=== PATIENT | female | born 1945 | race Caucasian/White ===

== ENCOUNTER 2018-05-27 03:11 | Emergency (ER) | payer OTHER ==
--- OUTSIDE RECORDS SUMMARY | 2018-05-27 03:13 | XMS REPORT | Clinical Summary ---
:1945 Author Organization [facility] Address [address] [place] [address] Phone Care Team Providers Name Role Phone Unavailable Primary Care Provider Unavailable Allergies No Known Allergies Current Medications Prescription Sig. Disp. Refills Start Date End Date Status losartan (COZAAR) 50 Take 50 mg by Active MG tablet mouth daily. atorvastatin (LIPITOR) Take 10 mg by Active 10 MG tablet mouth daily. rivaroxaban (XARELTO) Take 1 tablet 60 tablet 0 10/06/2016 Active 20 mg Tab tablet (20 mg total) by mouth daily. aspirin 81 MG EC Take 1 tablet 90 tablet 3 09/29/2016 09/29/2017 tablet (81 mg total) by mouth daily. Active Problems Problem Noted Date Tachycardia 09/28/2016 SVT (supraventricular tachycardia) (HCC) 09/28/2016 Varicose veins of bilateral lower extremities with other complications 2016 Acute pulmonary embolism (HCC) 09/28/2016 Pulmonary embolism (HCC) 09/28/2016 Social History Tobacco Use Types Packs/Day Years Used Date Never Smoker Alcohol Use Drinks/Week oz/Week Comments No Sex Assigned at Date Recorded Not on file Last Filed Vital Signs Not on file Plan of Treatment Not on file Results Not on fileafter 05/26/2017
--- OUTSIDE RECORDS SUMMARY | 2018-05-27 03:13 | XMS REPORT | Clinical Summary ---
:1945 Author Organization [facility] Address [address] [place] [address] Care Team Providers Name Role Phone Rosalee Resendez MD Primary Care Provider Allergies Active Allergy Reactions Severity Noted Date Comments Ezetimibe Other (See Comments) 01/20/2016 Body aches, dizziness Neuromuscular Blockers, Other (See Comments) 01/20/2016 Patient not sure why Steroidal this is here Loss of appetite, anxious, dperession Current Medications Prescription Sig. Disp. Refills Start Date End Date Status atorvastatin TAKE 1 TABLET 90 tablet 1 10/20/2016 Active (LIPITOR) 10 MG EVERY DAY tablet acetaminophen Take 500 mg by Active (TYLENOL) 500 MG mouth as needed tablet for mild pain. Takes one tab po a few times a week. aspirin (ECOTRIN) Take 81 mg by Active 81 MG enteric mouth daily. coated tablet naproxen sodium Take 220 mg by Active (ALEVE) 220 MG mouth as needed tablet (As needed for arthritis pain). atorvastatin TAKE 1 TABLET 90 tablet 2 11/01/2017 Active (LIPITOR) 10 MG BY MOUTH EVERY tablet NIGHT losartan (COZAAR) TAKE 1 TABLET 90 tablet 1 02/05/2018 Active 50 MG tablet EVERY DAY losartan (COZAAR) TAKE 1 TABLET 90 tablet 3 11/06/2016 Discontinued 50 MG tablet EVERY DAY 8 Active Problems Problem Noted Date Acute deep vein thrombosis (DVT) of proximal vein of left lower extremity 09/2016 (HCC) Overview: Following varicose vein stripping in 09/2016. Complicated by PE. Treated for 3 months with Xarelto Primary osteoarthritis involving multiple joints 01/19/2017 Pulmonary embolism (HCC) 09/28/2016 Vitamin D deficiency 03/07/2016 Varicose veins of both lower extremities 03/07/2016 Osteopenia 03/07/2016 Knee pain 03/07/2016 HLD (hyperlipidemia) 03/07/2016 Bilateral hearing loss 03/07/2016 Overview: Severe hearing loss, wears right sided hearing aide but relies heavily on lip reading Essential hypertension 03/07/2016 Impaired fasting glucose 03/07/2016 Encounters Date Type Specialty Care Team Description 02/04/2018 Refill Internal Medicine Rosalee Resendez MD 10/30/2017 Refill Internal Medicine Rosalee Resendez MD 05/29/2017 Hospital Encounter Radiology Rosalee Resendez, Encounter for MD screening mammogram for malignant neoplasm of breast after 05/26/2017 Family History Medical History Relation Name Comments Heart failure Mother Other Mother PACEMAKER; conduction disorder of the heart Hypertension Other essential hypertension Relation Name Status Comments Mother Other Social History Tobacco Use Types Packs/Day Years Used Date Never Smoker Alcohol Use Drinks/Week oz/Week Comments No Sex Assigned at Date Recorded Not on file Last Filed Vital Signs Not on file Plan of Treatment Health Maintenance Due Date Last Done Comments SHINGRIX VACCINE (#1) 1993 DXA SCAN 08/10/2017 08/10/2015 BREAST CANCER SCREENING 05/29/2019 05/29/2017, 05/02/2016, 08/20/2014 COLON CANCER SCREENING Excluded INFLUENZA VACCINE Excluded PNEUMOCOCCAL POLYSACCHARIDE VACCINE Excluded AGE 65 AND OVER PNEUMOCOCCAL-13 Excluded ZOSTER VACCINE Excluded Procedures Procedure Name Priority Date/Time Associated Diagnosis Comments MAMMO SCREENING W Routine 05/29/2017 9:52 AM Encounter for Results for this CAD BILATERAL CDT screening mammogram procedure are in for malignant the results neoplasm of breast section. after 05/26/2017 Results Mammo Screening w Cad Bilateral (05/29/2017 9:52 AM) Narrative Performed At PROCEDURE: [facility] MAMMO SCREENING W CAD BILATERAL Computer-assisted detection was utilized for the interpretation of this exam. COMPARISON: 2015 TECHNIQUE: Bilateral digital screening mammogram was performed and interpreted using computer-assisted detection. CLINICAL HISTORY: The patient has no current palpable breast complaints. FINDINGS: Bilateral mammogram demonstrates the breast parenchyma to be scattered fibroglandular densities. LEFT:No specific features of malignancy. RIGHT: No specific features of malignancy. IMPRESSION: BI-RADS Category 2. Benign finding(s). Recommend comparison with physical exam and annual screening mammography. There has been no significant interval change from prior studies. This facility is accredited by [employer] for Mammography. A negative x-ray report should not delay biopsy if a dominant or clinically suspicious mass is present. Not all cancers are identified by x-ray. [id number] Performing Organization Address City/State/Zipcode Phone Number [facility] [address] [place] [address] after 05/26/2017 Insurance Payer Benefit Plan / Group Subscriber ID Type Phone Address MEDICARE MEDICARE PART A AND B xxxxxxxxxx Medicare [place], [place] AETNA AETNA [facility] INDEMNITY xxxxxxxxx Ind[facility]ity [facility] y [phone] [place], [place] [id number]
[2018-05-27] MEDS ORDERED: IPRATROPIUM BROM 0.5MG/2.5ML ONE (03:49)
[2018-05-27] MEDS ORDERED: ALBUTEROL 2.5 MG/3 ML NEB SOL ONE (03:49)
[2018-05-27 03:50] LABS: Absolute Lymphocytes (CBC) 2.3 K/uL (0.7-4.9); Absolute Monocytes 0.5 K/uL (0.1-1.3); Absolute Neutrophil 3.6 K/uL (1.8-8.0); Basophils % 0.4 % (0-1.3); Eosinophils % 2.6 % (0-4.4); Hematocrit 38.6 % (36.0-45.0); Lymphocytes % 34.8 % (15.3-44.8); MCH 28.9 pg (27.0-35.0); MCV 82.1 fL (80-100); Monocytes % 8.2 % (3.3-12.3)
[2018-05-27 04:09] LABS: ALT/SGPT 27 U/L (12-78); AST/SGOT 19 U/L (15-37); Albumin 3.7 g/dL (3.4-5.0); Alkaline Phosphatase 74 U/L (45-117); BUN Blood Urea Nitrogen 14 mg/dL (7-18); Bicarbonate 21 mmol/L (21-32); Bilirubin Direct 0.1 mg/dL (0-0.2); Bilirubin Total 0.4 mg/dL (0.2-1.0); CKMB Creatine Kinase MB 3.3 ng/mL (0.3-3.6); Creatine Phosphokinase 115 U/L (26-192); Glucose Level 94 mg/dL (74-106); Lipase 315 U/L (73-393); NT PRO-BNP 51 pg/mL (<450); Potassium 3.5 mmol/L (3.5-5.1); Protein, Total 7.3 g/dL (6.4-8.2); Sodium Level 140 mmol/L (136-145); Troponin (Emerg Dept Use Only) < 0.02 ng/mL (0.0-0.045)
--- NOTE | 2018-05-27 05:51 | EDPHYS ---
Physician Documentation [facility] Name: Rosario Randhawa Age: 73 yrs Sex: Female : 1945 Arrival Date: 05/27/2018 Time: 03:19 Bed 6 Private MD: ED Physician Alonso Chan HPI: 05/27 04:55 This 73 yrs old Female presents to ER via EMS with complaints of Shortness Of tw4 Breath. 04:55 The patient has shortness of breath at rest. Onset: The symptoms/episode began/occurred tw4 today. Duration: The symptoms are continuous, and are unchanged since they started. The patient's shortness of breath has no apparent modifying factors. Associated signs and symptoms: The patient has no apparent associated signs or symptoms. Severity of symptoms: At their worst the symptoms were moderate in the emergency department the symptoms are unchanged. The patient has not experienced similar symptoms in the past. The patient has not recently seen a physician. Historical: - Allergies: 03:34 No Known Allergies; ea - Home Meds: 03:34 losartan 50 mg Oral tab 1 tab once daily [Active]; atorvastatin 10 mg Oral tab 1 tab ea once daily [Active]; amoxicillin 500 mg Oral cap 1 cap 3 times per day [Active]; - PMHx: 03:34 Hypertension; High Cholesterol; Arthritis; ea - PSHx: 03:34 vericose vein surg to left lower leg; bladder susp; ea - Immunization history:: Adult Immunizations up to date. - Social history:: Smoking status: Patient/guardian denies using tobacco. - Ebola Screening: : No symptoms or risks identified at this time. ROS: 04:55 Constitutional: Negative for fever, chills, and weight loss, Cardiovascular: Negative tw4 for chest pain, palpitations, and edema, Abdomen/GI: Negative for abdominal pain, nausea, vomiting, diarrhea, and constipation, MS/Extremity: Negative for injury and deformity, Skin: Negative for injury, rash, and discoloration, Neuro: Negative for headache, weakness, numbness, tingling, and seizure. 04:55 Respiratory: Positive for cough, pleurisy, shortness of breath, Negative for dyspnea on exertion, hemoptysis, orthopnea. Exam: 04:55 Constitutional: This is a well developed, well nourished patient who is awake, alert, tw4 and in no acute distress. Head/Face: Normocephalic, atraumatic. Chest/axilla: Normal chest wall appearance and motion. Nontender with no deformity. No lesions are appreciated. Cardiovascular: Regular rate and rhythm with a normal S1 and S2. No gallops, murmurs, or rubs. Normal PMI, no JVD. No pulse deficits. Respiratory: Lungs have equal breath sounds bilaterally, clear to auscultation and percussion. No rales, rhonchi or wheezes noted. No increased work of breathing, no retractions or nasal flaring. Abdomen/GI: Soft, non-tender, with normal bowel sounds. No distension or tympany. No guarding or rebound. No evidence of tenderness throughout. Back: No spinal tenderness. No costovertebral tenderness. Full range of motion. MS/ Extremity: Pulses equal, no cyanosis. Neurovascular intact. Full, normal range of motion. Neuro: Awake and alert, GCS 15, oriented to person, place, time, and situation. Cranial nerves II-XII grossly intact. Motor strength 5/5 in all extremities. Sensory grossly intact. Cerebellar exam normal. Normal gait. Vital Signs: 03:08 BP 148 / 102; Pulse 76; Resp 22; Temp 98(O); Pulse Ox 99% on R/A; Weight 81.65 kg; ea Height 5 ft. 6 in. (167.64 cm); 04:22 BP 149 / 81; Pulse 64; Resp 20; Pulse Ox 100% on R/A; ea 05:09 BP 140 / 78; Pulse 100; Resp 20; Pulse Ox 98% ; ea 06:29 BP 130 / 70; Pulse 70; Resp 20; Temp 98(O); Pulse Ox 99% ; ea 03:08 Body Mass Index 29.05 (81.65 kg, 167.64 cm) ea MDM: 03:19 Patient medically screened. tw4 05:47 Differential diagnosis: Anemia Anxiety Reaction pneumonia, pulmonary edema, reactive tw4 airway disease. Data reviewed: vital signs, nurses notes. Data interpreted: Pulse oximetry: Interpretation: normal. Counseling: I had a detailed discussion with the patient and/or guardian regarding: the historical points, exam findings, and any diagnostic results supporting the discharge/admit diagnosis. Medication response: Response to treatment: the patient's symptoms have resolved after treatment, and as a result, I will discharge patient. Special discussion: I discussed with the patient/guardian in detail that at this point there is no indication for admission to the hospital. It is understood, however, that if the symptoms persist or worsen the patient needs to return immediately for re-evaluation. 05/27 03:20 Order name: BMP; Complete Time: 04:54 05/27 04:54 Interpretation: Normal except: GFR 82. 05/27 03:20 Order name: CBC with Diff; Complete Time: 04:54 05/27 04:54 Interpretation: Within normal limits. 05/27 03:20 Order name: Ckmb; Complete Time: 04:54 05/27 03:20 Order name: CPK; Complete Time: 04:54 05/27 03:20 Order name: Hepatic Function; Complete Time: 04:54 05/27 04:54 Interpretation: Normal except: GLOB 3.6; A/G 1.0. 05/27 03:20 Order name: Lipase; Complete Time: 04:54 05/27 03:20 Order name: NT PRO-BNP; Complete Time: 04:54 05/27 03:20 Order name: Troponin (emerg Dept Use Only); Complete Time: 04:54 05/27 03:20 Order name: EKG; Complete Time: 03:20 05/27 03:20 Order name: Cardiac monitoring; Complete Time: 03:20 05/27 03:20 Order name: EKG - Nurse/Tech; Complete Time: 03:30 05/27 03:20 Order name: IV Saline Lock; Complete Time: 03:20 05/27 04:54 Order name: CXR XRAY 05/27 03:20 Order name: Labs collected and sent; Complete Time: 03:47 05/27 03:20 Order name: O2 Per Protocol; Complete Time: 03:21 05/27 03:20 Order name: O2 Sat Monitoring; Complete Time: 03:21 tw4 Administered Medications: 03:46 Drug: Albuterol - atroVENT (3:1) (2.5 mg - 0.5 mg) 3 ml Route: Nebulizer; ea 04:36 Follow up: Response: No adverse reaction; Marked relief of symptoms ea Disposition: 05/27/18 05:50 Discharged to Home. Impression: Bronchitis, not specified as acute or chronic. - Condition is Stable. - Discharge Instructions: Acute Bronchitis, Adult, Metered Dose Inhaler with Spacer. - Prescriptions for Tessalon Perles 100 mg Oral Capsule - take 1 capsule by ORAL route every 8 hours As needed; 15 capsule. Guaifenesin AC 10- 100 mg/5 mL Oral Liquid - take 10 milliliter by ORAL route every 4 hours As needed; 240 milliliter. Albuterol Sulfate 90 mcg/actuation - inhale 1-2 puff by INHALATION route every 4-6 hours; 1 Inhaler. Albuterol Sulfate 2.5 mg /3 mL (0.083 %) Inhalation Solution for Nebulization - inhale 1 unit by NEBULIZATION route every 8 hours As needed; 1 box. - Medication Reconciliation Form, Thank You Letter, Antibiotic Education, Prescription Opioid Use form. - Follow up: Private Physician; When: Upon discharge from the Emergency Department; Reason: Recheck today's complaints, Re-evaluation by your physician. - Problem is new. - Symptoms have improved. Signatures: Dispatcher [employer] EDMS Maryan Peralta RN RN ea Wadley, Terrence, MD MD tw4 Corrections: (The following items were deleted from the chart) 06:31 05:50 05/27/2018 05:50 Discharged to Home. Impression: Bronchitis, not specified as ea acute or chronic. Condition is Stable. Forms are Medication Reconciliation Form, Thank You Letter, Antibiotic Education, Prescription Opioid Use. Follow up: Private Physician; When: Upon discharge from the Emergency Department; Reason: Recheck today's complaints, Re-evaluation by your physician. Problem is new. Symptoms have improved. tw4
--- NOTE | 2018-05-27 05:51 | ER ---
Nurse's Notes [facility] Name: Rosario Randhawa Age: 73 yrs Sex: Female : 1945 Arrival Date: 05/27/2018 Time: 03:19 Bed 6 Private MD: Diagnosis: Bronchitis, not specified as acute or chronic Presentation: 05/27 03:05 Presenting complaint: EMS states: Pt reported she was sitting on her recliner and ea started feeling short of breath. Pt reports being diagnosed Sunday with a sinus infection and was prescribed Amoxicillin. Transition of care: patient was not received from another setting of care. Onset of symptoms was May 27, 2018. Risk Assessment: Do you want to hurt yourself or someone else? Patient reports no desire to harm self or others. Initial Sepsis Screen: Does the patient meet any 2 criteria? RR > 20 per min. No. Patient's initial sepsis screen is negative. Does the patient have a suspected source of infection? No. Patient's initial sepsis screen is negative. Care prior to arrival: None. 03:05 Method Of Arrival: EMS: [facility] ea 03:05 Acuity: JOSE 3 ea Triage Assessment: 03:30 General: Appears uncomfortable, Behavior is appropriate for age, restless. Pain: Denies ea pain. Neuro: Level of Consciousness is awake, alert, obeys commands, Oriented to person, place, time. Cardiovascular: Heart tones S1 S2 present Patient's skin is warm and dry. Respiratory: Reports shortness of breath cough that is productive, Airway is patent Respiratory effort is even, unlabored, Respiratory pattern is regular, symmetrical, Breath sounds are clear bilaterally. Onset: The symptoms/episode began/occurred Sunday, the patient has mild shortness of breath. Derm: Skin is pink, warm \T\ dry. Historical: - Allergies: 03:34 No Known Allergies; ea - Home Meds: 03:34 losartan 50 mg Oral tab 1 tab once daily [Active]; atorvastatin 10 mg Oral tab 1 tab ea once daily [Active]; amoxicillin 500 mg Oral cap 1 cap 3 times per day [Active]; - PMHx: 03:34 Hypertension; High Cholesterol; Arthritis; ea - PSHx: 03:34 vericose vein surg to left lower leg; bladder susp; ea - Immunization history:: Adult Immunizations up to date. - Social history:: Smoking status: Patient/guardian denies using tobacco. - Ebola Screening: : No symptoms or risks identified at this time. Screenin:29 Abuse screen: Denies threats or abuse. Nutritional screening: No deficits noted. ea Tuberculosis screening: No symptoms or risk factors identified. Fall Risk None identified. Assessment: 04:21 Reassessment: Patient and/or family updated on plan of care and expected duration. Pain ea level reassessed. Patient is alert, oriented x 3, equal unlabored respirations, skin warm/dry/pink. 05:09 Reassessment: Patient and/or family updated on plan of care and expected duration. Pain ea level reassessed. Patient is alert, oriented x 3, equal unlabored respirations, skin warm/dry/pink. Patient states symptoms have improved. 06:28 Reassessment: Patient and/or family updated on plan of care and expected duration. Pain ea level reassessed. Patient is alert, oriented x 3, equal unlabored respirations, skin warm/dry/pink. Discharge instructions given to patient, verbalized the understanding of instruction. Patient states symptoms have improved. 06:29 Cardiovascular: Rhythm is. ea Vital Signs: 03:08 BP 148 / 102; Pulse 76; Resp 22; Temp 98(O); Pulse Ox 99% on R/A; Weight 81.65 kg; ea Height 5 ft. 6 in. (167.64 cm); 04:22 BP 149 / 81; Pulse 64; Resp 20; Pulse Ox 100% on R/A; ea 05:09 BP 140 / 78; Pulse 100; Resp 20; Pulse Ox 98% ; ea 06:29 BP 130 / 70; Pulse 70; Resp 20; Temp 98(O); Pulse Ox 99% ; ea 03:08 Body Mass Index 29.05 (81.65 kg, 167.64 cm) ea ED Course: 03:18 Inserted saline lock: 20 gauge in right antecubital area, using aseptic technique. [id number] Blood collected. 03:19 Patient arrived in ED. ea 03:19 Alonso Chan MD is Attending Physician. tw4 03:19 Arm band placed on right wrist. 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 03:28 Triage completed. ea 03:30 EKG done, by ED staff, reviewed by Alonso Chan MD. ao 03:32 Patient has correct armband on for positive identification. Bed in low position. Call ea light in reach. Side rails up X2. 03:36 Maryan Peralta, RN is Primary Nurse. ea 05:07 X-ray completed. Portable x-ray completed in exam room. Patient tolerated procedure kw well. 05:09 CXR XRAY In Process Unspecified. EDMS 06:00 No provider procedures requiring assistance completed. ea 06:28 IV discontinued, intact, bleeding controlled, No redness/swelling at site. Pressure ea dressing applied. Administered Medications: 03:46 Drug: Albuterol - atroVENT (3:1) (2.5 mg - 0.5 mg) 3 ml Route: Nebulizer; ea 04:36 Follow up: Response: No adverse reaction; Marked relief of symptoms ea Outcome: 05:50 Discharge ordered by . tw4 06:29 Discharged to home via wheelchair, with family. ea 06:29 Condition: improved 06:29 Discharge instructions given to patient, Instructed on discharge instructions, follow up and referral plans. medication usage, Demonstrated understanding of instructions, follow-up care, medications, Prescriptions given X 3. 06:31 Patient left the ED. ea Signatures: Dispatcher [employer] EDMS Lizeth Cherry Alex, RN RN Quyen Heller jb5 Maryan Peralta, RN RN Alonso Rivera MD MD tw4
[2018-05-27 06:42] VITALS: BP 130/70; TEMP 98; O2SAT 99
--- NOTE | 2018-05-27 07:26 | EKG ---
Test Date: 2018-05-27 Test Time: 03:27:46 Milk Of Lime Slaker: JOSE MANUEL MEASUREMENT RESULTS: Intervals: Rate: 72 PA: 178 QRSD: 106 QT: 392 QTc: 429 [place]: P: 77 PA: 178 QRS: 62 T: 59 INTERPRETIVE STATEMENTS: Normal sinus rhythm Normal ECG Compared to ECG 09/27/2016 21:17:14 No significant changes Electronically Signed On 05-27-18 07:26:03 CDT by Price Flowers
--- NOTE | 2018-05-27 08:51 | RAD REPORT ---
EXAM DESCRIPTION: RAD - Chest Single View - 05/27/2018 5:10 am CLINICAL HISTORY: CONGESTION Chest pain. COMPARISON: Chest Single View dated 09/27/2016; CHEST SINGLE VIEW dated 11/23/2013; CHEST PA AND LAT 2 V IEW dated 11/14/2013; CHEST PA AND LAT 2 VIEW dated 08/18/2002 FINDINGS: Portable technique limits examination quality. Vague opacity is present in the medial right lung base which may represent developing pneumonia. The heart is upper limit normal in size. No displaced fractures.
== END 2018-05-27 06:31 | disposition home or self-care (01) ==
LOC: ER 03:11
DX: J40 Bronchitis, not specified as acute or chronic (principal); I10 Essential (primary) hypertension; E78.00 Pure hypercholesterolemia, unspecified
CPT/HCPCS: 36415; 71045; 80048; 80076; 82550; 82553; 83690; 83880; 84484; 85025; 93005; 94640; 99285

== ENCOUNTER 2019-08-21 19:27 | Emergency (ER) | payer OTHER ==
--- OUTSIDE RECORDS SUMMARY | 2019-08-21 19:29 | XMS REPORT | Summary of Care ---
:1945 [address] [facility] Address [address] [place] [address] Care Team Providers Name Role Phone Craig Cooper Primary Care Provider Encounter Details Date Type Department Care Team Description 03/27/[address] [facility] Doctor Unassigned, No [address] [facility] [place] [address] [address] [place] [address] Allergies No Known Allergiesdocumented as of this encounter (statuses as of 03/27/2019) Medications Medication Sig Dispensed Refills Start Date End Date Status losartan 100 mg tablet Take 100 mg by 0 Active mouth daily. documented as of this encounter (statuses as of 03/27/2019) Active Problems No known active problemsdocumented as of this encounter (statuses as of 2018) Social History Tobacco Use Types Packs/Day Years Used Date Never Smoker Smokeless Tobacco: Never Used Alcohol Use Drinks/Week oz/Week Comments Never Alcohol Habits Answer Date Recorded How often do you have a drink containing alcohol? Never 03/26/2019 How many drinks containing alcohol do you have on a typical Not asked day when you are drinking? How often do you have six or more drinks on one occasion? Not asked Sex Assigned at Date Recorded Not on file Job Start Date Occupation Industry Not on file Not on file Not on file Travel History Travel Start Travel End No recent travel history available. documented as of this encounter Last Filed Vital Signs Not on filedocumented in this encounter Plan of Treatment Health Maintenance Due Date Last Done Comments DTaP,Tdap,and Td Vaccines (1 - Tdap) 1962 MAMMOGRAM 1983 COLONOSCOPY 1993 Zoster Recombinant Vaccine (SHINGRIX) (1 of 2) 1993 Medicare Wellness Visit 2008 Osteoporosis Screening 2008 PNEUMOCOCCAL VACCINES 65+ (1 of 2 - PCV13) 2008 INFLUENZA VACCINE 04/20/2019 documented as of this encounter Implants Implanted Type Area Cashier Clerk Device Shelf Model / Identifier Expiration Date Serial / Lot Lens, Landen #[id number] - [id number] LENS Right: Landen 07/19/2023 [id number] / Implanted: Qty: 1 on 03/27/2019 by Tommy Baptiste MD at [facility] Eye [id number] / N/A documented as of this encounter Procedures Procedure Name Priority Date/Time Associated Diagnosis DAY SURGERY - ADC Routine 03/27/2019 12:01 AM CDT documented in this encounter Results Not on filedocumented in this encounter Insurance Payer Benefit Plan / Subscriber ID Effective Dates Phone Address Type Group MEDICARE MEDICARE PART A xxxxxxxxxxx 2008-Rakesh [id number] [place] [id number] AETNA AETNA INDEMNITY [id number] 2013-Rakesh Indemnity t documented as of this encounter
--- OUTSIDE RECORDS SUMMARY | 2019-08-21 19:29 | XMS REPORT | Summary of Care ---
:1945 Author Organization [facility] Address [address] [place] [id number] Care Team Providers Name Role Phone Allison Craig Velasquez Primary Care Provider Reason for Visit Auth/Cert Status Reason Specialty Diagnoses / Procedures Referred By Contact Referred To Contact Surgery Diagnoses Age-related nuclear cataract, right eye cataract Right eye Adc Pre/Pacu/Post Procedures MO REMV CATARACT EXTRACAP,INSERT LENS PHACOEMULSIFICATION OF CATARACT WITH INTRAOCULAR LENS IMPLANT [address] [place] [address] [place] [address] Encounter Details Date Type Department Care Team Description 03/27/2019 Hospital Encounter [facility] MD Anthony [address] [place] [address] [address] [place] [address] [place] [address] [place] [phone] Allergies No Known Allergiesdocumented as of this [...] of this encounter Last Filed Vital Signs Vital Sign Reading Time Taken Comments Blood Pressure 158/74 03/27/2019 11:05 AM CDT Pulse 55 03/27/2019 11:05 AM CDT Temperature 36.5 C (97.7 F) 03/27/2019 11:05 AM CDT Respiratory Rate 16 03/27/2019 11:05 AM CDT Oxygen Saturation 97% 03/27/2019 11:05 AM CDT Inhaled Oxygen Concentration - - Weight 70.3 kg (155 lb) 03/26/2019 11:00 AM CDT Height 160 cm (5' 3") 03/26/2019 11:00 AM CDT Body Mass Index 27.46 03/26/2019 11:00 AM CDT documented in this encounter Discharge Summaries Tommy Baptiste MD - 03/27/2019 8:31 AM CDTCONDITION AT DISCHARGE: Patient was discharged from the facility in stable condition. Please see discharge instructions. FOLLOW UP CARE: See post op instructions. DISCHARGE DISPOSITION: HOME DISCHARGE INSTRUCTIONS GIVEN TO: PATIENT documented in this encounter Discharge Instructions InstructionsUriel Rubio RN - 03/27/2019CATARACT DISCHARGE INSTRUCTIONS 1. DO NOT Remove the eye patch. Leave on until you post-operative visit tomorrow. Keep it dry. 2. Activities as tolerated 3. Please no heavy lifting, and do not drive or operate machinery until you are seen by a doctor on your first post op day. 4. Your depth perception may be off, so walk a little slower. Be careful on steps or stairs and uneven ground and go slower around corners. 5. Most likely your eye will stay numb until tomorrow and you should not experience any extreme pain. However, if you should have bad pain or nausea, please call the doctor's office or hospital automatic winder operator to get in touch with doctor. 6. For mild discomfort or a headache, you may take Tylenol, Aspirin, or Ibuprofen (in not allergic). 7. You may resume your pre-operative diet. 8. If you have any further questions or concerns, please call the office or hospital automatic winder operator to getin touch with the doctor. documented in this encounter Plan of Treatment Health Maintenance Due Date Last Done Comments DTaP,Tdap,and Td Vaccines (1 - Tdap) 1962 MAMMOGRAM 1983 COLONOSCOPY 1993 Zoster Recombinant Vaccine (SHINGRIX) (1 of 2) 1993 Medicare Wellness Visit 2008 Osteoporosis Screening 2008 PNEUMOCOCCAL VACCINES 65+ (1 of 2 - PCV13) 2008 INFLUENZA VACCINE 04/20/2019 documented as of this encounter Implants Implanted Type Area Guide Device Shelf Model / Identifier Expiration Date Serial / Lot Lens, Landen #[id number] - [id number] LENS Right: Landen 07/19/2023 [id number] / Implanted: Qty: 1 on 03/27/2019 by Tommy Baptiste MD at [facility] Eye [id number] / N/A documented as of this encounter Procedures Procedure Name Priority Date/Time Associated Diagnosis Comments NOTICE OF PRIVACY Routine 03/18/2019 3:14 PM PRACTICES CDT CONSENT/REFUSAL FOR Routine 03/18/2019 3:14 PM DIAGNOSIS AND TREATMENT CDT CONSENT/REFUSAL FOR Routine 03/18/2019 3:13 PM DIAGNOSIS AND TREATMENT CDT ASSIGNMENT OF BENEFITS Routine 03/18/2019 3:13 PM CDT ASSIGNMENT OF BENEFITS Routine 03/18/2019 3:13 PM CDT PHYSICIAN ORDERS Routine 03/18/2019 12:01 AM CDT documented in this encounter Results Not on filedocumented in this encounter Visit Diagnoses Diagnosis Nuclear sclerotic cataract, right - Primary documented in this encounter Administered Medications Medication Order MAR Action Action Date Dose Rate Site balanced salt irrig soln Given 03/27/2019 10:30 AM CDT 500 mL Right Eye comb1 (BSS PLUS) ophthalmic solution 500 mL bag PRN, Starting Maria Elena 03/27/19 at 1030, Until Discontinued, Routine, Intra-op bupivacaine (preserv free) Given 03/27/2019 10:30 AM CDT 5.5 mL Right Eye (SENSORCAINE MPF) 0.75 % (7.5 mg/mL) injection PRN, Starting Maria Elena 03/27/19 at 1030, Until Discontinued, Routine, Intra-op ceFAZolin (ANCEF) injection Given 03/27/2019 10:30 AM CDT 0.1 mL Right Eye PRN, Starting Maria Elena 03/27/19 at 1030, Until Discontinued, SUDHIR, Intra-op dexamethasone (DECADRON PHOSPHATE) injection Given 03/27/2019 10:30 AM CDT 0.2 mL PRN, Starting Maria Elena 03/27/19 at 1030, Until Discontinued, Routine, Intra-op DUOVISC (DUOVISC VISCO ELASTIC) 3 %-4 Given 03/27/2019 10:30 AM CDT 1 Kit Right Eye %(0.5 mL) 1 % (0.55 mL) intraocular injection PRN, Starting Sun03/27/19 at 1030, Until Discontinued, Routine, Intra-op EPINEPHrine (PF) 1:1,000 (1 mg/mL) Given 03/27/2019 10:30 AM CDT 0.5 mg Right Eye (ADRENALIN (PF)) injection PRN, Starting Maria Elena 03/27/19 at 1030, Until Discontinued, Routine, Intra-op gentamicin injection Given 03/27/2019 10:30 AM CDT 0.1 mL Right Eye PRN, Starting Maria Elena 03/27/19 at 1056, Until Discontinued, SUDHIR, Intra-op lidocaine-epinephrine (XYLOCAINE Given 03/27/2019 10:30 AM CDT 5.5 mL Right Eye W/EPINEPHRINE) 2 %-1:200,000 injection PRN, Starting Sun03/27/19 at 1030, Until Discontinued, Routine, Intra-op qkrqczhs-xgqfmjrtg-plaffmqglccuf Given 03/27/2019 10:30 0.5 Inches Right Eye (MAXITROL) 3.5 mg/g-10,000 unit/g-0.1 % AM CDT ophthalmic ointment PRN, Starting Sun03/27/19 at 1030, Until Discontinued, Routine, Intra-op sodium chloride (NS) injection Given 03/27/2019 10:30 AM CDT 10 mL Right Eye PRN, Starting Sun03/27/19 at 1057, Until Discontinued, Routine, Intra-op tetracaine (PONTOCAINE) 0.5 % Given 03/27/2019 10:30 AM CDT 3 Drops Right Eye ophthalmic drops PRN, Starting Sun03/27/19 at 1030, Until Discontinued, Routine, Intra-op water for irrigation irrigation Given 03/27/2019 10:30 AM CDT 50 mL Right Eye solution PRN, Starting Maria Elena 03/27/19 at 1030, Until Discontinued, Routine, Intra-op Medication Order MAR Action Action Date Dose Rate Site lactated ringers IV infusion New Bag 03/27/2019 8:54 AM CDT 500 mL 20 mL/ hr 500 mL at 20 mL/hr, 500 mL, IV Infusion, ONCE, 1 dose, Maria Elena 03/27/19 at 0830, Routine, DSU Pre-op mydriatic #5 ophthalmic solution 0.5 mL Given 03/27/2019 9:02 AM CDT 0.5 mL syringe 0.5 mL, Right Eye, ONCE, 1 dose, Maria Elena 03/27/19 at 0845, Routine, DSU Pre-op documented in this encounter Insurance Payer Benefit Plan / Subscriber ID Effective Dates Phone Address Type Group MEDICARE MEDICARE PART A xxxxxxxxxxx 2008-Rakesh [id number] [place] [id number] AETNA AETNA INDEMNITY [id number] 2013-Rakesh oliva (Home) [place] [address] documented as of this encounter
--- OUTSIDE RECORDS SUMMARY | 2019-08-21 19:29 | XMS REPORT ---
:1945 [facility] Address [address] [place] [address] Care Team Providers Name Role Phone Unavailable Unavailable Unavailable Problems This patient has no known problems. Allergies, Adverse Reactions, Alerts This patient has no known allergies or adverse reactions. Medications This patient has no known medications.
--- NOTE | 2019-08-21 21:37 | EDPHYS ---
Physician Documentation [facility] Name: Rosario Randhawa Age: 74 yrs Sex: Female : 1945 Arrival Date: 08/21/2019 Time: 19:29 Bed 8 Private MD: ED Physician Tao Coleman HPI: 08/21 21:32 This 74 yrs old Female presents to ER via Ambulatory with complaints of Cough.kandice 21:32 The patient or guardian reports cough. Onset: The symptoms/episode began/occurred 4 kandice day(s) ago. Severity of symptoms: At their worst the symptoms were mild, in the emergency department the symptoms are unchanged. Modifying factors: The symptoms are alleviated by nothing, the symptoms are aggravated by nothing. Associated signs and symptoms: The patient has no apparent associated signs or symptoms. The patient has experienced similar episodes in the past, a few times. Historical: - Allergies: 19:37 "sensitive to anything that makes some drowsy"; jd3 - Home Meds: 19:37 losartan 100 mg oral tab 1 tab once daily [Active]; atorvastatin 10 mg Oral tab 1 tab jd3 once daily [Active]; - PMHx: 19:37 Arthritis; High Cholesterol; Hypertension; jd3 - PSHx: 19:37 vericose vein surg to left lower leg; bladder susp; jd3 - Immunization history:: Adult Immunizations up to date, Flu vaccine is not up to date. - Social history:: Smoking status: Patient/guardian denies using tobacco. - Ebola Screening: : Patient negative for fever greater than or equal to 101.5 degrees Fahrenheit, and additional compatible Ebola Virus Disease symptoms. ROS: 21:33 Constitutional: Negative for fever, chills, and weight loss, Eyes: Negative for injury, kandice pain, redness, and discharge, ENT: Negative for injury, pain, and discharge, Neck: Negative for injury, pain, and swelling, Cardiovascular: Negative for chest pain, palpitations, and edema, Abdomen/GI: Negative for abdominal pain, nausea, vomiting, diarrhea, and constipation, Back: Negative for injury and pain, : Negative for injury, bleeding, discharge, and swelling, MS/Extremity: Negative for injury and deformity, Skin: Negative for injury, rash, and discoloration, Neuro: Negative for headache, weakness, numbness, tingling, and seizure, Psych: Negative for depression, anxiety, suicide ideation, homicidal ideation, and hallucinations, Allergy/Immunology: Negative for hives, rash, and allergies, Endocrine: Negative for neck swelling, polydipsia, polyuria, polyphagia, and marked weight changes, Hematologic/Lymphatic: Negative for swollen nodes, abnormal bleeding, and unusual bruising. 21:33 Respiratory: Positive for cough, with no reported sputum. Exam: 21:33 Constitutional: This is a well developed, well nourished patient who is awake, alert, kandice and in no acute distress. Head/Face: Normocephalic, atraumatic. Eyes: Pupils equal round and reactive to light, extra-ocular motions intact. Lids and lashes normal. Conjunctiva and sclera are non-icteric and not injected. Cornea within normal limits. Periorbital areas with no swelling, redness, or edema. ENT: Nares patent. No nasal discharge, no septal abnormalities noted. Tympanic membranes are normal and external auditory canals are clear. Oropharynx with no redness, swelling, or masses, exudates, or evidence of obstruction, uvula midline. Mucous membranes moist. Neck: Trachea midline, no thyromegaly or masses palpated, and no cervical lymphadenopathy. Supple, full range of motion without nuchal rigidity, or vertebral point tenderness. No Meningismus. Chest/axilla: Normal chest wall appearance and motion. Nontender with no deformity. No lesions are appreciated. Cardiovascular: Regular rate and rhythm with a normal S1 and S2. No gallops, murmurs, or rubs. Normal PMI, no JVD. No pulse deficits. Respiratory: Lungs have equal breath sounds bilaterally, clear to auscultation and percussion. No rales, rhonchi or wheezes noted. No increased work of breathing, no retractions or nasal flaring. Abdomen/GI: Soft, non-tender, with normal bowel sounds. No distension or tympany. No guarding or rebound. No evidence of tenderness throughout. Back: No spinal tenderness. No costovertebral tenderness. Full range of motion. Skin: Warm, dry with normal turgor. Normal color with no rashes, no lesions, and no evidence of cellulitis. MS/ Extremity: Pulses equal, no cyanosis. Neurovascular intact. Full, normal range of motion. Neuro: Awake and alert, GCS 15, oriented to person, place, time, and situation. Cranial nerves II-XII grossly intact. Motor strength 5/5 in all extremities. Sensory grossly intact. Cerebellar exam normal. Normal gait. Psych: Awake, alert, with orientation to person, place and time. Behavior, mood, and affect are within normal limits. 21:33 Musculoskeletal/extremity: DVT Exam: No signs of deep vein thrombosis. no pain, no swelling, no tenderness, negative Homans' sign noted on exam, no appreciated bluish discoloration, no erythema, no increased warmth. Vital Signs: 19:37 BP 158 / 76; Pulse 102; Resp 20 S; Temp 98.1(O); Pulse Ox 98% on R/A; Weight 68.04 kg jd3 (R); Height 5 ft. 3 in. (160.02 cm) (R); Pain 8/10; 21:23 BP 122 / 83; Pulse 90; Resp 20; Pulse Ox 98% on R/A; aa1 22:03 BP 133 / 63; Pulse 81; Resp 20; Temp 98.3; Pulse Ox 99% on R/A; Pain 0/10; aa1 19:37 Body Mass Index 26.57 (68.04 kg, 160.02 cm) jd3 MDM: 20:49 Patient medically screened. [facility] 21:33 Data reviewed: vital signs, nurses notes, radiologic studies. [facility] 08/21 20:50 Order name: Chest Pa And Lat (2 Views) XRAY kandice Administered Medications: 21:50 Drug: predniSONE 40 mg Route: PO; aa 22:03 Follow up: Response: No adverse reaction; Medication administered at discharge. [facility] 21:50 Drug: Zithromax 500 mg Route: PO; aa1 22:03 Follow up: Response: No adverse reaction; Medication administered at discharge. [facility] 21:50 Drug: Xopenex 1.25 mg Route: Inhalation; aa1 Disposition: 08/21/19 21:35 Discharged to Home. Impression: Cough, Acute upper respiratory infection, unspecified. - Condition is Stable. - Discharge Instructions: Allergies, Adult, Upper Respiratory Infection, Adult, Cool Mist Vaporizer, Upper Respiratory Infection, Adult, Aoom-wb-Laor, Cough, Adult, Yxaz-hi-Kken. - Prescriptions for Bromfed DM 2- 30-10 mg/5 mL Oral syrup - take 10 milliliter by ORAL route every 4 hours; 160 milliliter. Zithromax Z- Antwan 250 mg Oral Tablet - take 1 tablet by ORAL route as directed for 5 days Day 1 - take two (2) tablets one time. Day 2, 3, 4 , 5 take one (1) tablet once daily.; 6 tablet. Medrol (Antwan) 4 mg Oral Tablets, Dose Pack - take 1 tablet by ORAL route as directed - follow package instructions; 1 packet. - Medication Reconciliation Form, Thank You Letter, Antibiotic Education, Prescription Opioid Use form. - Follow up: Ignacia Cooper MD; When: 2 - 3 days; Reason: Recheck today's complaints, Continuance of care, Re-evaluation by your physician. - Problem is new. - Symptoms have improved. Signatures: Dispatcher [employer] [facility] Rayna Lujan RN RN aa1 Tao Coleman MD MD cha Davies, Jonathon, RN RN jd3 Corrections: (The following items were deleted from the chart) 20:58 20:51 Chest Pa And Lat (2 Views)+[id number].BRZ ordered. [facility] 22:05 21:35 08/21/2019 21:35 Discharged to Home. Impression: Cough; Acute upper respiratory aa1 infection, unspecified. Condition is Stable. Forms are Medication Reconciliation Form, Thank You Letter, Antibiotic Education, Prescription Opioid Use. Follow up: Ignacia Cooper; When: 2 - 3 days; Reason: Recheck today's complaints, Continuance of care, Re-evaluation by your physician. Problem is new. Symptoms have improved. kandice
--- NOTE | 2019-08-21 21:37 | ER ---
Nurse's Notes [facility] Name: Rosario Randhawa Age: 74 yrs Sex: Female : 1945 Arrival Date: 08/21/2019 Time: 19:29 Bed 8 Private MD: Diagnosis: Cough;Acute upper respiratory infection, unspecified Presentation: 08/21 19:32 Presenting complaint: Patient states: "I have bad allergies and I went to see Dr. hardy Admin, but he wasn't there so I went to [facility] and they gave me a steroid shot and gave me cefdinir. this all started Sunday. My got me a chest congestion medicine form the store, but that has just made me very nauseous and my mouth feels like cotton.". Transition of care: patient was not received from another setting of care. Onset of symptoms was August 17, 2020. Risk Assessment: Do you want to hurt yourself or someone else? Patient reports no desire to harm self or others. Initial Sepsis Screen: Does the patient meet any 2 criteria? No. Patient's initial sepsis screen is negative. Does the patient have a suspected source of infection? No. Patient's initial sepsis screen is negative. Care prior to arrival: None. 19:32 Method Of Arrival: Ambulatory jd3 19:32 Acuity: JOSE 3 jd3 Historical: - Allergies: 19:37 "sensitive to anything that makes some drowsy"; jd3 - Home Meds: 19:37 losartan 100 mg oral tab 1 tab once daily [Active]; atorvastatin 10 mg Oral tab 1 tab jd3 once daily [Active]; - PMHx: 19:37 Arthritis; High Cholesterol; Hypertension; jd3 - PSHx: 19:37 vericose vein surg to left lower leg; bladder susp; jd3 - Immunization history:: Adult Immunizations up to date, Flu vaccine is not up to date. - Social history:: Smoking status: Patient/guardian denies using tobacco. - Ebola Screening: : Patient negative for fever greater than or equal to 101.5 degrees Fahrenheit, and additional compatible Ebola Virus Disease symptoms. Screenin:30 Abuse screen: Denies threats or abuse. Denies injuries from another. Nutritional aa1 screening: No deficits noted. Tuberculosis screening: No symptoms or risk factors identified. Fall Risk None identified. Assessment: 20:30 General: Appears in no apparent distress. comfortable, Behavior is calm, cooperative, aa1 appropriate for age. Pain:. Neuro: Level of Consciousness is awake, alert, obeys commands, Oriented to person, place, time, situation, Moves all extremities. Full function Gait is steady, Speech is normal. Cardiovascular: Heart tones S1 S2 present Rhythm is regular. Respiratory: Reports cough that is non-productive, Airway is patent Respiratory effort is even, unlabored, Respiratory pattern is regular, symmetrical. GI: Reports nausea. : No signs and/or symptoms were reported regarding the genitourinary system. EENT: No signs and/or symptoms were reported regarding the EENT system. Derm: Skin is intact, is healthy with good turgor, Skin is pink, warm \\T\\ dry. Musculoskeletal: Circulation, motion, and sensation intact. Capillary refill < 3 seconds. 21:23 Reassessment: Patient appears in no apparent distress at this time. Patient and/or aa1 family updated on plan of care and expected duration. Pain level reassessed. Patient is alert, oriented x 3, equal unlabored respirations, skin warm/dry/pink. Awaiting initial assessment from ERP. 21:50 Reassessment: Pt to be dc'd once breathing tx complete. aa1 22:03 Reassessment: Patient appears in no apparent distress at this time. Patient is alert, aa1 oriented x 3, equal unlabored respirations, skin warm/dry/pink. Discussed d/c \\T\\ f/u instructions with pt \\T\\ family; denies questions or concerns at this time. Ambulatory to lobby with steady gait. Vital Signs: 19:37 BP 158 / 76; Pulse 102; Resp 20 S; Temp 98.1(O); Pulse Ox 98% on R/A; Weight 68.04 kg jd3 (R); Height 5 ft. 3 in. (160.02 cm) (R); Pain 8/10; 21:23 BP 122 / 83; Pulse 90; Resp 20; Pulse Ox 98% on R/A; aa1 22:03 BP 133 / 63; Pulse 81; Resp 20; Temp 98.3; Pulse Ox 99% on R/A; Pain 0/10; aa1 19:37 Body Mass Index 26.57 (68.04 kg, 160.02 cm) jd3 ED Course: 19:29 Patient arrived in ED. cl3 19:35 Triage completed. jd3 19:38 Arm band placed on. jd3 20:30 Patient has correct armband on for positive identification. Placed in gown. Bed in low aa1 position. Call light in reach. Pulse ox on. NIBP on. Warm blanket given. 20:39 Stacy Vasques, RN is Primary Nurse. aj1 20:49 Tao Coleman MD is Attending Physician. [facility] 21:12 Chest Pa And Lat (2 Views) XRAY In Process Unspecified. EDMS 21:34 Ignacia Cooper MD is Referral Physician. kandice 22:03 No provider procedures requiring assistance completed. Patient did not have IV access aa1 during this emergency room visit. Administered Medications: 21:50 Drug: predniSONE 40 mg Route: PO; aa1 22:03 Follow up: Response: No adverse reaction; Medication administered at discharge. aa1 21:50 Drug: Zithromax 500 mg Route: PO; aa1 22:03 Follow up: Response: No adverse reaction; Medication administered at discharge. aa1 21:50 Drug: Xopenex 1.25 mg Route: Inhalation; aa1 Outcome: 21:35 Discharge ordered by . kandice 22:03 Discharged to home ambulatory, with significant other. aa1 22:03 Condition: good 22:03 Discharge instructions given to patient, significant other, Instructed on discharge instructions, follow up and referral plans. medication usage, Demonstrated understanding of instructions, follow-up care, medications, Prescriptions given X 3. 22:05 Patient left the ED. aa1 Signatures: Dispatcher [employer] EDKY Stacy Vasques, RN RN aj1 Rayna Lujan RN RN aa1 Tao Coleman MD MD cha Davies, Jonathon, RN RN jd3 Lewis, Charde cl3
[2019-08-21] MEDS ORDERED: LEVALBUTEROL 1.25 MG/3 ML NEB ONE (21:47)
[2019-08-21] MEDS ORDERED: AZITHROMYCIN 250 MG TAB ONE (21:47)
[2019-08-21] MEDS ORDERED: predniSONE 20 MG TAB ONE (21:47)
[2019-08-21 22:16] VITALS: BP 133/63; TEMP 98.3; O2SAT 99
--- NOTE | 2019-08-22 08:48 | RAD REPORT ---
EXAM DESCRIPTION: RAD - Chest Pa And Lat (2 Views) - 08/21/2019 9:11 pm CLINICAL HISTORY: COUGH COMPARISON: Chest Pa And Lat (2 Views) dated 05/29/2018 TECHNIQUE: Frontal and lateral views of the chest were obtained. FINDINGS: The lungs are clear of focal mass or consolidation. Baseline interstitial pattern is promi nent but unchanged. Heart size is normal and central vasculature is within normal limits. No pleur al effusion or pneumothorax seen. No acute bony finding noted. No aortic abnormality. IMPRESSION: No acute cardiopulmonary process. No significant change from comparison.
== END 2019-08-21 22:05 | disposition home or self-care (01) ==
LOC: ER 19:27
DX: J06.9 Acute upper respiratory infection, unspecified (principal); I10 Essential (primary) hypertension; E78.00 Pure hypercholesterolemia, unspecified
CPT/HCPCS: 71046; 99284; J7512

== ENCOUNTER 2019-12-22 14:40 | Emergency (ER) | payer OTHER ==
--- OUTSIDE RECORDS SUMMARY | 2019-12-22 14:42 | XMS REPORT ---
:1945 Author Organization [facility] t Address [address] [place] [address] Dr. Otero [address] [place] [address] Care Team Providers Name Role Phone Unavailable Unavailable Unavailable Problems This patient has no known problems. Allergies, Adverse Reactions, Alerts This patient has no known allergies or adverse reactions. Medications This patient has no known medications.
[2019-12-22] MEDS ORDERED: FENTANYL CITR 100 MCG/2 ML ONE (15:36)
[2019-12-22] MEDS ORDERED: LIDOCAINE 4% PATCH ONE (15:36)
[2019-12-22] MEDS ORDERED: ONDANSETRON 4 MG (ODT) TAB ONE (15:36)
--- NOTE | 2019-12-22 17:19 | ER ---
Nurse's Notes [facility] Name: Rosario Randhawa Age: 74 yrs Sex: Female : 1945 Arrival Date: 12/22/2019 Time: 14:41 Bed 19 Private MD: Ignacia Cooper C Diagnosis: Lumbago with sciatica, left side Presentation: 12/21 14:54 Chief complaint: Patient states: Here for follow-up x-rays as outpatient. Her left hip ll1 pain was so bad she was unable to complete all x-rays, so she came in ER for further evaluation of the hip/pain. Coronavirus screen: Proceed with normal triage. Patient denies a cough. Patient denies shortness of breath or difficulty breathing. Patient denies measured and/or subjective temperature greater than 100.4F prior to today's visit. Patient denies travel on a cruise ship or to a country the [facility] currently lists as an affected area. Patient denies contact with known and/or suspected case of COVID-19. Ebola Screen: Patient denies travel to an Ebola-affected area in the 21 days before illness onset. Initial Sepsis Screen: Does the patient meet any 2 criteria? No. Patient's initial sepsis screen is negative. Does the patient have a suspected source of infection? No. Patient's initial sepsis screen is negative. Risk Assessment: Do you want to hurt yourself or someone else? Patient reports no desire to harm self or others. Onset of symptoms was December 14, 2019. 14:54 Method Of Arrival: Wheelchair ll1 14:54 Acuity: JOSE 3 ll1 Historical: - Allergies: 14:57 "sensitive to anything that makes some drowsy"; ll1 - PMHx: 14:57 High Cholesterol; Hypertension; Arthritis; ll1 - PSHx: 14:57 vericose vein surg to left lower leg; bladder susp; ll1 - Social history:: Patient/guardian denies using alcohol, street drugs, tobacco products. Screenin:48 Abuse screen: Denies threats or abuse. Denies injuries from another. Nutritional ph screening: No deficits noted. Tuberculosis screening: No symptoms or risk factors identified. Fall Risk None identified. Assessment: 15:45 General: Appears in no apparent distress. uncomfortable, well groomed, Behavior is ph cooperative, appropriate for age, anxious, Denies fever, feeling ill. Pain: Complains of pain in left gluteus melecio Pain radiates to left leg. Neuro: Level of Consciousness is awake, alert, obeys commands, Oriented to person, place, time, situation. Cardiovascular: Capillary refill < 3 seconds in bilateral fingers Patient's skin is warm and dry. Respiratory: Airway is patent Respiratory effort is even, unlabored, Respiratory pattern is regular, symmetrical. Derm: Skin is intact, is healthy with good turgor, Skin is pink, warm \\T\\ dry. Musculoskeletal: Circulation, motion, and sensation intact. Range of motion: intact in all extremities. 17:00 Reassessment: Patient appears in no apparent distress at this time. Patient and/or vc family updated on plan of care and expected duration. Pain level reassessed. Patient is alert, oriented x 3, equal unlabored respirations, skin warm/dry/pink. 17:56 Reassessment: Patient appears in no apparent distress at this time. Patient and/or vc family updated on plan of care and expected duration. Pain level reassessed. Patient is alert, oriented x 3, equal unlabored respirations, skin warm/dry/pink. Patient states feeling better. Patient states symptoms have improved. Vital Signs: 14:54 BP 223 / 101; Pulse 66; Resp 17; Temp 98.5; Pulse Ox 100% ; Pain 10/10; ll1 16:00 BP 172 / 82; Pulse 64; Resp 18; Pulse Ox 99% on R/A; vc 17:22 BP 186 / 84; Resp 18; Pulse Ox 97% ; vc ED Course: 14:41 Patient arrived in ED. am2 14:41 Ignacia Cooper MD is Private Physician. am2 14:42 Miley Wheeler, JANNA is Primary Nurse. ph 14:56 Triage completed. ll1 14:57 Arm band placed on Patient placed in an exam room, on a stretcher. ll1 15:05 Devin Saldaña NP is PHCP. pm1 15:05 Nolan Fuentes MD is Attending Physician. pm1 15:49 No provider procedures requiring assistance completed. Patient did not have IV access ph during this emergency room visit. 15:50 Patient has correct armband on for positive identification. Bed in low position. Call ph light in reach. Side rails up X 1. Pulse ox on. NIBP on. Door closed. Warm blanket given. Administered Medications: 15:43 Drug: fentaNYL (PF) 25 mcg Route: IM; Site: left vastus lateralis; ph 16:50 Follow up: Response: No adverse reaction; Pain is decreased vc 15:44 Drug: Lidoderm 5 % (700 mg/patch) 1 patches {Note: Left buttocks.} Route: Topical; ph Site: affected area; 15:45 Drug: Ondansetron (Zofran) 4 mg Route: PO; ph 16:50 Follow up: Response: No adverse reaction vc 17:41 Drug: SOLU-Medrol 125 mg Route: IM; Site: right ventrogluteal; vc Outcome: 17:19 Discharge ordered by MD. pm1 17:55 Discharged to home via wheelchair. vc 17:55 Condition: improved 17:55 Discharge instructions given to patient, Instructed on discharge instructions, follow up and referral plans. medication usage, Demonstrated understanding of instructions, follow-up care, medications, Prescriptions given X 2. 17:56 Patient left the ED. vc Signatures: Miley Wheeler, RN RN ph Devin Saldaña, MARCELLE MARKETING INFORMATION COORDINATOR pm1 Barbra Tinajero am2 Zelda Jewell RN RN vc Gen Hancock RN RN ll1
--- NOTE | 2019-12-22 17:20 | EDPHYS ---
Physician Documentation [facility] [place], [place] Name: Rosario Randhawa Age: 74 yrs Sex: Female : 1945 Arrival Date: 12/22/2019 Time: 14:41 Bed 19 Private MD: Ignacia Cooper C ED Physician Nolan Fuentes HPI: 12/21 15:17 This 74 yrs old Female presents to ER via Wheelchair with complaints of Low pm1 Back Pain. 15:17 The patient presents with pain Pain onset 1 month ago that started with right shoulder pm1 and right elbow. She had redness to the right elbow that was treated with antibiotics. Her right elbow redness and pain has resolved but she still has some right shoulder pain. Right shoulder x-ray with bone spur. About 1-2 weeks ago she started having some left hip pain with radiation to left foot. No trauma or injury. She had a X-ray of her left hip 1 week ago and was at the imaging center for an outpatient x-ray of her back and sacroiliac joints. She was not able to tolerate lying down on the x-ray table and sent to the ER for treatment and evaluation. Historical: - Allergies: 14:57 "sensitive to anything that makes some drowsy"; ll1 - PMHx: 14:57 High Cholesterol; Hypertension; Arthritis; ll1 - PSHx: 14:57 vericose vein surg to left lower leg; bladder susp; ll1 - Social history:: Patient/guardian denies using alcohol, street drugs, tobacco products. ROS: 15:17 Constitutional: Negative for fever, chills, and weight loss, Neck: Negative for injury, pm1 pain, and swelling, Cardiovascular: Negative for chest pain, palpitations, and edema, Respiratory: Negative for shortness of breath, cough, wheezing, and pleuritic chest pain, Abdomen/GI: Negative for abdominal pain, nausea, vomiting, diarrhea, and constipation, Back: Negative for injury and pain. 15:17 Skin: Negative for injury, rash, and discoloration, Neuro: Negative for headache, weakness, numbness, tingling, and seizure. 15:17 MS/extremity: Positive for pain, of the left gluteus melecio, Positive for mild pain of the the right shoulder, Negative for injury or acute deformity, decreased range of motion, deformity. Exam: 15:17 Constitutional: This is a well developed, well nourished patient who is awake, alert, pm1 and in no acute distress. Head/Face: Normocephalic, atraumatic. 15:17 Chest/axilla: Normal chest wall appearance and motion. Nontender with no deformity. No lesions are appreciated. 15:17 Back: No spinal tenderness. No costovertebral tenderness. Full range of motion. Skin: Warm, dry with normal turgor. Normal color with no rashes, no lesions, and no evidence of cellulitis. 15:17 Neck: Exam negative for acute changes, External neck: is normal, C-spine: no acute changes, vertebral tenderness, is not appreciated, ROM/movement: is normal. 15:17 Cardiovascular: Exam negative for acute changes, Rate: normal, Pulses: no pulse deficits are appreciated, Edema: is not appreciated. 15:17 Respiratory: Exam negative for acute changes, chest tenderness, respiratory distress, shortness of breath. 15:17 Abdomen/GI: Exam negative for acute changes, Inspection: abdomen appears normal, Palpation: abdomen is soft and non-tender, mass, is not appreciated, rebound tenderness, is not appreciated. 15:17 Musculoskeletal/extremity: Extremities: grossly normal except: noted in the left gluteus melecio: tenderness, There is no evidence of decreased ROM, deformity, rash, swelling, Circulation is intact in all extremities. Pulses: noted to be 2+ in the left dorsalis pedis artery, the left leg Sensation intact. Vital Signs: 14:54 BP 223 / 101; Pulse 66; Resp 17; Temp 98.5; Pulse Ox 100% ; Pain 10/10; ll1 16:00 BP 172 / 82; Pulse 64; Resp 18; Pulse Ox 99% on R/A; vc 17:22 BP 186 / 84; Resp 18; Pulse Ox 97% ; vc MDM: 15:06 Patient medically screened. pm1 15:17 Data reviewed: vital signs. Data interpreted: Pulse oximetry: on room air is 100 %. pm1 Interpretation: normal. 15:23 ED course: x-ray tech informed me that the patient has outpatient lumbar spine and pm1 sacroiliac joint X-rays ordered. I will medicate the patient for her pain so that she can tolerate x-rays. Patient had hip x-ray on 12/15. x-ray results showed no acute or significant findings with degenerative changes in the left SI joint similar to the partial imaged right SI joint. Patient was told that she likely has sciatic pain based on her prior x-rays and had follow up x-rays today. 17:11 Counseling: I had a detailed discussion with the patient and/or guardian regarding: the pm1 historical points, exam findings, and any diagnostic results supporting the discharge/admit diagnosis, the need for outpatient follow up, with her PCP. Patient was able to tolerate x-ray with medications given in the ER and she says that she is ready to go home. Informed her that I do not have the x-ray results from the radiologist yet. She said that she just came her for x-rays and is ready to go home because her ride is outside. She is starting a steroid pack tomorrow prescribed by her PCP. I offered her steroid IM to provide her some relief until tomorrow and to load the medication. I also offered her pain medication prescriptions, Lidoderm, Tylenol #3, and/or tramadol and she refused. 17:32 Counseling: I had a detailed discussion with the patient and/or guardian regarding: pm1 radiology results, Discussed degenerative changes on x-ray interpretation per radiologist and follow up MRI as needed with PCP. Administered Medications: 15:43 Drug: fentaNYL (PF) 25 mcg Route: IM; Site: left vastus lateralis; ph 16:50 Follow up: Response: No adverse reaction; Pain is decreased vc 15:44 Drug: Lidoderm 5 % (700 mg/patch) 1 patches {Note: Left buttocks.} Route: Topical; ph Site: affected area; 15:45 Drug: Ondansetron (Zofran) 4 mg Route: PO; ph 16:50 Follow up: Response: No adverse reaction vc 17:41 Drug: SOLU-Medrol 125 mg Route: IM; Site: right ventrogluteal; vc Disposition: 18:01 Co-signature as Attending Physician, Nolan Fuentes MD. rn Disposition: 12/22/19 17:19 Discharged to Home. Impression: Lumbago with sciatica, left side. - Condition is Stable. - Discharge Instructions: Back Pain, Adult, Sciatica. - Prescriptions for Tramadol 50 mg Oral Tablet - take 1 tablet by ORAL route every 8 hours As needed as needed; 12 tablet. Lidoderm 5 % Topical adhesive patch,medicated - apply 1 patch by TRANSDERMAL route once daily As needed; 14 Transdermal Patch. - Medication Reconciliation Form, Thank You Letter, Antibiotic Education, Prescription Opioid Use form. - Follow up: Emergency Department; When: As needed; Reason: Worsening of condition. Follow up: Private Physician; When: 2 - 3 days; Reason: Recheck today's complaints, Continuance of care, Re-evaluation by your physician. - Problem is new. - Symptoms have improved. Signatures: Nolan Fuentes MD MD rn Miley Wheeler RN RN ph Devin Saldaña, IN[employer] INTERNS[employer]IP INCLUSION INTERNSHIP pm1 Zelda Jewell RN RN vc Gen Hancock RN RN ll1 Corrections: (The following items were deleted from the chart) 17:56 17:19 12/22/2019 17:19 Discharged to Home. Impression: Lumbago with sciatica, left vc side. Condition is Stable. Forms are Medication Reconciliation Form, Thank You Letter, Antibiotic Education, Prescription Opioid Use. Follow up: Emergency Department; When: As needed; Reason: Worsening of condition. Follow up: Private Physician; When: 2 - 3 days; Reason: Recheck today's complaints, Continuance of care, Re-evaluation by your physician. Problem is new. Symptoms have improved. pm1
[2019-12-22] MEDS ORDERED: METHYLPREDNISOLONE 125 MG INJ ONE (17:31)
[2019-12-22 18:08] VITALS: TEMP 98.5
[2019-12-22 18:11] VITALS: BP 186/84; O2SAT 97
== END 2019-12-22 17:56 | disposition home or self-care (01) ==
LOC: ER 14:40
DX: M54.42 Lumbago with sciatica, left side (principal); I10 Essential (primary) hypertension
CPT/HCPCS: J3010; J2930; 96372; 99283

== ENCOUNTER 2020-03-27 11:38 | Emergency (ER) | payer OTHER ==
--- OUTSIDE RECORDS SUMMARY | 2020-03-27 11:39 | XMS REPORT | Clinical Summary ---
:1945 Author Organization [facility] Address [address] [place] [address] Care Team Providers Name Role Phone MD Dipti Primary Care Provider Allergies Active Allergy Reactions Severity Noted Date Comments Ezetimibe Other (See Comments) 01/20/2016 Body ac hes, dizziness Neuromuscular Blockers, Other (See Comments) 6 Patient not sure why Steroidal this is here Loss of appetit e, anxious, dperes virgilio Medications Medication Sig Dispensed Refills Start Date End Date Status atorvastatin (LIPITOR) TAKE 1 TABLET 90 tablet 1 10/20/2016 Active 10 MG tablet EVERY DAY acetaminophen Take 500 mg by 0 A ctive (TYLENOL) 500 MG mouth as needed tablet for mild pain. Takes one tab po a few times a week. aspirin (ECOTRIN) 81 Take 81 mg by 0 Active MG enteric coated mouth daily. tablet naproxen sodium Take 220 mg by 0 Active (ALEVE) 220 MG tablet mouth as needed (As needed for arthritis pain). atorvastatin (LIPITOR) TAKE 1 TABLET BY 90 tablet 2 11/01/2017 Active 10 MG tablet MOUTH EVERY NIGHT losartan (COZAAR) 50 TAKE 1 TABLET 90 tablet 1 02/05/2018 Active MG tablet EVERY DAY Active Problems Problem Noted Date Acute deep vein thrombosis (DVT) of proximal vein of l eft lower extremity 01/19/2017 Overview: Following varicose vein stripping in 09/21 017. Complicated by PE. Treated for 3 months with Xarelto Primary osteoarthritis involving multiple joints 01/19 Pulmonary embolism 09/28/2016 Vitamin D deficiency 03/07/2016 Varicose veins of both lower extremities 03/07/2016 Osteopenia 03/07/2016 Knee pain 03/07/2016 HLD (hyperlipidemia) 03/07/2016 Bilateral hearing loss 03/07/2016 Overview: Severe hearing loss, wears right sided h earing aide but relies heavily on lip reading Essential hypertension 03/07/2016 Impaired fasting glucose 03/07/2016 Family History Medical History Relation Name Comments Heart failure Mother Other Mother PACEMAKER; condu ction disorder of the heart Hypertension Other essential hypert ension Relation Name Status Comments Mother Other Social History Tobacco Use Types Packs/Day Years Used Date Never Smoker Alcohol Use Drinks/Week oz/Week Comments No Sex Assigned at Date Recorded Not on file Job Start Date Occupation Industry Not on file Not on file Not on file Travel History Travel Start Travel End No recent travel history available. Last Filed Vital Signs Not on file Plan of Treatment Health Maintenance Due Date Last Done Comments SHINGLES VACCINES (#1) 1993 65+ PNEUMOCOCCAL VACCINE (1 of 2 - PCV13) 2008 DXA SCAN 08/10/2017 08/10/2015 COLONOSCOPY SCREENING Discontinued INFLUENZA VACCINE Discontinued Results Not on fileafter 03/27/2019 Insurance Payer Benefit Plan / Subscriber ID Effective Dates Phone Addre ss Type Group MEDICARE MEDICARE PART A AND xxxxxxxxxx 2008-Pres[employer] [facility] [place] Medicare B t AETNA [facility] xxxxxxxxx 2000-[employer] Indemnity INDEMNITY t Advance Directives For more information, please contact: [phone] Type Date Recorded Patient De Icer Explanati on Advance Directives, Living Will and Medical Power of Farm Product Purchaser
--- OUTSIDE RECORDS SUMMARY | 2020-03-27 11:40 | XMS REPORT | Clinical Summary ---
:1945 Author Organization [facility] Address [address] [place] [address] Care Team Providers Name Role Phone Rosalee Resendez Primary Care Provider Unavailable Allergies No Known Allergies Medications Medication Sig Dispensed Refills Start Date End Date Status losartan (COZAAR) 50 MG Take 50 mg by 0 Active tablet mouth daily. atorvastatin (LIPITOR) Take 10 mg by 0 Active 10 MG tablet mouth daily. rivaroxaban (XARELTO) Take 1 tablet (20 60 tablet 0 10/06/2016 Active 20 mg Tab tablet mg total) by mouth daily. Active Problems Problem Noted Date Tachycardia 09/28/2016 SVT (supraventricular tachycardia) 09/28/2016 Varicose veins of bilateral lower extremities with oth er complications 09/28/2016 Acute pulmonary embolism 09/28/2016 Pulmonary embolism 09/28/2016 Social History Tobacco Use Types Packs/Day [...] Not on file Results Not on fileafter 03/27/2019 Insurance Payer Benefit Plan / Group Subscriber ID Type Phone A ddress MEDICARE MEDICARE A B xxxxxxxxxx Medicare AETNA - [employer] CARE AETNA INDEMNITY NON CONTR xxxxxxxxx Comm Advance Directives For more information, please contact:[place] [address] [place], [place] [phone] Code Status Date Activated Date Inactivated Comments Full Code 09/28/2016 5:51 AM 09/29/2016 6:27 PM This code status was determined by: Patient
--- OUTSIDE RECORDS SUMMARY | 2020-03-27 11:40 | XMS REPORT | Summary of Care ---
:1945 Author Organization [facility] Address [address] [place] [address] Care Team Providers Name Role Phone Pcp, Does Not Have A Primary Care Provider Ron Cooper Unavailable Reason for Referral Radiology Services (Routine) Status Reason Specialty Diagnoses / Referred By Referred To Procedures Contact Contact New Request Diagnostic Diagnoses Pain Flaco Matamoros Radiology Procedures XR KNEE 3 VW BILATERAL MD Maryan [address] [place] [address] Reason for Visit Reason Comments New Patient Knee Pain bilateral knee Shoulder Pain Encounter Details Date Type Department Care Team Description 01/26/2020 Office Visit [facility] Orthopaedic Flaco Matamoros , Pain (Primary Dx) Surgery- Joss PRUITT [address] [facility] [address] [place] [address] [place], [place] [phone] Allergies No Known Allergiesdocumented as of this encounter (statuses as of 01/30/2020) Medications Medication Sig Dispensed Refills Start Date End Date Status diclofenac 75 mg EC Take 1 tablet by 60 tablet 1 01/26/2020 Active tabletIndications: mouth 2 (two) Pain times daily with meals. documented as of this encounter (statuses as of 01/30/2020) Active Problems No known active problemsdocumented as of this encounter (statuses as of 01/30/2020) Social History Tobacco Use Types Packs/Day Years [...] six or more drinks on one occasion? No t asked Sex Assigned at Date Recorded Not on file Job Start Date Occupation Industry Not on file Not on file Not on file Travel History Travel Start Travel End No recent travel history available. documented as of this encounter Last Filed Vital Signs Vital Sign Reading Time Taken Comments Blood Pressure - - Pulse - - Temperature - - Respiratory Rate 20 01/26/2020 2:55 PM CDT Oxygen Saturation - - Inhaled Oxygen Concentration - - Weight 77.1 kg (170 lb) 01/26/2020 2:55 PM CDT Height 161.3 cm (5' 3.5") 01/26/2020 2:55 PM CDT Body Mass Index 29.64 01/26/2020 2:55 PM CDT documented in this encounter Progress Notes Flaco Matamoros MD - 01/26/2020 3:00 PM CDT Cc: Chief Complaint Patient presents with New Patient Knee Pain bilateral knee Shoulder Pain Rosario Da Silva is a 74 year old female. Knee Pain The incident occurred more than 1 week ago. The incident occurred at home. There was no injury mechanism. The pain is present in the left knee and right knee. The quality of the pain is described as aching. The pain is at a severity of 5/10. The pain is moderate. The pain has been intermittent since onset. Associated symptoms include numbness. The symptoms are aggravated by movement and weight bearing. She has tried non-weight bearing and ice for the symptoms. The treatment provided no relief. Shoulder Pain The pain is present in the left shoulder and right shoulder. This is a chronic problem. The current episode started more than 1 year ago. There has been no history of extremity trauma. The problem occurs daily. The problem has been waxing and waning. The quality of the pain is described as aching, dull and pounding. The pain is at a severity of 6/10. The pain is moderate. Associated symptoms include a limited range of motion and numbness. The symptoms are aggravated by activity. She has tried NSAIDSand movement for the symptoms. The treatment provided no relief. Allergies Rosario has No Known Allergies. Medications No outpatient medications prior to visit. No facility-administered medications prior to visit. Histories No past medical history on file. No past surgical history on file. Social History Socioeconomic History Marital status: Single Spouse name: Not on file Number of children: Not on file Years of education: Not on file Highest education level: Not on file Occupational History Not on file Social Needs Financial resource strain: Not on file Food insecurity: Worry: Not on file Inability: Not on file Transportation needs: Medical: Not on file Non-medical: Not on file Tobacco Use Smoking status: Not on file Substance and Sexual Activity Alcohol use: Not on file Drug use: Not on file Sexual activity: Not on file Lifestyle Physical activity: Days per week: Not on file Minutes per session: Not on file Stress: Not on file Relationships Social connections: Talks on phone: Not on file Gets together: Not on file Attends adventism service: Not on file Active member of club or organization: Not on file Attends meetings of clubs or organizations: Not on file Relationship status: Not on file Intimate partner violence: Fear of current or ex partner: Not on file Emotionally abused: Not on file Physically abused: Not on file Forced sexual activity: Not on file Other Topics Concern Not on file Social History Narrative Not on file No family history on file. Review of Systems Constitutional: Negative. HENT: Negative. Eyes: Negative. Respiratory: Negative. Breasts: Negative. Cardiovascular: Negative. Gastrointestinal: Negative. Genitourinary: Negative. Musculoskeletal: Positive for back pain, joint swelling and myalgias. Skin: Negative. Neurological: Positive for numbness. Psychiatric/Behavioral: Negative. Endocrine: Endocrine negative Vital Signs Resp 20 | Ht 5' 3.5" (1.613 m) | Wt 170 lb (77.1 kg) | BMI 29.64 kg/m Physical Exam Musculoskeletal: General: Well-developed well-nourished oriented to person place and time HEENT normocephalic atraumatic atraumatic pupils equal round reactive to light extraocular muscles intact Cervical thoracic and lumbar spine without focal deficit normal kyphosis and lordosis Chest clear to auscultation and percussion Cardiovascular regular rate and rhythm without gallop rub or murmur soft without organomegaly Normal bowel sounds Neurologic: Focal myotome or dermatomal deficits Vascular: Intact symmetrical bilateral upper and lower extremities Skin without stasis varicosities or breakdown Extremities without cyanosis clubbing or edema Lymphatics no peripheral lymphedema Psych normal mood and affect. Neurovascular function is intact. To include brisk capillary refill warm pink skin active motor function and sensory function intact. Nursing note and vitals reviewed. Assessment/Plan Multiple joint pain Patient's knee(s) is/are wearing out and will eventually need a total knee replacement but will takepreventative measures prior to discussing surgery. Will take this in a stepwise fashion first beginning with NSAIDs. Next would be a cortisone injection. A cortisone injection will only help with the inflammatory response. Cortisone injections will be given no less than 3 months in a 3 year time frame. Hymalecular weight hylaronic acid injection series would follow cortisone injections. If the response is well to the cortisone this is usually an indication of how one will respond to Hymalecular weight hylaronic injections. These injections are given once weekly to the affected knee for 3 weeks. This can give at least 6 months of relief in 3 out of 4 people. If these steps do not help the last option would be to have a total knee replacement. The Rehab department will reach out to discuss making an appointment for an informational session called Total Replacement Boot Camp. This does not mean you are ready for a total knee replacement, it's simply preparation should you eventually decide to have/need a joint replacement. Will prescribe diclofenac for overall pain documented in this encounter Plan of Treatment Health Maintenance Due Date Last Done Comments DTaP,Tdap,and Td Vaccines (1 - Tdap) 1954 Depression Screening 1955 Zoster Recombinant Vaccine (SHINGRIX) (1 of 2) 1993 Medicare Wellness Visit 2008 Osteoporosis Screening 2008 PNEUMOCOCCAL VACCINES 65+ (1 of 2 - PCV13) 2008 INFLUENZA VACCINE (Season Ended) 2020 documented as of this encounter Implants Implanted Type Area Assembler Installer General Device Shelf Model / Identifier Expiration Date Ser ial / Lot Lens, Landen #[id number] - [id number] LENS Right: Landen 07/19/2023 [id number] / Implanted: Qty: 1 on 03/27/2019 by Tommy Baptiste MD at [facility] Eye 1 [id number] / N/A documented as of this encounter Results XR KNEE 3 VW BILATERAL (01/26/2020 3:15 PM CDT) Specimen Narrative Performed At This result has an attachment that is no t available. Narrowed joint interval PACS Performing Organization Address City/State/Zipcode Phone Number PACS documented in this encounter Visit Diagnoses Diagnosis Pain - Primary Generalized pain documented in this encounter
--- OUTSIDE RECORDS SUMMARY | 2020-03-27 11:40 | XMS REPORT | Summary of Care ---
:1945 Author Organization [facility] Address [address] [place] [address] Care Team Providers Name Role Phone Pcp, Patient Does Not Have A Primary Care Provider +[id number] 0-0000 Encounter Details Date Type Department Care Team Description [facility]2020 [facility] [address] [place] [phone] Allergies No Known Allergiesdocumented as of this encounter (statuses as of 01/27/2020) Medications Medication Sig Dispensed Refills Start Date End Date Status diclofenac 75 mg EC Take 1 tablet by 60 tablet 1 01/26/2020 Active tabletIndications: mouth 2 (two) Pain times daily with meals. documented as of this encounter (statuses as of 01/27/2020) Active Problems Not on filedocumented as of this encounter (statuses as of 01/27/2020) Social History Tobacco Use Types Packs/Day Years Used Date Never Assessed Sex Assigned at Date Recorded Not on file Job Start Date Occupation Industry Not on file Not on file Not on file Travel History Travel Start Travel End No recent travel history available. documented as of this encounter Last Filed Vital Signs Not on filedocumented in this encounter Plan of Treatment Name Type Priority Associated Diagnoses Date/Ti me XR KNEE 3 VW BILATERAL IMAGING Routine Pain 01/25 3:15 PM CDT Name Type Priority Associated Diagnoses Order S chedule XR KNEE 3 VW BILATERAL IMAGING Routine Pain 1 Occ urrences starting 01/26/2020 unti l 01/26/2020 Health Maintenance Due Date Last Done Comments DTaP,Tdap,and Td Vaccines (1 - Tdap) 1954 Depression Screening 1955 Zoster Recombinant Vaccine (SHINGRIX) (1 of 2) 1993 Medicare Wellness Visit 2008 Osteoporosis Screening 2008 PNEUMOCOCCAL VACCINES 65+ (1 of 2 - PCV13) 2008 INFLUENZA VACCINE (Season Ended) 2020 documented as of this encounter Results Not on filedocumented in this encounter Visit Diagnoses Diagnosis Pain Generalized pain documented in this encounter
--- OUTSIDE RECORDS SUMMARY | 2020-03-27 11:40 | XMS REPORT | Continuity of Care Document ---
:1945 Author Organization [facility] t Address [address] [place] [address] Care Team Providers Name Role Phone Keara Resendez Primary Care Physician Unavailable Shiloh PRUITT, L Attending Clinician Problems Condition Condition Condition Status Onset Resolution Last Treating Co mments Source Name Details Category Date Date Treatment Clinician Date Acute deep Acute deep Disease Active Overview : [place] vein vein 01-19 Following [facility] thrombosis thrombosis 00:00: varicose st (DVT) of (DVT) of 00 vein proximal proximal stripping vein of vein of in left lower left lower 09/2016. extremity extremity Complicat ed by PE. 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 01-19 Me thodi itis itis 00:00: st involving involving 00 multiple multiple joints joints Tachycardi Tachycardi Disease Active [facility] SVT SVT Disease Active [facility]supravent 09-28 Claudette kes - ricular ricular 00:00: Medical tachycardi tachycardi 00 Ce nter a) a) Varicose Varicose Disease [facility] - bilateral bilateral 00:00: Medi aram lower lower 00 Center extremitie extremitie s with s with other other complicati complicati ons ons Acute Acute Disease Active [facility] pulmonary pulmonary 09-28 [facility] - embolism embolism 00:00: Medica l 00 Center Pulmonary Pulmonary Disease Active [facility] embolism embolism 09-28 [facility] i 00:00: st 00 Vitamin D Vitamin D Disease Active [facility] deficiency deficiency 03-07 Me thodi 00:00: st 00 Varicose Varicose Disease Active [place] veins of veins of 03-07 [facility] i both lower both lower 00:00: st [facility] 00 s s Osteopenia Osteopenia Disease Active [place] 03-07 [facility] 00:00: st 00 Knee pain Knee pain Disease Active [facility] 03-07 [facility] 00:00: st 00 HLD HLD Disease Active [place] (hyperlipi (hyperlipi 03-07 Me thodi demia) demia) 00:00: st 00 Bilateral Bilateral Disease Active Overview: [place] hearing hearing 03-07 Severe [facility] loss loss 00:00: hearing st 00 loss, wears right sided hearing aide but relies heavily on lip reading Essential Essential Disease Active [facility] hypertensi hypertensi 03-07 Me thodi on on 00:00: st 00 Impaired Impaired Disease Active [place] fasting fasting 03-07 [facility] glucose glucose 00:00: st 00 Allergies, Adverse Reactions, Alerts Allergy Allergy Status Severity Reaction(s) Onset Inactive Treating Comm ents Source Name Type Date Date Clinician Ezetimib Propensi Active Other (See Body [place] e ty to Comments) 01-19 aches, [facility] adverse 00:00: dizziness st reaction 00 s to drug Neuromus Propensi Active Other (See Patient H hernan cular ty to Comments) 6 not sure Metho di Blockers adverse 00:00: why this st , reaction 00 is Steroida s to hereLoss l drug of appetite, anxious, dperessio n Family History Family Member Diagnosis Comments Start Date Stop Date Source Natural mother Heart failure [place] [facility] Natural mother Other [facility] thodist Other Hypertension [place] Meth odist Social History Social Habit Start Date Stop Date Quantity Comments Source Sex Assigned At [facility] ethodist Alcohol intake 2017-04-30 2017-04-30 Current [facility] thodist 00:00:00 00:00:00 non-drinker of alcohol (finding) Smoking Status Start Date Stop Date Source Never smoker [place] Methodis t Medications Ordered Filled Start Stop Current Ordering Indication Dosage Frequency Signature Comments Components Source Medication Medication Date Date Medication? Clinician (SIG) Name Name losartan Yes TAKE 1 [place] (COZAAR) 50 6-19 TABLET Method i MG tablet 00:00: EVERY DAY st 00 atorvastati Yes TAKE 1 [place] (LIPITOR) 3-15 TABLET BY Met hodi 10 MG 00:00: MOUTH st tablet 00 EVERY NIGHT naproxen Yes 220mg Take 220 [place] sodium 9-11 mg by [facility] (ALEVE) 220 10:08: mouth as st MG tablet 23 needed (As needed for arthritis pain). acetaminoph Yes 500mg Take 500 [place] en 9-11 mg by [facility] (TYLENOL) 10:07: mouth as st 500 MG 06 needed for tablet mild pain. Takes one tab po a few times a week. aspirin Yes 81mg QD Take 81 mg [place] (ECOTRIN) 9-11 by mouth Method i 81 MG 10:07: daily. st enteric 06 coated tablet atorvastati Yes TAKE 1 [place] (LIPITOR) 3-03 TABLET Method i 10 MG 00:00: EVERY DAY st tablet 00 rivaroxaban Yes 20mg QD Take [address] (XARELTO) 2-17 tablet (20 [facility] - 20 mg Tab 00:00: mg total) Med ical tablet 00 by mouth Center daily. atorvastati Yes 10mg QD Take [address] n (LIPITOR) 2-09 by mouth [facility] - 10 MG 04:38: daily. Medical tablet 24 Center losartan Yes 50mg QD Take [address] (COZAAR) 50 2-09 by mouth Luke [facility] - MG tablet 04:38: daily. Medica l 23 Center Procedures This patient has no known procedures. Plan of Care Planned Activity Planned Date Details Comments Source Future Scheduled 2017-08-10 DXA SCAN [code = DXA [facility] petersencristi Kimble Test 00:00:00 SCAN] Future Scheduled 2008 65+ PNEUMOCOCCAL [place] [facility] Test 00:00:00 VACCINE (1 of 2 - PCV13) [code = 65+ PNEUMOCOCCAL VACCINE (1 of 2 - PCV13)] Future Scheduled 1993 SHINGLES VACCINES (#1) [facility]ast[facility] Test 00:00:00 [code = SHINGLES VACCINES (#1)] Encounters Start End Encounter Admission Attending Care Care Encounter Source Date/Time Date/Time Type Type Clinicians Facility Department ID 2020-03-19 2020-03-19 Refill [facility] [id number] 00:00:00 00:00:00 [facility] [id number] Surgical [id number] Specialti [id number] es [address] [place] 2020-01-26 2020-01-26 [facility] [id number] 15:14:00 23:59:00 Encounter Flaco [facility] [id number] Surgical [id number] Specialti [id number] es 809 [place] 2020-01-26 2020-01-26 Office [facility] [id number] 14:48:16 15:42:05 Visit Flaco [facility] [id number] Surgical [id number] Specialti [id number] es [address] [place] Results This patient has no known results.
--- OUTSIDE RECORDS SUMMARY | 2020-03-27 11:41 | XMS REPORT | Summary of Care ---
:1945 Author Organization [facility] Address [address] [place] [address] Care Team Providers Name Role Phone Pcp, Does Not Have A Primary Care Provider Ron Cooper Unavailable Reason for Visit Reason Comments Refill Request Encounter Details Date Type Department Care Team Description 03/19/2020 Refill [facility] Orthopaedic Flaco Matamoros MD Refill Request Surgery- [place] [address] [facility], [address] [place] [address] [place] [address] [place] [address] [phone] Allergies No Known Allergiesdocumented as of this encounter (statuses as of 03/22/2020) Medications Medication Sig Dispensed Refills Start Date End Date Status losartan 100 mg Take 100 mg by 0 Active tablet mouth daily. DICLOFENAC 75 mg TAKE 1 TABLET 60 tablet 1 03/22/2020 Active EC BY MOUTH TWICE tabletIndications: A DAY WITH Pain MEALS diclofenac 75 mg Take 1 tablet 60 tablet 1 01/26/2020 03/22/20 20 Discontinued EC by mouth 2 tabletIndications: (two) times Pain daily with meals. documented as of this encounter (statuses as of 03/22/2020) Active Problems No known active problemsdocumented as of this encounter (statuses as of 03/22/2020) Social History Tobacco Use Types Packs/Day Years [...] Assigned at Date Recorded Not on file documented as of this encounter Last Filed Vital Signs Not on filedocumented in this encounter Plan of Treatment Health Maintenance Due Date Last Done Comments DTaP,Tdap,and Td Vaccines (1 - Tdap) 1954 Depression Screening 1955 Zoster Recombinant Vaccine (SHINGRIX) (1 of 2) 1993 Medicare Wellness Visit 2008 Osteoporosis Screening 2008 PNEUMOCOCCAL VACCINES 65+ (1 of 2 - PCV13) 2008 INFLUENZA VACCINE (#1) 2020 documented as of this encounter Implants Implanted Type Area Hose Stripper Device Shelf Model / Identifier Expiration Date Ser ial / Lot Lens, Landen #[id number] - [id number] LENS Right: Landen 07/19/2023 [id number] / Implanted: Qty: 1 on 03/27/2019 by Tommy Baptiste MD at [facility] Eye 1 [id number] / N/A documented as of this encounter Results Not on filedocumented in this encounter Visit Diagnoses Diagnosis Pain Generalized pain documented in this encounter Insurance Payer Benefit Plan / Subscriber ID Effective Dates Phone Addre ss Type Group MEDICARE MEDICARE PART A [id number] 2008-Rakesh [phone] [place] [place] [place] Medicare & B t 82 [id number] KAYLA HIDALGO [phone] AETNA AETNA INDEMNITY [id number] 2013-Rakesh Indemnity t documented as of this encounter
--- OUTSIDE RECORDS SUMMARY | 2020-03-27 11:41 | XMS REPORT | Summary of Care ---
:1945 Author Organization [facility] Address [address] [place] [address] Care Team Providers Name Role Phone Pcp, Does Not Have A Primary Care Provider Ron Cooper Unavailable Reason for Referral Radiology Services (Routine) Status Reason Specialty Diagnoses / Referred By Referred To Procedures Contact Contact New Request Diagnostic Diagnoses Pain Flaco Matamoros Radiology Procedures XR KNEE 3 VW BILATERAL MD Maryan [address] [place] [address] Reason for Visit Reason Comments New Patient Knee Pain bilateral knee Shoulder Pain Encounter Details Date Type Department Care Team Description 01/26/2020 Office Visit [facility] Orthopaedic Flaco Matamoros , Pain (Primary Dx) Surgery- Joss PRUITT [address] [facility] [address] [place] [address]36 [place], [place] [phone] Allergies No Known Allergiesdocumented as of [...] file Gets together: Not on file Attends worship service: Not on file Active member of [...] of this encounter Implants Implanted Type Area Mortician Supplies Sales Representative Device Shelf Model / Identifier Expiration Date Ser ial / Lot Lens, Landen #[id number] - [id number] LENS Right: Landen 07/19/2023 [id number] / Implanted: Qty: 1 on 03/27/2019 by Tommy Baptiste MD at [facility] Eye 1 [id number] / N/A documented as of this [...]
[2020-03-27] MEDS ORDERED: FENTANYL CITR 100 MCG/2 ML ONE (12:23)
[2020-03-27] MEDS ORDERED: dexAMETHasone 10 MG/ML VIAL ONE (12:23)
--- NOTE | 2020-03-27 13:02 | EDPHYS ---
Physician Documentation [facility] Name: Rosario Randhawa Age: 74 yrs Sex: Female : 1945 Arrival Date: 03/27/2020 Time: 11:40 Bed 16 Private MD: Ignacia Cooper C ED Physician Nolan Fuentes HPI: 03/27 12:11 This 74 yrs old Female presents to ER via Unassigned with complaints of Hip rn Pain. 12:11 The patient or guardian reports pain. that occurred at an unknown site, sustained from rn unknown reason, The patient is able to self ambulate. The patient is able to bear their full body weight. The patient's discomfort radiates to the left leg. The complaints affect the left hip.low back. Onset: The symptoms/episode began/occurred at an unknown time. Modifying factors: The symptoms are alleviated by remaining still, the symptoms are aggravated by any movement. Severity of symptoms: At their worst the symptoms were mild, in the emergency department the symptoms are unchanged. The patient has experienced similar episodes in the past. Reports chronic sciatica pain, no recent injury or fall, reports identical pain as before with left hip/back pain radiating down left leg. No bowel/bladder problems. No weakness of leg. Reports came in last time and a shot improved. Taking diclofenac and no longer helping. Has appt with her pcp this week for assisted management of medication. . Historical: - Allergies: 12:58 "sensitive to anything that makes some drowsy"; ks7 - Home Meds: 12:58 atorvastatin 10 mg Oral tab 1 tab once daily [Active]; losartan 100 mg Oral tab 1 tab ks7 once daily [Active]; - PMHx: 12:58 Arthritis; High Cholesterol; Hypertension; ks7 - Immunization history:: Adult Immunizations up to date. - Social history:: Smoking status: Patient denies any tobacco usage or history of. - Family history:: not pertinent. - Hospitalizations: : No recent hospitalization is reported. ROS: 12:11 Constitutional: Negative for fever, chills, and weight loss, Eyes: Negative for injury, rn pain, redness, and discharge, Cardiovascular: Negative for chest pain, palpitations, and edema, Respiratory: Negative for shortness of breath, cough, wheezing, and pleuritic chest pain, Abdomen/GI: Negative for abdominal pain, nausea, vomiting, diarrhea, and constipation, Back: + left lower back pain : Negative for injury, bleeding, discharge, and swelling, MS/Extremity: Negative for injury and deformity, Skin: Negative for injury, rash, and discoloration, Neuro: Negative for headache, weakness, and seizure. Exam: 12:11 Constitutional: This is a well developed, well nourished patient who is awake, alert, rn and in no acute distress. Cardiovascular: Regular rate and rhythm. No pulse deficits. Respiratory: No increased work of breathing, no retractions or nasal flaring. Abdomen/GI: soft, non-tender Back: No spinal tenderness. Skin: Warm, dry, no cellulitis MS/ Extremity: Pulses equal, no cyanosis. Neuro: Awake and alert, GCS 15, oriented to person, place, time, and situation. Cranial nerves II-XII grossly intact. Motor strength 5/5 in all extremities. Sensory grossly intact. Vital Signs: 12:58 BP 149 / 85; Pulse 66; Resp 18; Temp 98.3(O); Pulse Ox 95% ; Pain 6/10; ks7 13:12 Pulse Ox 100% ; Pain 6/10; ks7 13:12 Pulse Ox 100% ; Pain 6/10; ks7 MDM: 11:49 Patient medically screened. rn 13:01 Differential diagnosis: arthritis, strain, sciatica, radiculopathy. Data reviewed: rn vital signs, nurses notes, old medical records, and as a result, I will discharge patient. Counseling: I had a detailed discussion with the patient and/or guardian regarding: the historical points, exam findings, and any diagnostic results supporting the discharge/admit diagnosis, the need for outpatient follow up, to return to the emergency department if symptoms worsen or persist or if there are any questions or concerns that arise at home. Response to treatment: the patient's symptoms have mildly improved after treatment, and as a result, I will discharge patient. Special discussion: I discussed with the patient/guardian in detail that at this point there is no indication for admission to the hospital. It is understood, however, that if the symptoms persist or worsen the patient needs to return immediately for re-evaluation. 03/27 12:06 Order name: IV Start; Complete Time: 12:15 rn Administered Medications: 12:20 Drug: Decadron - Dexamethasone 10 mg Route: IVP; Site: left antecubital; 13:12 Follow up: Pulse Ox 100% ; Pain 6/10 Adult ks7 12:20 Drug: fentaNYL (PF) 25 mcg Route: IVP; Site: left antecubital; 13:12 Follow up: Pulse Ox 100% ; Pain 6/10 Adult ks7 Disposition: 03/27/20 13:02 Discharged to Home. Impression: Radiculopathy, lumbosacral region. - Condition is Stable. - Discharge Instructions: Lumbosacral Radiculopathy. - Prescriptions for Ultram 50 mg Oral Tablet - take 1 tablet by ORAL route every 6 hours As needed; 12 tablet. Medrol (Antwan) 4 mg Oral Tablets, Dose Pack - take 1 tablet by ORAL route as directed - follow package instructions; 1 packet. - Medication Reconciliation Form, Thank You Letter, Antibiotic Education, Prescription Opioid Use form. - Follow up: Private Physician; When: As needed; Reason: Recheck today's complaints, Re-evaluation by your physician. - Problem is chronic. - Symptoms have improved. Signatures: Nolan Fuentes MD MD rn Harris, Amy RN JANNA Shannon Craft RN RN ks7 Corrections: (The following items were deleted from the chart) 13:26 13:02 03/27/2020 13:02 Discharged to Home. Impression: Radiculopathy, lumbosacral ks7 region. Condition is Stable. Forms are Medication Reconciliation Form, Thank You Letter, Antibiotic Education, Prescription Opioid Use. Follow up: Private Physician; When: As needed; Reason: Recheck today's complaints, Re-evaluation by your physician. Problem is chronic. Symptoms have improved. rn
--- NOTE | 2020-03-27 13:02 | ER ---
Nurse's Notes [facility] Name: Rosario Randhawa Age: 74 yrs Sex: Female : 1945 Arrival Date: 03/27/2020 Time: 11:40 Bed 16 Private MD: Ignacia Cooper C Diagnosis: Radiculopathy, lumbosacral region Presentation: 03/27 11:41 Acuity: JOSE 4 aa5 11:41 Initial Sepsis Screen: Does the patient meet any 2 criteria? No. Patient's initial aa5 sepsis screen is negative. Does the patient have a suspected source of infection? No. Patient's initial sepsis screen is negative. Risk Assessment: Do you want to hurt yourself or someone else? Patient reports no desire to harm self or others. Onset of symptoms. 11:41 Chief complaint: Patient states: Pt c/o left hip pain. aa5 11:41 Method Of Arrival: Wheelchair aa5 13:19 Coronavirus screen: Client denies travel out of the [place] in the last 14 days. At this ks7 time, the client does not indicate any symptoms associated with coronavirus-19. The client denies any previous COVID testing. Ebola Screen: Patient negative for fever greater than or equal to 101.5 degrees Fahrenheit, and additional compatible Ebola Virus Disease symptoms Patient denies exposure to infectious person. Patient denies travel to an Ebola-affected area in the 21 days before illness onset. Triage Assessment: 12:58 General: Appears in no apparent distress. uncomfortable, Behavior is calm, cooperative. ks7 Pain: Complains of pain in left hip. Historical: - Allergies: 12:58 "sensitive to anything that makes some drowsy"; ks7 - Home Meds: 12:58 atorvastatin 10 mg Oral tab 1 tab once daily [Active]; losartan 100 mg Oral tab 1 tab ks7 once daily [Active]; - PMHx: 12:58 Arthritis; High Cholesterol; Hypertension; ks7 - Immunization history:: Adult Immunizations up to date. - Social history:: Smoking status: Patient denies any tobacco usage or history of. - Family history:: not pertinent. - Hospitalizations: : No recent hospitalization is reported. Screenin:04 Abuse screen: Denies threats or abuse. Denies injuries from another. Nutritional ks7 screening: No deficits noted. Tuberculosis screening: No symptoms or risk factors identified. Fall Risk No fall in past 12 months (0 pts). Secondary diagnosis (15 points) IV access (20 points). Ambulatory Aid- Crutches/Cane/Walker (15 pts). Gait- Weak (10 pts.). Mental Status- Oriented to own ability (0 pts). Total Trevino Fall Scale indicates High Risk Score (45 or more points). Fall prevention measures have been instituted. Side Rails Up X 2 Placed Close to Nursing Station Frequent Obs/Assessments Occuring. Assessment: 13:04 General: Appears in no apparent distress. comfortable, Behavior is calm, cooperative. ks7 Pain: Complains of pain in L hip. Pain currently is 6 out of 10 on a pain scale. at worst was 10 out of 10 on a pain scale. Quality of pain is described as aching, sharp, Pain began gradually, Is continuous, Alleviated by medications, rest. Musculoskeletal: Reports pain in L hip pt has spinal arthritis, pain radiates to L hip. chronic pain but in the last 3 days pt has had increased pain and limited ROM. 10/10 pain on arrival. Vital Signs: 12:58 BP 149 / 85; Pulse 66; Resp 18; Temp 98.3(O); Pulse Ox 95% ; Pain 6/10; ks7 13:12 Pulse Ox 100% ; Pain 6/10; ks7 13:12 Pulse Ox 100% ; Pain 6/10; ks7 ED Course: 11:40 Patient arrived in ED. ag5 11:40 Ignacia Cooper MD is Private Physician. ag5 11:49 Nolan Fuentes MD is Attending Physician. rn 12:16 Inserted saline lock: 20 gauge in left antecubital area, using aseptic technique. dh4 12:53 Shannon Craft, JANNA is Primary Nurse. ks7 12:58 Arm band placed on right wrist. ks7 13:04 No provider procedures requiring assistance completed. ks7 13:04 Patient has correct armband on for positive identification. Bed in low position. Call ks7 light in reach. Side rails up X2. 13:18 Triage completed. aa5 13:18 Resting quietly. ks7 13:18 IV discontinued, intact, bleeding controlled, No redness/swelling at site. Pressure ks7 dressing applied. Administered Medications: 12:20 Drug: Decadron - Dexamethasone 10 mg Route: IVP; Site: left antecubital; 13:12 Follow up: Pulse Ox 100% ; Pain 6/10 Adult ks7 12:20 Drug: fentaNYL (PF) 25 mcg Route: IVP; Site: left antecubital; 13:12 Follow up: Pulse Ox 100% ; Pain 6/10 Adult ks7 Outcome: 13:02 Discharge ordered by . rn 13:18 Discharged to home ambulatory, with family. ks7 13:18 Condition: good 13:18 Discharge instructions given to patient, Instructed on discharge instructions, follow up and referral plans. medication usage, Demonstrated understanding of instructions, follow-up care, medications, Prescriptions given X 2. 13:26 Patient left the ED. ks7 Signatures: Nolan Fuentes MD MD rn Calderon, Audri RN RN aa5 [facility] Belinda Flowers RN RN Daniel Rico [facility] Shannon Craft RN RN ks7 Corrections: (The following items were deleted from the chart) 13:18 12:54 Chief complaint: Patient states: pt c/o hip pain ks7 aa5 13:18 12:54 Method Of Arrival: Wheelchair ks7 aa5 13:21 11:41 Chief complaint: Patient states: Pt c/o aa5 aa5
[2020-03-27 13:32] VITALS: BP 149/85; TEMP 98.3
[2020-03-27 13:33] VITALS: O2SAT 100
== END 2020-03-27 13:26 | disposition home or self-care (01) ==
LOC: ER 11:38
DX: M54.17 Radiculopathy, lumbosacral region (principal); I10 Essential (primary) hypertension; E78.00 Pure hypercholesterolemia, unspecified
CPT/HCPCS: 96375; 96374; 99283; J3010; J1100

== ENCOUNTER 2020-03-28 18:30 | Emergency (ER) | payer OTHER ==
--- OUTSIDE RECORDS SUMMARY | 2020-03-28 18:36 | XMS REPORT | Clinical Summary ---
:1945 Author Organization [facility] Address [address] [place] [address] Care Team Providers Name Role Phone Rosalee [...] Not on file Results Not on fileafter 03/28/2019 Insurance Payer Benefit Plan / Group Subscriber ID Type Phone A ddress MEDICARE MEDICARE A B xxxxxxxxxx Medicare AETNA - MGD CARE AETNA INDEMNITY NON CONTR xxxxxxxxx Comm Advance Directives For more information, please contact:[place] [address] [place], [place] [phone] Code Status Date Activated Date Inactivated Comments Full Code 09/28/2016 5:51 AM 09/29/2016 6:27 PM This code status was determined by: Patient
--- OUTSIDE RECORDS SUMMARY | 2020-03-28 18:36 | XMS REPORT | Continuity of Care Document ---
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 extremity extremity Complicat ed by PE. Treated for 3 months with Xarelto Primary Primary Disease Active [place] osteoarthr osteoarthr 01-19 Me thodi itis itis [...] i both lower both lower 00:00: [facility] s s Osteopenia Osteopenia Disease [place] 03[facility]07 [facility] 00:00: st 00 Knee pain Knee pain Disease Active [facility] 03-07 [facility] 00:00: st 00 HLD HLD Disease Active [place] (hyperlipi (hyperlipi 03-07 Me thodi demia) demia) 00:00: st 00 Bilateral Bilateral Disease Active Overview: [place] hearing hearing 03-07 Severe [facility] loss loss [...] Stop Date Source Natural mother Heart failure [place] [facility] Natural mother Other [facility] [place] [place] thodist Other Hypertension [place] Meth odist Social History Social Habit Start Date Stop Date Quantity Comments Source Sex Assigned At [facility] Alcohol intake 2017-04-30 2017-04-[address] [facility] [place] [place] thodist 00:00:00 00:00:00 non-drinker of alcohol (finding) Smoking Status Start Date Stop Date Source Never smoker [place] [facility] t Medications Ordered Filled Start Stop [...] 00:00:00 SCAN] Future Scheduled 2008 65+ PNEUMOCOCCAL [place] [facility] Test 00:00:00 VACCINE (1 of 2 - PCV13) [code = 65+ PNEUMOCOCCAL VACCINE (1 of 2 - PCV13)] Future Scheduled 1993 SHINGLES VACCINES (#1) [facility] Test 00:00:00 [code = SHINGLES VACCINES (#1)] Encounters Start End Encounter Admission Attending Care Care Encounter Source Date/Time Date/Time Type Type Clinicians Facility Department ID 2020-03-19 2020-03-19 Refill [facility] [id number] 00:00:00 00:00:00 [facility] [id number] Surgical [id number] Specialti [id number] es [address] [place] 2020-01-26 2020-01-26 [facility] [id number] 15:14:00 23:59:00 Encounter [facility] [id number] Surgical [id number] Specialti [id number] es [address] [place] 2020-01-26 2020-01-26 Office [facility] [id number] 14:48:16 15:42:05 Visit [facility] [id number] Surgical [id number] Specialti [id number] [address] [place] Results This patient has no known results.
--- OUTSIDE RECORDS SUMMARY | 2020-03-28 18:36 | XMS REPORT | Clinical Summary ---
:1945 Author Organization [facility] Address [address] [place] [address] Care Team Providers Name Role Phone MD [...] INFLUENZA VACCINE Discontinued Results Not on fileafter 03/28/2019 Insurance Payer Benefit Plan / Subscriber ID Effective Dates Phone Addre ss Type Group MEDICARE MEDICARE PART A AND xxxxxxxxxx 2008-[facility] [place] Medicare B t AETNA [facility]NA [facility] 2000-[facility] Indemnity INDEMNITY t Advance Directives For more information, please contact: [phone] Type Date Recorded Patient Survey Analyst Explanati on Advance Directives, Living Will and Medical Power of Public Opinion Survey Taker
[2020-03-28 20:10] LABS: Absolute Lymphocytes (CBC) 2.9 K/uL (0.7-4.9); Basophils % 0.3 % (0-1.3); MPV 8.7 fL (7.6-11.3); RBC Red Blood Cell Count 4.58 M/uL (3.86-4.86)
[2020-03-28] MEDS ORDERED: NA CHLORIDE 0.9% 1,000 ML ONE (20:17)
[2020-03-28] MEDS ORDERED: KETOROLAC 30 MG/ML INJ ONE (20:17)
[2020-03-28] MEDS ORDERED: dexAMETHasone 10 MG/ML VIAL ONE (20:17)
[2020-03-28 20:35] LABS: ALT/SGPT 53 U/L (12-78); AST/SGOT 24 U/L (15-37); Albumin 4.2 g/dL (3.4-5.0); Alkaline Phosphatase 67 U/L (45-117); BUN Blood Urea Nitrogen 16 mg/dL (7-18); Bicarbonate 25 mmol/L (21-32); Bilirubin Total 0.5 mg/dL (0.2-1.0); Glucose Level 85 mg/dL (74-106); Potassium 3.6 mmol/L (3.5-5.1); Protein, Total 7.2 g/dL (6.4-8.2); Sodium Level 143 mmol/L (136-145)
[2020-03-28 20:41] LABS: Urine Blood 1+ (NEG); Urine Glucose NEGATIVE (NEG); Urine Protein NEGATIVE (NEG); Urine pH 7.5 (5.0-7.0)
--- NOTE | 2020-03-28 21:18 | RAD REPORT ---
EXAM DESCRIPTION: CT - Spine Lumbar Wo Con - 03/28/2020 9:04 pm CLINICAL HISTORY: Radiculopathy. PAIN COMPARISON: Femur Left dated 03/28/2020 TECHNIQUE: Axial noncontrast CT imaging of the lumbar spine was performed with coronal and sagittal re-formatted images. All CT scans are performed using dose optimization technique as appropriate and may include automated exposure control or mA/KV adjustment according to patient size. FINDINGS: No acute lumbar spine fracture seen. No aggressive marrow pattern or malalignment. Paraspinal tissues are normal in thickness. No paraspinal abscess or hematoma seen. Multilevel degenerative spondylosis of the lumbar spine is present with posterior disc bulges and end plate osteophyte. Sacral ala appear intact. IMPRESSION: Moderate lumbar spondylosis is present without acute fracture or malalignment seen. Consider MRI follow-up for assessment of disc disease if clinically desired.
--- NOTE | 2020-03-28 21:19 | RAD REPORT ---
EXAM DESCRIPTION: RAD - Femur Left - 03/28/2020 9:09 pm CLINICAL HISTORY: PAIN COMPARISON: No comparisons FINDINGS: Mild osteoarthritic changes involve the left hip. No fracture, dislocation or AVN.
--- NOTE | 2020-03-28 21:20 | RAD REPORT ---
EXAM DESCRIPTION: CT - Pelvis Wo Cont - 03/28/2020 9:04 pm CLINICAL HISTORY: PAIN Left hip pain COMPARISON: No comparisons TECHNIQUE: All CT scans are performed using dose optimization technique as appropriate and may inclu de automated exposure control or mA/KV adjustment according to patient size. FINDINGS: Both sacral ala are intact. Mild osteoarthritic changes are present involving both hips wi thout evidence of acute fracture, dislocation or AVN. No soft tissue mass or hematoma. Prominent sigmoid diverticulosis coli without diverticulitis. IMPRESSION: No acute finding is evident.
--- NOTE | 2020-03-28 21:27 | ER ---
Nurse's Notes [facility] Name: Rosario Randhawa Age: 74 yrs Sex: Female : 1945 Arrival Date: 03/28/2020 Time: 18:36 Bed 15 Private MD: Diagnosis: Sciatica, left side;Low back pain;Spondylolysis, lumbar region;Urinary tract infection, site not specified Presentation: 03/28 19:30 Chief complaint: Patient's son or daughter states: Daughter states patient was here lp1 yesterday for left hip pain, no relief with Tramadol prescription given; Denies any fall or injury to L hip; States pain worse today and difficult to walk; daughter requesting to have imaging done this visit. Coronavirus screen: Client denies travel out of the [place] in the last 14 days. At this time, the client does not indicate any symptoms associated with coronavirus-19. Ebola Screen: No symptoms or risks identified at this time. Initial Sepsis Screen: Does the patient meet any 2 criteria? No. Patient's initial sepsis screen is negative. Does the patient have a suspected source of infection? No. Patient's initial sepsis screen is negative. Risk Assessment: Do you want to hurt yourself or someone else? Patient reports no desire to harm self or others. Onset of symptoms was March 28, 2020. 19:30 Method Of Arrival: Wheelchair lp1 19:30 Acuity: JOSE 4 lp1 19:32 Chief complaint: Patient states: L hip pain. L thigh pain. Coronavirus screen: Client ks7 denies travel out of the [place] in the last 14 days. At this time, the client does not indicate any symptoms associated with coronavirus-19. The client denies any previous COVID testing. Ebola Screen: Patient negative for fever greater than or equal to 101.5 degrees Fahrenheit, and additional compatible Ebola Virus Disease symptoms Patient denies exposure to infectious person. Patient denies travel to an Ebola-affected area in the 21 days before illness onset. Initial Sepsis Screen: Does the patient meet any 2 criteria? No. Patient's initial sepsis screen is negative. Does the patient have a suspected source of infection? No. Patient's initial sepsis screen is negative. Risk Assessment: Do you want to hurt yourself or someone else? Patient reports no desire to harm self or others. Onset of symptoms was March 26, 2020. 19:32 Acuity: JOSE 4 ks7 19:32 Acuity: JOSE 3 ks7 Triage Assessment: 19:32 General: Appears in no apparent distress. uncomfortable, Behavior is cooperative, ks7 anxious. Pain: Complains of pain in L hip Pain currently is 8 out of 10 on a pain scale. Quality of pain is described as sharp, gnawing, Pain began 2-3 days ago. Is continuous, Aggravated by increased activity. Musculoskeletal: Reports pain in L hip. pt has chronic pain. unable to sleep last night d/t pain. Historical: - Allergies: 19:33 "sensitive to anything that makes some drowsy"; lp1 - Home Meds: 19:33 atorvastatin 10 mg Oral tab 1 tab once daily [Active]; losartan 100 mg Oral tab 1 tab lp1 once daily [Active]; - PMHx: 19:33 Arthritis; High Cholesterol; Hypertension; lp1 - Immunization history:: Adult Immunizations up to date. - Social history:: Smoking status: Patient denies any tobacco usage or history of. - Family history:: not pertinent. Screenin:34 Abuse screen: Denies threats or abuse. Denies injuries from another. Nutritional lp1 screening: No deficits noted. Tuberculosis screening: No symptoms or risk factors identified. 19:37 Fall Risk No fall in past 12 months (0 pts). Secondary diagnosis (15 points) impaired ks7 mobility, No IV (0 pts). Ambulatory Aid- None/Bed Rest/Nurse Assist (0 pts). Gait- Weak (10 pts.). Mental Status- Oriented to own ability (0 pts). Total Trevino Fall Scale indicates Low Risk Score (25-44 pts). Fall prevention measures have been instituted. Side Rails Up X 2 Placed close to Nursing Station Frequent Obs/Assesments occuring As available Patient and Family Educated on Fall Prevention Program and strategies. Assessment: 19:37 General: Appears uncomfortable, Behavior is cooperative. Musculoskeletal: Reports pain ks7 in L hip, chronic. pain worse today states she is unable to walk. 20:30 Reassessment: daughter called in for an update. ks7 21:17 Reassessment: Patient and/or family updated on plan of care and expected duration. Pain ks7 level reassessed. Patient is alert, oriented x 3, equal unlabored respirations, skin warm/dry/pink. Patient states feeling better. Vital Signs: 19:30 BP 189 / 87; Pulse 60; Resp 18; Pulse Ox 100% on R/A; lp1 19:32 BP 188 / 94; Pulse 64; Resp 18; Pulse Ox 100% on R/A; Pain 8/10; ks7 19:47 BP 189 / 87; Pulse 58; Resp 18; Pulse Ox 98% on R/A; Pain 8/10; ks7 21:00 BP 178 / 85; Pulse 60; Resp 18; Pulse Ox 96% on R/A; Pain 3/10; ks7 21:17 BP 165 / 75; Pulse 58; Resp 18; Temp 98.1(O); Pulse Ox 96% on R/A; Pain 3/10; ks7 21:59 Pulse Ox 100% on R/A; Pain 3/10; ks7 21:59 Pulse Ox 100% on R/A; Pain 3/10; ks7 21:59 Pulse Ox 100% on R/A; Pain 3/10; ks7 ED Course: 18:36 Patient arrived in ED. as 19:19 Tao Coleman MD is Attending Physician. kandice 19:31 Shannon Craft, JANNA is Primary Nurse. ks7 19:32 Triage completed. lp1 19:32 Arm band placed on right wrist. lp1 19:37 Resting quietly. Awaiting for x-ray. ks7 19:37 Patient has correct armband on for positive identification. Bed in low position. Call ks7 light in reach. Side rails up X2. 19:37 No provider procedures requiring assistance completed. Patient did not have IV access ks7 during this emergency room visit. 20:00 Inserted saline lock: 22 gauge in left forearm, using aseptic technique. ks7 20:05 CBC with Diff Sent. ks7 20:05 Comprehensive Metabolic Panel Sent. ks7 20:28 Femur Left XRAY Sent. ks7 20:28 Pelvis XRAY Sent. ks7 20:28 Urine Culture Sent. ks7 20:[address] Patient moved to radiology via wheelchair. ks7 21:00 Patient moved back from CT. Patient moved back from radiology. ks7 21:27 Ignacia Cooper MD is Referral Physician. kandice 21:27 Flaco Forbes MD is Referral Physician. kandice 21:58 IV discontinued, intact, bleeding controlled, No redness/swelling at site. Pressure ks7 dressing applied. Administered Medications: Discontinued: NS 0.9% 1000 ml IV at 125 ml/hr continuous 20:18 Drug: NS 0.9% 1000 ml Route: IV; Rate: 125 ml/hr; Site: left forearm; ks7 20:20 Drug: TORadol 30 mg Route: IVP; Site: left femoral; ks7 21:59 Follow up: Pulse Ox 100% RA; Pain 3/10 Adult ks7 20:20 Drug: Decadron - Dexamethasone 10 mg Route: IVP; Site: left forearm; ks7 21:59 Follow up: Pulse Ox 100% RA; Pain 3/10 Adult ks7 21:35 Drug: Rocephin 1 grams Route: IV; Rate: per protocol; Site: left forearm; ks7 21:59 Follow up: Pulse Ox 100% RA; Pain 3/10 Adult ks7 Intake: 22:00 IV: 500ml; Total: 500ml. ks7 Output: 22:00 Urine: 600ml (Voided); Total: 600ml. ks7 Outcome: 21:27 Discharge ordered by . [facility] 21:58 Discharged to home ambulatory, via wheelchair. ks7 21:58 Condition: improved 21:58 Discharge instructions given to patient, Instructed on discharge instructions, follow up and referral plans. medication usage, Demonstrated understanding of instructions, follow-up care, medications, Prescriptions given X 3. 22:00 Patient left the ED. ks7 Signatures: Tao Coleman MD MD cha Martinez, Amelia as Pena, Laura, RN RN lp1 Shannon Crfat RN RN ks7 Corrections: (The following items were deleted from the chart) 21:22 20:00 BP 189 / 87; Pulse 58bpm; Resp 18bpm; Pulse Ox 98% RA; Pain 8/10; ks7 ks7 21:58 20:00 IV discontinued, intact, bleeding controlled, No redness/swelling at site. ks7 Pressure dressing applied, ks7
--- NOTE | 2020-03-28 21:28 | EDPHYS ---
Physician Documentation [facility] Name: Rosario Randhawa Age: 74 yrs Sex: Female : 1945 Arrival Date: 03/28/2020 Time: 18:36 Bed 15 Private MD: ED Physician Tao Coleman HPI: 03/28 19:56 This 74 yrs old Female presents to ER via Wheelchair with complaints of Hip kandice Pain. 19:56 The patient or guardian reports decreased range of motion, pain. that occurred at an kandice unknown site. The complaints affect the left lower back and left gluteus melecio. Onset: The symptoms/episode began/occurred 2 week(s) ago. Modifying factors: The symptoms are alleviated by nothing, remaining still, the symptoms are aggravated by nothing, any movement. Associated signs and symptoms: Pertinent negatives: abdominal pain, anorexia, chest pain, diarrhea, dizziness, dysuria, fever, headache, incontinence, nausea, shortness of breath, vomiting, weakness. Severity of symptoms: At their worst the symptoms were moderate, in the emergency department the symptoms are unchanged. The patient has experienced similar episodes in the past, several times. Historical: - Allergies: 19:33 "sensitive to anything that makes some drowsy"; lp1 - Home Meds: 19:33 atorvastatin 10 mg Oral tab 1 tab once daily [Active]; losartan 100 mg Oral tab 1 tab lp1 once daily [Active]; - PMHx: 19:33 Arthritis; High Cholesterol; Hypertension; lp1 - Immunization history:: Adult Immunizations up to date. - Social history:: Smoking status: Patient denies any tobacco usage or history of. - Family history:: not pertinent. ROS: 19:56 Constitutional: Negative for fever, chills, and weight loss, Eyes: Negative for injury, kandice pain, redness, and discharge, ENT: Negative for injury, pain, and discharge, Neck: Negative for injury, pain, and swelling, Cardiovascular: Negative for chest pain, palpitations, and edema, Respiratory: Negative for shortness of breath, cough, wheezing, and pleuritic chest pain, Abdomen/GI: Negative for abdominal pain, nausea, vomiting, diarrhea, and constipation, Back: Negative for injury and pain, : Negative for injury, bleeding, discharge, and swelling, Skin: Negative for injury, rash, and discoloration, Neuro: Negative for headache, weakness, numbness, tingling, and seizure, Psych: Negative for depression, anxiety, suicide ideation, homicidal ideation, and hallucinations, Allergy/Immunology: Negative for hives, rash, and allergies, Endocrine: Negative for neck swelling, polydipsia, polyuria, polyphagia, and marked weight changes, Hematologic/Lymphatic: Negative for swollen nodes, abnormal bleeding, and unusual bruising. 19:56 MS/extremity: Positive for decreased range of motion, pain, tenderness, of the left hip and left lower back. Exam: 19:56 Constitutional: This is a well developed, well nourished patient who is awake, alert, kandice and in no acute distress. Head/Face: Normocephalic, atraumatic. Eyes: Pupils equal round and reactive to light, extra-ocular motions intact. Lids and lashes normal. Conjunctiva and sclera are non-icteric and not injected. Cornea within normal limits. Periorbital areas with no swelling, redness, or edema. ENT: Nares patent. No nasal discharge, no septal abnormalities noted. Tympanic membranes are normal and external auditory canals are clear. Oropharynx with no redness, swelling, or masses, exudates, or evidence of obstruction, uvula midline. Mucous membranes moist. Neck: Trachea midline, no thyromegaly or masses palpated, and no cervical lymphadenopathy. Supple, full range of motion without nuchal rigidity, or vertebral point tenderness. No Meningismus. Chest/axilla: Normal chest wall appearance and motion. Nontender with no deformity. No lesions are appreciated. Cardiovascular: Regular rate and rhythm with a normal S1 and S2. No gallops, murmurs, or rubs. Normal PMI, no JVD. No pulse deficits. Respiratory: Lungs have equal breath sounds bilaterally, clear to auscultation and percussion. No rales, rhonchi or wheezes noted. No increased work of breathing, no retractions or nasal flaring. Abdomen/GI: Soft, non-tender, with normal bowel sounds. No distension or tympany. No guarding or rebound. No evidence of tenderness throughout. Back: No spinal tenderness. No costovertebral tenderness. Full range of motion. Female : Normal external genitalia. Skin: Warm, dry with normal turgor. Normal color with no rashes, no lesions, and no evidence of cellulitis. Neuro: Awake and alert, GCS 15, oriented to person, place, time, and situation. Cranial nerves II-XII grossly intact. Motor strength 5/5 in all extremities. Sensory grossly intact. Cerebellar exam normal. Normal gait. Psych: Awake, alert, with orientation to person, place and time. Behavior, mood, and affect are within normal limits. 19:56 Musculoskeletal/extremity: ROM: limited active range of motion, limited passive range of motion, limited active range of motion due to pain, limited passive range of motion due to pain, Circulation is intact in all extremities. Sensation intact. Compartment Syndrome exam of affected extremity: is normal. Weight bearing: can bear weight with assistance only, limps, DVT Exam: no swelling, no tenderness, negative Homans' sign noted on exam, no appreciated bluish discoloration, no erythema, no increased warmth, pain. Vital Signs: 19:30 BP 189 / 87; Pulse 60; Resp 18; Pulse Ox 100% on R/A; lp1 19:32 BP 188 / 94; Pulse 64; Resp 18; Pulse Ox 100% on R/A; Pain 8/10; ks7 19:47 BP 189 / 87; Pulse 58; Resp 18; Pulse Ox 98% on R/A; Pain 8/10; ks7 21:00 BP 178 / 85; Pulse 60; Resp 18; Pulse Ox 96% on R/A; Pain 3/10; ks7 21:17 BP 165 / 75; Pulse 58; Resp 18; Temp 98.1(O); Pulse Ox 96% on R/A; Pain 3/10; ks7 21:59 Pulse Ox 100% on R/A; Pain 3/10; ks7 21:59 Pulse Ox 100% on R/A; Pain 3/10; ks7 21:59 Pulse Ox 100% on R/A; Pain 3/10; ks7 MDM: 19:19 Patient medically screened. kandice 20:00 Differential diagnosis: hip fracture, intertrochanteric fracture, femoral neck kandice fracture, femoral shaft fracture, bursitis, arthritis, strain. Data reviewed: vital signs, nurses notes, lab test result(s), radiologic studies, CT scan, plain films. Data interpreted: property assessment monitor: rate is 64 beats/min, rhythm is regular, Pulse oximetry: on room air is 100 %. Test interpretation: by ED physician or midlevel provider: plain radiologic studies. Counseling: I had a detailed discussion with the patient and/or guardian regarding: the historical points, exam findings, and any diagnostic results supporting the discharge/admit diagnosis, lab results, radiology results, the need for outpatient follow up, for definitive care, an care aide. 21:16 ED course: pt improved, will recommend follow up, fall percautions. [facility] 03/28 19:47 Order name: CBC with Diff [facility] 03/28 19:47 Order name: Comprehensive Metabolic Panel [facility] 03/28 19:47 Order name: Urine Culture [facility] 03/28 20:13 Order name: CBC with Automated Diff; Complete Time: 21:14 EDAL 03/28 20:31 Order name: Urine Dipstick--Ancillary (enter results) ar5 03/28 20:35 Order name: Comprehensive Metabolic Panel; Complete Time: 21:14 EDAL 03/28 19:47 Order name: Pelvis XRAY [facility] 03/28 19:47 Order name: CT Lumbar Spine Wo Con [facility] 03/28 19:47 Order name: CT Pelvis wo Cont: include bilateral hips [facility] 03/28 19:56 Order name: Femur Left XRAY [facility] 03/28 20:41 Order name: Urine Dipstick-Ancillary; Complete Time: 21:14 EDAL 03/28 21:19 Order name: CT; Complete Time: 21:26 EDAL 03/28 21:19 Order name: RAD; Complete Time: 21:26 EDAL 03/28 21:21 Order name: CT; Complete Time: 21:26 EDAL 03/28 19:47 Order name: Urine Dipstick-Ancillary (obtain specimen); Complete Time: 20:28 [facility] Administered Medications: Discontinued: NS 0.9% 1000 ml IV at 125 ml/hr continuous 20:18 Drug: NS 0.9% 1000 ml Route: IV; Rate: 125 ml/hr; Site: left forearm; ks7 20:20 Drug: TORadol 30 mg Route: IVP; Site: left femoral; ks7 21:59 Follow up: Pulse Ox 100% RA; Pain 3/10 Adult ks7 20:20 Drug: Decadron - Dexamethasone 10 mg Route: IVP; Site: left forearm; ks7 21:59 Follow up: Pulse Ox 100% RA; Pain 3/10 Adult ks7 21:35 Drug: Rocephin 1 grams Route: IV; Rate: per protocol; Site: left forearm; ks7 21:59 Follow up: Pulse Ox 100% RA; Pain 10/27 Adult ks7 Disposition: 03/28/20 21:27 Discharged to Home. Impression: Sciatica, left side, Low back pain, Spondylolysis, lumbar region, Urinary tract infection, site not specified. - Condition is Fair. - Discharge Instructions: Back Pain, Adult, Chronic Back Pain, Dysuria, Musculoskeletal Pain, Back Injury Prevention, Gubo-[id number], Back Pain, Adult, Ecca-ck-Zkct, Sciatica, Yafg-zy-Vzil. - Prescriptions for Tylenol- Codeine #3 300-30 mg Oral Tablet - take 1 tablet by ORAL route every 6 hours As needed; 26 tablet. Medrol (Antwan) 4 mg Oral Tablets, Dose Pack - take 1 tablet by ORAL route as directed - follow package instructions; 1 packet. Motrin IB 200 mg Oral Tablet - take 1 tablet by ORAL route every 6 hours As needed as needed with food; 40 tablet. Bactrim DS 800- 160 mg Oral Tablet - take 1 tablet by ORAL route every 12 hours for 5 days; 10 tablet. - Medication Reconciliation Form, Thank You Letter, Antibiotic Education, Prescription Opioid Use form. - Follow up: Ignacia Cooper; When: 1 - 2 days; Reason: Recheck today's complaints, Continuance of care, Re-evaluation by your physician. Follow up: Flaco Forbes; When: 2 - 3 days; Reason: Recheck today's complaints, Continuance of care, Re-evaluation by your physician. - Problem is new. - Symptoms have improved. Signatures: Dispatcher [employer] EDMS Tao Coleman MD MD cha Pena, Laura, RN RN lp1 Shannon Craft, RN RN ks7 Corrections: (The following items were deleted from the chart) 21:27 21:27 03/28/2020 21:27 Discharged to Home. Impression: Sciatica, left side; Low back kandice pain; Spondylolysis, lumbar region. Condition is Fair. Discharge Instructions: Back Pain, Adult, Chronic Back Pain, Musculoskeletal Pain, Back Injury Prevention, Xuxc-[id number], Back Pain, Adult, Noyp-iu-Ajep. Prescriptions for Tylenol-Codeine #3 300-30 mg Oral Tablet - take 1 tablet by ORAL route every 6 hours As needed; 26 tablet, Medrol (Antwan) 4 mg Oral Tablets, Dose Pack - take 1 tablet by ORAL route as directed - follow package instructions; 1 packet, Motrin IB 200 mg Oral Tablet - take 1 tablet by ORAL route every 6 hours As needed as needed with food; 40 tablet. and Forms are Medication Reconciliation Form, Thank You Letter, Antibiotic Education, Prescription Opioid Use. Follow up: Ignacia Cooper; When: 1 - 2 days; Reason: Recheck today's complaints, Continuance of care, Re-evaluation by your physician. Follow up: Flaco Forbes; When: 2 - 3 days; Reason: Recheck today's complaints, Continuance of care, Re-evaluation by your physician. Problem is new. Symptoms have improved. [facility] 22:00 21:27 03/28/2020 21:27 Discharged to Home. Impression: Sciatica, left side; Low back ks7 pain; Spondylolysis, lumbar region; Urinary tract infection, site not specified. Condition is Fair. Discharge Instructions: Back Pain, Adult, Chronic Back Pain, Musculoskeletal Pain, Back Injury Prevention, Ijpd-[id number]-[id number], Back Pain, Adult, Tait-qz-[id number]. Prescriptions for Tylenol-Codeine #3 300-30 mg Oral Tablet - take 1 tablet by ORAL route every 6 hours As needed; 26 tablet, Medrol (Antwan) 4 mg Oral Tablets, Dose Pack - take 1 tablet by ORAL route as directed - follow package instructions; 1 packet, Motrin IB 200 mg Oral Tablet - take 1 tablet by ORAL route every 6 hours As needed as needed with food; 40 tablet. and Forms are Medication Reconciliation Form, Thank You Letter, Antibiotic Education, Prescription Opioid Use. Follow up: Ignacia Cooper; When: 1 - 2 days; Reason: Recheck today's complaints, Continuance of care, Re-evaluation by your physician. Follow up: Flaco Forbes; When: 2 - 3 days; Reason: Recheck today's complaints, Continuance of care, Re-evaluation by your physician. Problem is new. Symptoms have improved. kandice
[2020-03-28] MEDS ORDERED: CEFTRIAXONE/SWI 1gm 1 GM/10 ML SYR ONE (21:40)
[2020-03-28 22:14] VITALS: BP 165/75; TEMP 98.1
[2020-03-28 22:16] VITALS: O2SAT 100
== END 2020-03-28 22:00 | disposition home or self-care (01) ==
LOC: ER 18:30
DX: M54.32 Sciatica, left side (principal); M47.896 Other spondylosis, lumbar region; N39.0 Urinary tract infection, site not specified; I10 Essential (primary) hypertension; E78.00 Pure hypercholesterolemia, unspecified
CPT/HCPCS: 87088; 85025; 87086; 36415; 81003; 80053; 72131; 72192; 73552; J1100; J0696; J7030; 99284

== ENCOUNTER 2020-03-30 22:16 | Observation (INO) | payer OTHER ==
--- OUTSIDE RECORDS SUMMARY | 2020-03-30 22:18 | XMS REPORT | Clinical Summary ---
:1945 Author Organization [facility] Address [address] [place] [address] Care Team Providers Name Role Phone Rosalee [...] Not on file Results Not on fileafter 03/30/2019 Insurance Payer Benefit Plan / Group Subscriber ID Type Phone A ddress MEDICARE MEDICARE A B xxxxxxxxxx Medicare AETNA - MGD CARE AETNA INDEMNITY NON CONTR xxxxxxxxx Comm Advance Directives For more information, please contact:[place] [address] [address] [place], [place] [phone] Code Status Date Activated Date Inactivated Comments Full Code 09/28/2016 5:51 AM 09/29/2016 6:27 PM This code status was determined by: Patient
--- OUTSIDE RECORDS SUMMARY | 2020-03-30 22:18 | XMS REPORT | Clinical Summary ---
:1945 Author Organization [facility] Address [address] [place] [address] Care Team Providers Name Role Phone MD [...] INFLUENZA VACCINE Discontinued Results Not on fileafter 03/30/2019 Insurance Payer Benefit Plan / Subscriber ID Effective Dates Phone Addre ss Type Group MEDICARE MEDICARE PART A AND xxxxxxxxxx 2008-[facility] [place] Medicare B t AETNA [facility] 2000-Presen Indemnity INDEMNITY t Advance Directives For more information, please contact: [phone] Type Date Recorded Patient Resident Services Manager Explanati on Advance Directives, Living Will and Medical Power of Renderer
--- OUTSIDE RECORDS SUMMARY | 2020-03-30 22:18 | XMS REPORT | Continuity of Care Document ---
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 extremity extremity Complicat ed by PE. Treated for 3 months with Xarelto Primary Primary Disease Active [place] osteoarthr osteoarthr 01-19 Me thodi itis itis [...] i both lower both lower 00:00: [facility] 00 s s Osteopenia Osteopenia Disease Active [place] 03[facility]07 [facility] 00:00: st 00 Knee pain Knee pain Disease Active [facility] 03-07 [facility] 00:00: st 00 HLD HLD Disease Active [place] (hyperlipi (hyperlipi 03-07 Me thodi demia) demia) 00:00: st 00 Bilateral Bilateral Disease Active Overview: [place] hearing hearing 03-07 Severe [facility] loss loss [...] Stop Date Source Natural mother Heart failure [place] [facility] Natural mother Other [facility] thodist Other Hypertension [place] Meth odist Social History Social Habit Start Date Stop Date Quantity Comments Source Sex Assigned At [facility]ist Alcohol intake 2017-04-30 2017-04-30 Current [facility] thodist 00:00:00 00:00:00 non-drinker of alcohol (finding) Smoking Status Start Date Stop Date Source Never smoker [place] [facility] t Medications Ordered Filled Start Stop [...] 00:00:00 SCAN] Future Scheduled 2008 65+ PNEUMOCOCCAL [place] [facility] Test 00:00:00 VACCINE (1 of 2 - PCV13) [code = 65+ PNEUMOCOCCAL VACCINE (1 of 2 - PCV13)] Future Scheduled 1993 SHINGLES VACCINES (#1) [facility] Test 00:00:00 [code = SHINGLES VACCINES (#1)] Encounters Start End Encounter Admission Attending Care Care Encounter Source Date/Time Date/Time Type Type Clinicians Facility Department ID 2020-03-19 2020-03-19 Refill [facility] [id number] 00:00:00 00:00:00 Flaco Asuragen [id number] Surgical [id number] Specialti [id number] [address] [place] 2020-01-26 2020-01-26 [facility] [id number] 15:14:00 23:59:00 Encounter Flaco Asuragen [id number] Surgical [id number] Specialti [id number] es [address] [place] 2020-01-26 2020-01-26 Office [facility] [id number] 14:48:16 15:42:05 Visit Flaco Asuragen [id number] Surgical [id number] Specialti [id number] [address] [place] Results This patient has no known results.
--- NOTE | 2020-03-30 23:31 | ER ---
Nurse's Notes [facility] Name: Rosario Randhawa Age: 74 yrs Sex: Female : 1945 Arrival Date: 03/30/2020 Time: 22:18 Bed 24 Private MD: Diagnosis: Osteoarthritis of hip, unspecified Presentation: 03/30 22:18 Chief complaint: EMS states: Pt was here over the weekend due to pain in the left hip jb4 from arthritis and sciatica. Family reports patient received a pain shot in the arm and it worked until today. No she says the pain is the worst it has ever been. Pt given 30 of toradol IV via a 20g IV in the LAC. Coronavirus screen: At this time, the client does not indicate any symptoms associated with coronavirus-19. Ebola Screen: No symptoms or risks identified at this time. 22:18 Method Of Arrival: EMS: [facility] jb4 22:18 Initial Sepsis Screen: Does the patient meet any 2 criteria? No. Patient's initial jb4 sepsis screen is negative. Does the patient have a suspected source of infection? No. Patient's initial sepsis screen is negative. Risk Assessment: Do you want to hurt yourself or someone else? Patient reports no desire to harm self or others. Onset of symptoms is unknown. Transition of care: patient was not received from another setting of care. 22:18 Acuity: JOSE 4 jb4 Historical: - Allergies: 22:18 "sensitive to anything that makes some drowsy"; jb4 - Home Meds: 22:18 atorvastatin 10 mg Oral tab 1 tab once daily [Active]; losartan 100 mg Oral tab 1 tab jb4 once daily [Active]; - PMHx: 22:18 Arthritis; High Cholesterol; Hypertension; jb4 - Immunization history:: Adult Immunizations up to date. - Social history:: Smoking status: Patient denies any tobacco usage or history of. Screenin:18 Abuse screen: Denies threats or abuse. Nutritional screening: No deficits noted. jb4 Tuberculosis screening: No symptoms or risk factors identified. Fall Risk None identified. Assessment: 22:18 General: Appears in no apparent distress. comfortable, Behavior is calm, cooperative, jb4 appropriate for age. Pain: Complains of pain in low back area Pain radiates to left leg Pain currently is 2 out of 10 on a pain scale. at worst was 10 out of 10 on a pain scale. Quality of pain is described as stabbing, Pain began Months ago Is intermittent, Alleviated by medications, rest, Aggravated by increased activity. Neuro: Level of Consciousness is awake, alert, obeys commands, Oriented to person, place, time, situation. Cardiovascular: Patient's skin is warm and dry. Respiratory: Airway is patent Respiratory effort is even, unlabored, Respiratory pattern is regular, symmetrical. GI: No signs and/or symptoms were reported involving the gastrointestinal system. : No signs and/or symptoms were reported regarding the genitourinary system. EENT: No signs and/or symptoms were reported regarding the EENT system. Derm: Skin is intact, Skin is pink, warm \\T\\ dry. Musculoskeletal: Circulation, motion, and sensation intact. Range of motion: intact in all extremities. 22:54 Reassessment: Pt assisted to restroom and back to bed via wheelchair. jb4 03/31 00:00 Reassessment: Patient and/or family updated on plan of care and expected duration. Pain jb4 level reassessed. Patient is alert, oriented x 3, equal unlabored respirations, skin warm/dry/pink. No s/s of pain or distress noted. Pt is resting comfortably in bed. respirations remain even and unlabored. Patient states feeling better. 00:19 Reassessment: Attempted to call report instructed to wait for call back. jb4 Vital Signs: 03/30 22:18 BP 176 / 86; Pulse 55; Resp 16; Temp 98.3(O); Pulse Ox 97% on R/A; Weight 72.57 kg (R); jb4 Height 5 ft. 3 in. (160.02 cm) (R); Pain 2/10; 03/31 00:00 BP 172 / 73; Pulse 65; Resp 18; Pulse Ox 98% on R/A; jb4 03/30 22:18 Body Mass Index 28.34 (72.57 kg, 160.02 cm) jb4 ED Course: 03/30 22:18 Patient arrived in ED. cl3 22:18 Arm band placed on right wrist. jb4 22:18 Patient has correct armband on for positive identification. Bed in low position. Call jb4 light in reach. Side rails up X 1. Pulse ox on. NIBP on. 22:25 Juan Jose Rossi, RN is Primary Nurse. jb4 22:27 Triage completed. jb4 22:35 Alonso Chan MD is Attending Physician. tw4 23:17 Pelvis XRAY In Process Unspecified. EDMS 23:30 Craig Cooper MD is Hospitalizing Provider. tw4 23:45 No provider procedures requiring assistance completed. Maintain EMS IV. Dressing jb4 intact. Good blood return noted. Site clean \\T\\ dry. Gauge \\T\\ site: 20g LAC. Patient admitted, IV remains in place. Administered Medications: 23:34 Not Given (Other Intervention Used): [place] 5 mg-325 mg 1 tabs PO once; RASS on ADMIN: jb4 Combtv4, Very Agttd3, Agttd2, Rstlss1, AlertClm0, Drwsy-1, Lt Sdtn-2, Mod Sdtn-3, Dp Sdtn-4, UnArsble-5 23:45 Drug: fentaNYL (PF) 25 mcg {Note: Rass score 0.} Route: IVP; Site: left antecubital; [facility] 03/31 00:15 Follow up: Response: No adverse reaction; Pain is decreased; RASS: Alert and Calm (0) [facility] Outcome: 03/30 23:31 Decision to Hospitalize by Provider. tw4 03/31 00:41 Admitted to Med/surg accompanied by tech, via stretcher, room 211, with chart, Report jb4 called to JANNA Woodward Condition: stable Discharge instructions given to patient, Instructed on the need for admit, Demonstrated understanding of instructions. 00:41 Patient left the ED. [facility] Signatures: Dispatcher [employer] EDJuan Jose Antoine, RN RN jb Alonso Chan MD MD tw4 Sami Hancock cl3
--- NOTE | 2020-03-30 23:31 | EDPHYS ---
Physician Documentation [facility] Name: Rosario Randhawa Age: 74 yrs Sex: Female : 1945 Arrival Date: 03/30/2020 Time: 22:18 Bed 24 Private MD: ED Physician Alonso Chan HPI: 03/30 23:10 This 74 yrs old Female presents to ER via EMS with complaints of Hip Pain. tw4 23:10 The patient or guardian reports pain. that occurred at home. The complaints affect the tw4 . Onset: The symptoms/episode began/occurred 1 week(s) ago. Modifying factors: The symptoms are alleviated by nothing, the symptoms are aggravated by nothing. The patient has not experienced similar symptoms in the past. Historical: - Allergies: 22:18 "sensitive to anything that makes some drowsy"; jb4 - Home Meds: 22:18 atorvastatin 10 mg Oral tab 1 tab once daily [Active]; losartan 100 mg Oral tab 1 tab jb4 once daily [Active]; - PMHx: 22:18 Arthritis; High Cholesterol; Hypertension; jb4 - Immunization history:: Adult Immunizations up to date. - Social history:: Smoking status: Patient denies any tobacco usage or history of. ROS: 23:10 Constitutional: Negative for fever, chills, and weight loss, Eyes: Negative for injury, tw4 pain, redness, and discharge, Cardiovascular: Negative for chest pain, palpitations, and edema, Respiratory: Negative for shortness of breath, cough, wheezing, and pleuritic chest pain, Abdomen/GI: Negative for abdominal pain, nausea, vomiting, diarrhea, and constipation, Skin: Negative for injury, rash, and discoloration, Neuro: Negative for headache, weakness, numbness, tingling, and seizure. 23:10 MS/extremity: Positive for decreased range of motion. Exam: 23:10 Constitutional: This is a well developed, well nourished patient who is awake, alert, tw4 and in no acute distress. Head/Face: Normocephalic, atraumatic. Chest/axilla: Normal chest wall appearance and motion. Nontender with no deformity. No lesions are appreciated. Vital Signs: 22:18 BP 176 / 86; Pulse 55; Resp 16; Temp 98.3(O); Pulse Ox 97% on R/A; Weight 72.57 kg (R); jb4 Height 5 ft. 3 in. (160.02 cm) (R); Pain 2/10; 03/31 00:00 BP 172 / 73; Pulse 65; Resp 18; Pulse Ox 98% on R/A; jb4 03/30 22:18 Body Mass Index 28.34 (72.57 kg, 160.02 cm) jb4 MDM: 03/30 22:35 Patient medically screened. tw4 03/30 23:37 Order name: Basic Metabolic Panel EDMS 03/30 23:37 Order name: Basic Metabolic Panel EDMS 03/30 23:37 Order name: CBC with Automated Diff EDMS 03/30 23:37 Order name: CBC with Automated Diff EDMS 03/31 00:12 Order name: CBC with Automated Diff EDMS 03/31 00:36 Order name: Basic Metabolic Panel EDMS 03/30 22:35 Order name: Pelvis XRAY tw4 Administered Medications: 23:34 Not Given (Other Intervention Used): [place] 5 mg-325 mg 1 tabs PO once; RASS on ADMIN: jb4 Combtv4, Very Agttd3, Agttd2, Rstlss1, AlertClm0, Drwsy-1, Lt Sdtn-2, Mod Sdtn-3, Dp Sdtn-4, UnArsble-5 23:45 Drug: fentaNYL (PF) 25 mcg {Note: Rass score 0.} Route: IVP; Site: left antecubital; 4 03/31 00:15 Follow up: Response: No adverse reaction; Pain is decreased; RASS: Alert and Calm (0) 4 Disposition: 03/30/20 23:31 Hospitalization ordered by Craig Cooper for Observation. Preliminary diagnosis is Osteoarthritis of hip, unspecified. - Bed requested for Telemetry/MedSurg (observation). - Status is Observation. jb4 - Condition is Stable. - Problem is an ongoing problem. - Symptoms are unchanged. Signatures: Dispatcher [employer] EDJessica Helms RN RN cg Juan Jose Rossi RN RN jb4 Alonso Chan MD MD tw4 Corrections: (The following items were deleted from the chart) 00:13 03/30 23:31 Hospitalization Ordered by Craig Cooper MD for Observation. Preliminary cg diagnosis is Osteoarthritis of hip, unspecified. Bed requested for Telemetry/MedSurg (observation). Status is Observation. Condition is Stable. Problem is an ongoing problem. Symptoms are unchanged. tw4 03/31 00:41 00:13 03/30/2020 23:31 Hospitalization Ordered by Craig Cooper MD for Observation. jb4 Preliminary diagnosis is Osteoarthritis of hip, unspecified. Bed requested for Telemetry/MedSurg (observation). Status is Observation. Condition is Stable. Problem is an ongoing problem. Symptoms are unchanged. cg
[2020-03-30] MEDS ORDERED: ACETAMINOPHEN 500 MG TAB PO PRN (23:34)
[2020-03-30] MEDS ORDERED: FENTANYL CITR 100 MCG/2 ML ONE (23:49)
[2020-03-31 00:11] LABS: Absolute Lymphocytes (CBC) 2.4 K/uL (0.7-4.9); Basophils % 0.3 % (0-1.3); Hematocrit 36.5 % (36.0-45.0); MPV 9.1 fL (7.6-11.3); RBC Red Blood Cell Count 4.41 M/uL (3.86-4.86)
[2020-03-31 00:18] LABS: Potassium 3.8 mmol/L (3.5-5.1)
[2020-03-31] MEDS ORDERED: FENTANYL CITR 100 MCG/2 ML IV ONE (02:32)
[2020-03-31 04:19] VITALS: BMI 28.3
[2020-03-31] MEDS: TRAMADOL 37.5mg/APAP 325mg PER TAB PO PRN ×2 (05:44→13:14)
[2020-03-31 05:52] LABS: Absolute Lymphocytes (CBC) 2.2 K/uL (0.7-4.9); Basophils % 0.2 % (0-1.3); Lymphocytes % 35.5 % (15.3-44.8); MPV 8.9 fL (7.6-11.3); RBC Red Blood Cell Count 4.56 M/uL (3.86-4.86)
[2020-03-31 06:06] LABS: BUN Blood Urea Nitrogen 15 mg/dL (7-18); Bicarbonate 30 mmol/L (21-32); Glucose Level 89 mg/dL (74-106); Potassium 3.8 mmol/L (3.5-5.1); Sodium Level 143 mmol/L (136-145)
--- NOTE | 2020-03-31 07:33 | RAD REPORT ---
EXAM DESCRIPTION: RAD - Pelvis - 03/30/2020 11:17 pm CLINICAL HISTORY: hip pain COMPARISON: Pelvis Wo Cont dated 03/28/2020 TECHNIQUE: AP imaging of the pelvis was obtained. FINDINGS: No fracture of the bony pelvis. No fracture, dislocation or other acute hip joint finding. Mild SI joint degenerative change present. Hip joint degenerative change is mild. No AVN or focal fe moral head abnormality. Joint effusion is not suspected. Lower lumbar degenerative change present only partially imaged. No soft tissue abnormality. IMPRESSION: No fracture or acute finding. Hip joint degenerative changes mild for age.
[2020-03-31] MEDS: METHYLPREDNISOLONE 40 MG INJ IV SCH ×3 (09:27→18:10)
[2020-03-31] MEDS: ATORVASTATIN 10 MG TAB PO SCH (09:29)
[2020-03-31] MEDS: LOSARTAN POTASSIUM 50 MG TABLET PO SCH (09:29)
[2020-03-31] MEDS: ENOXAPARIN 40 MG/0.4 ML SQ SCH (09:29)
[2020-03-31] MEDS ORDERED: LORazepam 2 MG/ML VIAL IV ONE (09:59)
--- NOTE | 2020-03-31 16:19 | RAD REPORT ---
EXAM DESCRIPTION: MRI - Lumbar Spine Wo Con - 03/31/2020 3:43 pm CLINICAL HISTORY: Radiculopathy COMPARISON: March 28, 2020 cat scan TECHNIQUE: Sagittal T1, T2 and STIR weighted sequences were obtained. Axial T1 and T2 sequences were obtained through the lumbar disc levels. FINDINGS: [id number] scoliosis involves the thoracolumbar spine Mild spondylosis L1-2 Disc bulge and ligamentum flavum hypertrophy L2-3. Mild narrowing of the right neural foramina. Theca l sac is minimally narrowed Disc bulge, ligamentum flavum and facet hypertrophy L3-4. Minimal narrowing of thecal sac. Mild narro wing of the neural foramina Disc bulge, ligamentum flavum facet hypertrophy L4-5. The thecal sac measures 9 millimeters. Lateral recesses are narrowed bilaterally. Mild to moderate narrowing left mild narrowing the right neural fo ramina Mild spondylosis L5-S1 No significant abnormal signal the bones IMPRESSION: Spondylosis most marked L4-5 resulting in mild central spinal stenosis. Lateral recesses are also narrowed
[2020-04-01] MEDS: METHYLPREDNISOLONE 40 MG INJ IV SCH ×2 (00:11→06:29)
--- NOTE | 2020-04-01 05:37 | HP ---
Date of Admission: 03/31/2020 Chief Complaint: Back pain. History Of Present Illness: This is a 74-year-old female patient, who had 2 visits to emergency room last weekend because of similar complaint in lower back. Workup done in the emergency reviewed including blood work, x-ray, CAT scan, etc. I talked to the patient via telehealth visit this week and we reviewed all her test results done in the emergency room and I recommended for the patient to go to [facility]. In the beginning, she was agreeable, but subsequently, she decided that she wanted to try Celebrex instead of seeing custom [facility]. So, per her request, prescription for Celebrex was sent to her pharmacy. Meanwhile, last night, she ends up back in the emergency room with this complaint of pain and she was admitted to the hospital after ER physician evaluated her. When I saw her this morning, she was lying in bed in her right lateral position and reports having pain. Most of her pain is in the lower back and left paralumbar spine area. Denies any fall or injury. She is also complaining of pain in the left leg in the area between left knee and foot. Tingling, numbness. No fall. No injury. Allergies: NO KNOWN ALLERGIES. Medications: Atorvastatin 10 mg daily, aspirin 81 mg daily, losartan 100 mg p.o. daily, and Celebrex which was started 100 mg twice a day. Review of Systems: Musculoskeletal: As mentioned above. All other systems reviewed and negative. Past Medical History: Impaired hearing, hypertension, hyperlipidemia, osteoarthritis at multiple sites. Past Surgical History: Appendectomy, hysterectomy, bladder suspension. Family History: Mother and had heart disease. Social History: Negative for smoking and alcohol use. Physical Examination: Vital Signs: Temperature 97.9, pulse 65, respiratory rate 18, blood pressure 179/72, oxygen saturation 99%, height 5 feet 3 inches, weight 160 pounds. General: Awake, alert, oriented, not in distress. HEENT: Head atraumatic, normocephalic. Conjunctivae nonerythematous. Sclerae white. Mouth, no thrush or edema noted. Ears/Nose, no mass, lesion, discharge noted. Neck: Supple. No JVD, lymph nodes, bruit, thyromegaly noted. Lungs: Bilateral good equal air entry. Clear to auscultation. No rhonchi. No rales. Heart: Normal heart sounds, no murmur or gallop. Abdomen: Soft, bowel sounds normal. No guarding, rigidity, tenderness, mass, hepatosplenomegaly, distention, or bruit noted. Extremities: No leg edema. No calf tenderness. Skin: No rash, ulcer, cellulitis. Lymphatics: No lymph node enlargement in neck, supraclavicular, infraclavicular region. Neuro: The patient's straight leg raising sign is positive in left lower extremity. No weakness of any extremity noted. No evidence of footdrop. Chest: Unremarkable. External Genitalia: Deferred. Rectal: Deferred. Laboratory Data: Last night, white count 6.2, hemoglobin 12.5, platelets 181. This morning, white count 6.2, hemoglobin 13, platelets 188. Last night, sodium 143, potassium 3.8, chloride 110, bicarb 28, BUN 17, creatinine 0.67, glucose 89. This morning, sodium 143, potassium 3.8, chloride 108, bicarb 30, BUN 15, creatinine 0.57, glucose 80. Her MRI of lumbar spine, which was done today shows evidence of scoliosis, lumbar spondylosis, and bulging disk. So far, outpatient workup done included x-ray of lumbar spine and SI joint from 12/22/2019, showed degenerative joint disease. CAT scan of pelvis from 03/28/2020 shows mild osteoarthritis of bilateral hips and diverticulosis. CAT scan of lumbar spine from 03/28/2020 shows moderate spondylosis. Impression: 1. Lumbar radiculopathy. 2. Osteoarthritis, multiple sites. 3. Hypertension. 4. Hyperlipidemia. 5. Impaired hearing. Plan: Admit the patient to hospital for further evaluation and management of this problem. The patient is appropriate for observation and we will continue home medications. We will give her pain medications per order. DVT prophylaxis was ordered using Lovenox. The patient was started on IV steroid. I will see her tomorrow for followup. Hopefully, we can plan to discharge her to go home tomorrow with oral steroid therapy and she does have pain medication prescription at home, which was given to her from emergency room visit. I have called the patient's daughter this evening and talked to her in details about all the test results and my recommendation once again for the patient to go visit the custom motorcycle painter as soon as possible. At this point, there is no need for any kind of surgical intervention. AYANA/CIRO Voice ID: [id number] ZHANG
[2020-04-01] MEDS: ATORVASTATIN 10 MG TAB PO SCH (08:00)
[2020-04-01] MEDS: LOSARTAN POTASSIUM 50 MG TABLET PO SCH (08:00)
[2020-04-01] MEDS: ENOXAPARIN 40 MG/0.4 ML SQ SCH (08:00)
[2020-04-01 09:40] VITALS: BP 144/85; TEMP 96.8
[2020-04-01 09:48] VITALS: O2SAT 95
--- NOTE | 2020-04-02 02:45 | DS ---
Date of Discharge: 04/01/2020 Disposition: Discharged to go home. Physical Examination: HEENT: Unremarkable. Lungs: Clear to auscultation. Cardiac: Heart sounds normal. Abdomen: Soft. Bowel sounds normal. No guarding, rigidity, tenderness, or distention. Extremities: No leg edema. Discharge Medications And Instructions: 1. Continue prior home medications. 2. Prednisone 10 mg, patient to take 3 tablets daily for 3 days, then 2 tablets daily for 3 days, then 1 tablet daily for 3 days, then stop. Take it with food. 3. Follow up with Pain Management physician as suggested and details were discussed with the patient as well as her daughter. Laboratory Data: Labs done during this hospitalization upon admission, white count 6.2, hemoglobin 12.5, platelets 181. Chemistry was sodium 143, potassium 3.8, chloride 110, bicarb 28, BUN 17, creatinine 0.67, glucose 89. Hospital Course: This is a 74-year-old female patient, who was admitted to the hospital with complaints of back pain. Please see dictated H and P for more information. After the patient was admitted to the hospital, she was started on IV steroid and home medications were continued. DVT prophylaxis was given using Lovenox. MRI of the lumbar spine was done yesterday and which showed evidence of degenerative joint disease, bulging disk, and scoliosis. There was no evidence of any compression fracture. No evidence of herniated disk. MRI of the hip was ordered, but the patient was not able to get that particular test done because she was not able to stay on the MRI table in certain positions, so she was not cooperative with this exam and MRI of hip was not done. In any case, the patient had imaging study done of both hips on outpatient basis during her recent ER visit. After her steroid medication was started, her condition improved. Pain has improved significantly to the extent that she is able to get out of bed and move around on her own. I have talked to the patient and her daughter and explained importance of seeing Pain Management physician for further management. The patient's daughter was given appropriate information regarding pain specialist and she will schedule appointment and she will call for appointment. Final Diagnoses: 1. Lumbar radiculopathy. 2. Osteoarthritis, multiple sites. 3. Scoliosis. 4. Hypertension. 5. Hyperlipidemia. 6. Impaired hearing. Discharge Instructions: Follow up at my office next week. AYANA/MODL Voice ID: [id number] Report ID: [id number]
== END 2020-04-01 10:47 | disposition home or self-care (01) ==
LOC: ER 22:16 → ERHOLD 23:33 → 2ND 03-31 00:30
PROVIDERS: ADMIT Internal Medicine; ATTEND Internal Medicine
DX: M54.16 Radiculopathy, lumbar region (principal); M15.9 Polyosteoarthritis, unspecified; M41.9 Scoliosis, unspecified; I10 Essential (primary) hypertension; E78.5 Hyperlipidemia, unspecified; H91.90 Unspecified hearing loss, unspecified ear; Z79.82 Long term (current) use of aspirin; Z82.49 Family history of ischemic heart disease and other diseases of the circulatory system
CPT/HCPCS: 85025 ×2; 80048 ×2; 36415; 72170; 72148; 96374; 99285; U0002; J1650 ×2; J3010 ×2; J2920 ×5; G0378 ×3

== ENCOUNTER 2020-04-10 15:28 | Inpatient (IN) | payer OTHER ==
--- OUTSIDE RECORDS SUMMARY | 2020-04-10 15:30 | XMS REPORT | Continuity of Care Document ---
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 extremity extremity Complicat ed by PE. Treated for 3 months with Xarelto Primary Primary Disease Active [place] osteoarthr osteoarthr 01-19 Me thodi itis itis [...] i both lower both lower 00:00: [facility] 00 s s Osteopenia Osteopenia Disease Active [place] 03-07 [facility] 00:00: st 00 Knee pain Knee pain Disease Active [facility] 03-07 [facility] 00:00: st 00 HLD HLD Disease Active [place] (hyperlipi (hyperlipi 03-07 Me thodi demia) demia) 00:00: st 00 Bilateral Bilateral Disease Active Overview: [place] hearing hearing 03-07 Severe [facility] loss loss [...] Stop Date Source Natural mother Heart failure [place] [facility] Natural mother Other [facility] thodist Other Hypertension [place] [facility] odist Social History Social Habit Start Date Stop Date Quantity Comments Source Sex Assigned At [facility] Alcohol intake 2017-04-30 2017-04-30 Current [facility] thodist 00:00:00 00:00:00 non-drinker of alcohol (finding) Smoking Status Start Date Stop Date Source Never smoker [place] [facility] t Medications Ordered Filled Start Stop [...] 00:00:00 SCAN] Future Scheduled 2008 65+ PNEUMOCOCCAL [place] [facility] Test 00:00:00 VACCINE (1 of 2 - PCV13) [code = 65+ PNEUMOCOCCAL VACCINE (1 of 2 - PCV13)] Future Scheduled 1993 SHINGLES VACCINES (#1) [facility] Test 00:00:00 [code = SHINGLES VACCINES (#1)] Encounters Start End Encounter Admission Attending Care Care Encounter Source Date/Time Date/Time Type Type Clinicians Facility Department ID 2020-03-19 2020-03-19 Refill [facility] [id number] 00:00:00 00:00:00 [employer] [id number] Surgical [id number] Specialti [id number] [address] 2020-01-26 2020-01-26 [facility] [id number] 15:14:00 23:59:00 Encounter [employer] [id number] Surgical [id number] Specialti [id number] [address] 2020-01-26 2020-01-26 Office [facility] [id number] 14:48:16 15:42:05 Visit [employer] [id number] Surgical [id number] [facility]ti [id number] [address] Results This patient has no known results.
--- OUTSIDE RECORDS SUMMARY | 2020-04-10 15:30 | XMS REPORT | Clinical Summary ---
:1945 Author Organization [facility] Address [address] [place] [address] Care Team Providers Name Role Phone MD [...] INFLUENZA VACCINE Discontinued Results Not on fileafter 04/10/2019 Insurance Payer Benefit Plan / Subscriber ID Effective Dates Phone Addre ss Type Group MEDICARE MEDICARE PART A AND xxxxxxxxxx 2008-[facility] [place] Medicare B t AETNA [facility] 2000-[facility] Indemnity INDEMNITY t Advance Directives For more information, please contact: [phone] Type Date Recorded Patient Diversity Manager Explanati on Advance Directives, Living Will and Medical Power of Business Systems Manager
--- OUTSIDE RECORDS SUMMARY | 2020-04-10 15:30 | XMS REPORT | Clinical Summary ---
:1945 Author Organization [facility] Address [address] [place] [address] Care Team Providers Name Role Phone Rosalee [...] Not on file Results Not on fileafter 04/10/2019 Insurance Payer Benefit Plan / Group Subscriber ID Type Phone A ddress MEDICARE MEDICARE A B xxxxxxxxxx Medicare AETNA - [place] CARE AETNA INDEMNITY NON CONTR xxxxxxxxx Comm Advance Directives For more information, please contact:[place] [address] [place], [place] [phone] Code Status Date Activated Date Inactivated Comments Full Code 09/28/2016 5:51 AM 09/29/2016 6:27 PM This code status was determined by: Patient
[2020-04-10] MEDS ORDERED: DIAZEPAM 5 MG TABLET ONE (16:42)
[2020-04-10] MEDS ORDERED: dexAMETHasone 10 MG/ML VIAL ONE (16:43)
[2020-04-10] MEDS ORDERED: HYDROMORPHONE HCL 0.5 MG/0.5 ML INJ ONE (16:43)
[2020-04-10] MEDS ORDERED: NA CHLORIDE 0.9% 1,000 ML ONE (16:43)
[2020-04-10] MEDS ORDERED: ONDANSETRON 4 MG/2 ML VIAL ONE (16:43)
--- NOTE | 2020-04-10 17:24 | EDPHYS ---
Physician Documentation [facility] Name: Rosario Randhawa Age: 74 yrs Sex: Female : 1945 Arrival Date: 04/10/2020 Time: 15:37 Bed 15 Private MD: ED Physician Tao Coleman HPI: 04/10 16:09 This 74 yrs old Female presents to ER via EMS with complaints of Back Pain. kandice 16:09 The patient presents with pain that is acute. The symptoms are located in the low back, kandice lumbar area and left low back. Onset: The symptoms/episode began/occurred 1 week(s) ago. The pain radiates to the lumbar area and left low back. Associated signs and symptoms: The patient has no apparent associated signs or symptoms. The problem was sustained from unknown cause. Modifying factors: The patient symptoms are alleviated by remaining still, the patient symptoms are aggravated by any movement. Severity of symptoms: At their worst the symptoms were moderate. The patient has experienced similar episodes in the past, several times. Historical: - Allergies: 15:46 "sensitive to anything that makes some drowsy"; jl7 - Home Meds: 15:46 atorvastatin 10 mg Oral tab 1 tab once daily [Active]; losartan 100 mg Oral tab 1 tab jl7 once daily [Active]; - PMHx: 15:46 Arthritis; High Cholesterol; Hypertension; jl7 - PSHx: 15:46 None; jl7 - Immunization history:: Adult Immunizations unknown. - Social history:: Smoking status: Patient denies any tobacco usage or history of. - Family history:: not pertinent. ROS: 16:09 Eyes: Negative for injury, pain, redness, and discharge, ENT: Negative for injury, kandice pain, and discharge, Neck: Negative for injury, pain, and swelling, Cardiovascular: Negative for chest pain, palpitations, and edema, Respiratory: Negative for shortness of breath, cough, wheezing, and pleuritic chest pain, Abdomen/GI: Negative for abdominal pain, nausea, vomiting, diarrhea, and constipation, : Negative for injury, bleeding, discharge, and swelling, MS/Extremity: Negative for injury and deformity, Skin: Negative for injury, rash, and discoloration, Neuro: Negative for headache, weakness, numbness, tingling, and seizure. 16:09 Constitutional: Positive for malaise. 16:09 Back: Positive for decreased range of motion, pain at rest, pain with movement. 16:09 MS/extremity: Negative for swelling, tenderness. Exam: 16:09 Constitutional: This is a well developed, well nourished patient who is awake, alert, kandice and in no acute distress. Head/Face: Normocephalic, atraumatic. Eyes: Pupils equal round and reactive to light, extra-ocular motions intact. Lids and lashes normal. Conjunctiva and sclera are non-icteric and not injected. Cornea within normal limits. Periorbital areas with no swelling, redness, or edema. ENT: Nares patent. No nasal discharge, no septal abnormalities noted. Tympanic membranes are normal and external auditory canals are clear. Oropharynx with no redness, swelling, or masses, exudates, or evidence of obstruction, uvula midline. Mucous membranes moist. Neck: Trachea midline, no thyromegaly or masses palpated, and no cervical lymphadenopathy. Supple, full range of motion without nuchal rigidity, or vertebral point tenderness. No Meningismus. Chest/axilla: Normal chest wall appearance and motion. Nontender with no deformity. No lesions are appreciated. Cardiovascular: Regular rate and rhythm with a normal S1 and S2. No gallops, murmurs, or rubs. Normal PMI, no JVD. No pulse deficits. Respiratory: Lungs have equal breath sounds bilaterally, clear to auscultation and percussion. No rales, rhonchi or wheezes noted. No increased work of breathing, no retractions or nasal flaring. Abdomen/GI: Soft, non-tender, with normal bowel sounds. No distension or tympany. No guarding or rebound. No evidence of tenderness throughout. Skin: Warm, dry with normal turgor. Normal color with no rashes, no lesions, and no evidence of cellulitis. MS/ Extremity: Pulses equal, no cyanosis. Neurovascular intact. Full, normal range of motion. Neuro: Awake and alert, GCS 15, oriented to person, place, time, and situation. Cranial nerves II-XII grossly intact. Motor strength 5/5 in all extremities. Sensory grossly intact. Cerebellar exam normal. Normal gait. Psych: Awake, alert, with orientation to person, place and time. Behavior, mood, and affect are within normal limits. 16:09 Back: pain, that is moderate, ROM is painful, normal spinal alignment noted, CVA tenderness, is absent, vertebral tenderness, is not appreciated. Vital Signs: 15:37 BP 129 / 73; Pulse 79; Resp 20; Temp 98.2; Pulse Ox 100% ; Weight 77.11 kg; Pain 10/10; jl7 16:00 BP 167 / 98; Pulse 96; Resp 17; Pulse Ox 100% on R/A; jl7 17:00 BP 130 / 84; Pulse 75; Resp 17; Pulse Ox 100% ; jl7 19:42 BP 138 / 76; Pulse 81; Resp 18; Temp 98.1; Pulse Ox 96% on R/A; mg2 MDM: 15:40 Patient medically screened. [facility] 16:24 Differential diagnosis: chronic back pain, Fatigue Ligament Injury Osteoarthritis kandice Osteoporosis sprain, Ureterolithiasis vertebral fracture. Data reviewed: vital signs, nurses notes, lab test result(s), radiologic studies, CT scan, MRI. Data interpreted: hall monitor: rate is 79 beats/min, rhythm is regular, Pulse oximetry: on room air is 100 %. Test interpretation: by ED physician or midlevel provider: plain radiologic studies. Counseling: I had a detailed discussion with the patient and/or guardian regarding: the historical points, exam findings, and any diagnostic results supporting the discharge/admit diagnosis, lab results, radiology results, the need for further work-up and treatment in the hospital. 04/10 16:07 Order name: CBC with Diff; Complete Time: 18:15 [facility] 04/10 16:07 Order name: Comprehensive Metabolic Panel; Complete Time: 18:41 [facility] 04/10 17:28 Order name: Urine Dipstick--Ancillary (enter results); Complete Time: 18:15 [facility] 04/10 18:16 Order name: Urine Culture [facility] 04/10 16:07 Order name: Urine Dipstick-Ancillary (obtain specimen); Complete Time: 17:28 [facility] Administered Medications: 16:50 Drug: Valium 5 mg Route: PO; jl7 17:30 Follow up: Response: No adverse reaction; Pain is decreased jl7 17:30 Drug: NS 0.9% 1000 ml Route: IV; Rate: 125 ml/hr; Site: right hand; jl7 19:15 Follow up: IV Status: Infusion continued upon admission jl7 17:30 Drug: Decadron - Dexamethasone 10 mg Route: IVP; Site: right hand; jl7 18:00 Follow up: Response: No adverse reaction; Pain is decreased jl7 17:35 Drug: Dilaudid 0.5 mg Route: IVP; Site: right hand; jl7 19:15 Follow up: Response: No adverse reaction; Pain is decreased jl7 17:35 Drug: Zofran (Ondansetron) 4 mg Route: IVP; Site: right hand; jl7 19:15 Follow up: Response: No adverse reaction jl7 19:40 Drug: Rocephin 1 grams Route: IV; Rate: per protocol; Site: right forearm; mg2 19:40 Follow up: Response: No adverse reaction; IV Status: Completed infusion mg2 Disposition: 04/10/20 17:23 Hospitalization ordered by Ignacia Cooper for Observation. Preliminary diagnosis are Low back pain - intractable, Sciatica, left side, Urinary tract infection, site not specified. - Bed requested for Telemetry/MedSurg (observation). - Status is Observation. mg2 - Condition is Fair. - Problem is new. - Symptoms have improved. Signatures: Dispatcher [employer] EDID Tao Coleman MD MD cha Leal, Jahala RN RN Krystyna Abdul mt, Michele, RN RN mg2 Corrections: (The following items were deleted from the chart) 18:29 17:23 Hospitalization Ordered by A Allison PRUITT for Observation. Preliminary diagnosis is kandice Low back pain - intractable; Sciatica, left side. Bed requested for Telemetry/MedSurg (observation). Status is Observation. Condition is Fair. Problem is new. Symptoms have improved. [facility] 18:57 18:29 04/10/2020 17:23 Hospitalization Ordered by A Allison PRUITT for Observation. mt Preliminary diagnosis is Low back pain - intractable; Sciatica, left side; Urinary tract infection, site not specified. Bed requested for Telemetry/MedSurg (observation). Status is Observation. Condition is Fair. Problem is new. Symptoms have improved. [facility] 19:57 18:57 04/10/2020 17:23 Hospitalization Ordered by A Allison PRUITT for Observation. mg2 Preliminary diagnosis is Low back pain - intractable; Sciatica, left side; Urinary tract infection, site not specified. Bed requested for Telemetry/MedSurg (observation). Status is Observation. Condition is Fair. Problem is new. Symptoms have improved. mt
--- NOTE | 2020-04-10 17:24 | ER ---
Nurse's Notes [facility] Name: Rosario Randhawa Age: 74 yrs Sex: Female : 1945 Arrival Date: 04/10/2020 Time: 15:37 Bed 15 Private MD: Diagnosis: Low back pain-intractable;Sciatica, left side;Urinary tract infection, site not specified Presentation: 04/10 15:37 Chief complaint: EMS states: left low back pain that radiates to left leg, was jl7 discharged from here a few days ago for the same thing and it's worse. Coronavirus screen: Client denies travel out of the [place] in the last 14 days. At this time, the client does not indicate any symptoms associated with coronavirus-19. Ebola Screen: No symptoms or risks identified at this time. Initial Sepsis Screen: Does the patient meet any 2 criteria? No. Patient's initial sepsis screen is negative. Does the patient have a suspected source of infection? No. Patient's initial sepsis screen is negative. Risk Assessment: Do you want to hurt yourself or someone else? Patient reports no desire to harm self or others. Onset of symptoms is unknown. Care prior to arrival: None. Transition of care: patient was not received from another setting of care. 15:37 Method Of Arrival: EMS: [place] [id number] 15:37 Acuity: JOSE 4 jl7 17:00 Acuity: JOSE 3 jl7 Triage Assessment: 15:37 General: Appears in no apparent distress. uncomfortable, Behavior is cooperative, jl7 anxious, crying. Pain: Complains of pain in left low back and lumbar area Pain radiates to left leg Pain currently is 10 out of 10 on a pain scale. Quality of pain is described as sharp, shooting, Is continuous. Neuro: Level of Consciousness is awake, alert, obeys commands, Oriented to person, place, time, situation. Cardiovascular: Patient's skin is warm and dry. Respiratory: Airway is patent Respiratory effort is even, unlabored, Respiratory pattern is regular, symmetrical. Derm: Skin is pink, warm \\T\\ dry. Musculoskeletal: Range of motion: limited in left hip. Historical: - Allergies: 15:46 "sensitive to anything that makes some drowsy"; jl7 - Home Meds: 15:46 atorvastatin 10 mg Oral tab 1 tab once daily [Active]; losartan 100 mg Oral tab 1 tab jl7 once daily [Active]; - PMHx: 15:46 Arthritis; High Cholesterol; Hypertension; jl7 - PSHx: 15:46 None; jl7 - Immunization history:: Adult Immunizations unknown. - Social history:: Smoking status: Patient denies any tobacco usage or history of. - Family history:: not pertinent. Screenin:00 Abuse screen: Denies threats or abuse. Denies injuries from another. Nutritional jl7 screening: No deficits noted. Tuberculosis screening: No symptoms or risk factors identified. Fall Risk IV access (20 points). Assessment: 15:37 General: See triage assessment. jl7 16:30 Reassessment: Patient appears in no apparent distress at this time. No changes from jl7 previously documented assessment. Patient and/or family updated on plan of care and expected duration. Pain level reassessed. Patient is alert, oriented x 3, equal unlabored respirations, skin warm/dry/pink. 17:45 Reassessment: Repositioned pt with blankets under knees and behind pt, pt reports jl7 decreased pain as long as she doesn't move. Vital Signs: 15:37 BP 129 / 73; Pulse 79; Resp 20; Temp 98.2; Pulse Ox 100% ; Weight 77.11 kg; Pain 10/10; jl7 16:00 BP 167 / 98; Pulse 96; Resp 17; Pulse Ox 100% on R/A; jl7 17:00 BP 130 / 84; Pulse 75; Resp 17; Pulse Ox 100% ; jl7 19:42 BP 138 / 76; Pulse 81; Resp 18; Temp 98.1; Pulse Ox 96% on R/A; mg2 ED Course: 15:37 Patient arrived in ED. jl7 15:37 Arm band placed on right wrist. jl7 15:37 Patient has correct armband on for positive identification. Placed in gown. Bed in low jl7 position. Call light in reach. Side rails up X2. Pulse ox on. NIBP on. 15:40 Tao Coleman MD is Attending Physician. [facility] 15:45 Triage completed. jl7 16:24 Carmelo Gaines RN is Primary Nurse. jl7 17:22 Ignacia Cooper MD is Hospitalizing Provider. kandice 17:30 Initial lab(s) drawn, by me, sent to lab. Inserted saline lock: 20 gauge in right hand, jl7 using aseptic technique. Blood collected. 19:17 No provider procedures requiring assistance completed. Patient admitted, IV remains in jl7 place. intact, No redness/swelling at site. Administered Medications: 16:50 Drug: Valium 5 mg Route: PO; jl7 17:30 Follow up: Response: No adverse reaction; Pain is decreased jl7 17:30 Drug: NS 0.9% 1000 ml Route: IV; Rate: 125 ml/hr; Site: right hand; jl7 19:15 Follow up: IV Status: Infusion continued upon admission jl7 17:30 Drug: Decadron - Dexamethasone 10 mg Route: IVP; Site: right hand; jl7 18:00 Follow up: Response: No adverse reaction; Pain is decreased jl7 17:35 Drug: Dilaudid 0.5 mg Route: IVP; Site: right hand; jl7 19:15 Follow up: Response: No adverse reaction; Pain is decreased jl7 17:35 Drug: Zofran (Ondansetron) 4 mg Route: IVP; Site: right hand; jl7 19:15 Follow up: Response: No adverse reaction jl7 19:40 Drug: Rocephin 1 grams Route: IV; Rate: per protocol; Site: right forearm; mg2 19:40 Follow up: Response: No adverse reaction; IV Status: Completed infusion mg2 Outcome: 17:23 Decision to Hospitalize by Provider. kandice 19:50 Admitted to Med/surg accompanied by nurse, via stretcher, room 229, with chart, Report mg2 called to JANNA Steinberg 19:50 Condition: stable 19:50 Instructed on the need for admit, Demonstrated understanding of instructions. 19:57 Patient left the ED. mg2 Signatures: Tao Coleman MD MD cha Leal, Jahala, RN RN jl7 Lance Apodaca RN RN mg2
[2020-04-10 17:58] LABS: Absolute Lymphocytes (CBC) 2.4 K/uL (0.7-4.9); Basophils % 0.7 % (0-1.3); Hematocrit 40.4 % (36.0-45.0); Lymphocytes % 25.8 % (15.3-44.8); MPV 8.7 fL (7.6-11.3)
[2020-04-10 18:14] LABS: Urine Glucose NEGATIVE (NEG)
[2020-04-10 18:15] LABS: Urine Blood TRACE (NEG); Urine Protein NEGATIVE (NEG); Urine pH 8.5 (5.0-7.0)
[2020-04-10 18:24] LABS: Albumin 3.4 g/dL (3.4-5.0); Bilirubin Total 0.4 mg/dL (0.2-1.0); Potassium 3.6 mmol/L (3.5-5.1); Protein, Total 6.3 g/dL (6.4-8.2)
[2020-04-10] MEDS ORDERED: CEFTRIAXONE/SWI 1gm 1 GM/10 ML SYR ONE (19:18)
[2020-04-10] MEDS ORDERED: METHYLPREDNISOLONE 125 MG INJ IV SCH (19:58)
[2020-04-10] MEDS ORDERED: ONDANSETRON 4 MG/2 ML VIAL IV PRN (19:58)
[2020-04-10] MEDS ORDERED: ACETAMINOPHEN 325 MG TABLET PO PRN (20:12)
[2020-04-10] MEDS: LOSARTAN POTASSIUM 50 MG TABLET PO SCH ×2 (21:00→21:34)
[2020-04-10] MEDS: NA CHLORIDE 0.9% 1,000 ML IV SCH (21:34)
[2020-04-10] MEDS: FAMOTIDINE 20 MG/2 ML VIAL IV SCH (21:34)
[2020-04-10] MEDS: MORPHINE 2 MG/ML SYR IV PRN (21:50)
[2020-04-10 22:08] VITALS: BMI 26.1
[2020-04-10] MEDS: METHYLPREDNISOLONE 125 MG INJ IV SCH (23:36)
[2020-04-11 04:29] LABS: Absolute Lymphocytes (CBC) 0.7 K/uL (0.7-4.9); Basophils % 0.3 % (0-1.3); Hematocrit 40.2 % (36.0-45.0); Lymphocytes % 8.2 % (15.3-44.8); MPV 9.1 fL (7.6-11.3); RBC Red Blood Cell Count 4.77 M/uL (3.86-4.86)
[2020-04-11 04:40] LABS: BUN Blood Urea Nitrogen 18 mg/dL (7-18); Bicarbonate 27 mmol/L (21-32); Glucose Level 135 mg/dL (74-106); Potassium 4.9 mmol/L (3.5-5.1); Sodium Level 140 mmol/L (136-145)
[2020-04-11] MEDS: MORPHINE 2 MG/ML SYR IV PRN ×5 (04:41→20:14)
[2020-04-11] MEDS: METHYLPREDNISOLONE 125 MG INJ IV SCH ×3 (05:16→17:30)
[2020-04-11] MEDS: NA CHLORIDE 0.9% 1,000 ML IV SCH (05:16)
[2020-04-11 05:40] LABS: Blood Morphology Comment NOT SEEN (NOT SEEN); Platelet Estimate ADEQ
[2020-04-11] MEDS: LOSARTAN POTASSIUM 50 MG TABLET PO SCH ×2 (09:17→20:15)
[2020-04-11] MEDS: FAMOTIDINE 20 MG/2 ML VIAL IV SCH ×2 (09:17→20:13)
[2020-04-11] MEDS ORDERED: LIDOCAINE 5% 30 GM TUBE (for wound healing center only) TOP SCH (12:00)
[2020-04-11] MEDS: LIDOCAINE 4% PATCH TD SCH (13:35)
[2020-04-11] MEDS ORDERED: ENOXAPARIN 40 MG/0.4 ML SQ SCH (17:00)
[2020-04-11] MEDS ORDERED: ATORVASTATIN 10 MG TAB PO SCH (21:00)
--- NOTE | 2020-04-11 21:39 | HP ---
Date of Admission: 04/10/2020 Chief Complaint: Back pain, leg pain. History Of Present Illness: This is a 74-year-old female patient who came into emergency room with a severe pain in her left lower back, left buttock, and left lower leg in the area between her left kn ee and foot. The patient reports that her pain is more or less constant, but it tends to get worse a nytime she tries to move or get out of bed or walk and she describes as stabbing type of pain. No fa ll. No injury. She came into emergency room 2 different times beginning of this month and then on 0 03/30/2020, when she came in third time to the emergency room, she was admitted to the hospital. With all these multiple visits to the emergency room in hospital, she had multiple testing done including x-ray, CAT scan, and MRI and all those results reviewed. No special imaging done during this fourth trip to emergency room. She was admitted to the hospital on 03/30/2020 and was discharged on 2019. Please see [facility] hospital's H and P and discharge summary for more details. She was given IV s teroid during last hospital stay and was discharged to go home with oral tapering dose of steroid, wh ich she would have finished yesterday. She did see Dr. Monreal as suggested and reports that is waiting for insurance approval to get started on injection treatment. Meanwhile, she ends up in the emergency room with this worsening pain again and was admitted to the hospital as she was not able to go home with this intense pain. Her pain has improved after we started her on IV steroid th erapy. Allergies: NO KNOWN ALLERGIES. Medications: Atorvastatin 10 mg daily, aspirin 81 mg daily, losartan 100 mg daily, and she was presc ribed Celebrex, which she has not started yet. Review of Systems: Musculoskeletal: As mentioned above. All other systems reviewed and negative. Past Medical History: Impaired hearing, hypertension, hyperlipidemia, osteoarthritis at multiple sit es, and lumbar radiculopathy. Past Surgical History: Appendectomy, hysterectomy, bladder suspension. Family History: Mother of heart disease. Physical Examination: Vital Signs: Temperature 97.4, pulse 67, respiratory rate 16, blood pressure 148/68, oxygen saturati on 96%, height 5 feet 3 inches, weight 147 pounds. General: Awake, alert, oriented, not in distress. HEENT: Head atraumatic, normocephalic. Conjunctivae nonerythematous. Sclerae white. Mouth, no thr ush or edema noted. Ears/Nose, no mass, lesion, discharge noted. Neck: Supple. No JVD, lymph nodes, bruit, thyromegaly noted. Lungs: Bilateral good equal air entry. Clear to auscultation. No rhonchi. No rales. Heart: Normal heart sounds, no murmur or gallop. Abdomen: Soft, bowel sounds normal. No guarding, rigidity, tenderness, mass, hepatosplenomegaly, dis tention, or bruit noted. Extremities: No leg edema. No calf tenderness. Skin: No rash, ulcer, cellulitis. Lymphatics: No lymph node enlargement in neck, supraclavicular, infraclavicular region. Neuro: No focal neurological deficit. Chest: Unremarkable. External Genitalia: Deferred. Rectal: Deferred. Laboratory Data: Yesterday white count 9.2, hemoglobin 13.8, platelets 176. Today white count 8.8, hemoglobin 13.5, platelets 177. Yesterday, sodium 143, potassium 3.6, chloride 112, bicarb 24, BUN 2 0, creatinine 0.75, glucose 94. Liver function tests unremarkable. Today, sodium 140, potassium 4.9 , chloride 109, bicarb 27, BUN 18, creatinine 0.57, glucose 135. Urinalysis; trace blood, trace leuk ocyte esterase, otherwise. MRI of lumbar spine from 03/31/2020 showing scoliosis, lumbar spondylosis , and bulging disk. Other outpatient workup done so far included x-ray of lumbar spine and SI joint from 12/22/2019 showi ng degenerative joint disease. CAT scan of the pelvis from the 03/28/2020 showing mild osteoarthriti s of bilateral hips and diverticulosis and CAT scan of lumbar spine from 03/28/2020 showing moderate spondylosis. Impression: 1.Lumbar radiculopathy. 2.Osteoarthritis, multiple sites. 3.Hypertension. 4.Hyperlipidemia. 5.Impaired fasting. Plan: We will admit the patient to hospital for further evaluation and management of this problem. The patient is appropriate for observation. We will continue pain medication per order. I also gave her IV steroid per order. DVT prophylaxis will be given using Lovenox. Home medications will be co ntinued per order. I had a long discussion with the patient today regarding further management. Tracey miller is her fourth trip to emergency room and second admission to the hospital this month for similar co mplaint and unfortunately her pain gets intense enough that she is not able to manage it at home. Du dileep last hospital stay, I had a discussion with her and her daughter and today also I had a long dis cussion with her regarding further plan of treatment. She already has seen pain management physician and we did talk about 2 options today; one is to go back to see Pain Management physician. Other op tion is to get opinion from a neurosurgeon. I do not believe that there is any need for surgical int ervention but would be nice to get opinion from a neurosurgeon. At this point, when I was talking to her, she informed me that she did not really want to see any neurosurgeon and she would like to go a head and have a followup with Pain Management doctor to see if they can help her with some injection. She does not feel comfortable going home today. She would like to continue to receive IV steroid t herapy until tomorrow and that probably go home with oral steroid therapy tomorrow, and she is hoping to have pain management physician's injection treatment this week. I will call her daughter and hien cadet to her as well. AYANA/CIRO Voice ID: [id number]
[2020-04-12] MEDS: METHYLPREDNISOLONE 125 MG INJ IV SCH ×2 (05:40)
[2020-04-12] MEDS: MORPHINE 2 MG/ML SYR IV PRN (05:45)
[2020-04-12] MEDS: LIDOCAINE 4% PATCH TD SCH (09:00)
[2020-04-12] MEDS: FAMOTIDINE 20 MG/2 ML VIAL IV SCH (09:00)
[2020-04-12] MEDS: LOSARTAN POTASSIUM 50 MG TABLET PO SCH (09:00)
[2020-04-12 09:14] VITALS: O2SAT 97
[2020-04-12 09:23] VITALS: BP 145/76; TEMP 98
--- NOTE | 2020-04-13 05:22 | DS ---
Date of Discharge: 04/12/2020 Disposition: Discharged to go home. Physical Examination: HEENT: Unremarkable. Lungs: Clear to auscultation. Heart: Sounds normal. Abdomen: Soft. Bowel sounds normal. No guarding, rigidity, tenderness, distention. Extremities: No leg edema. Neuro: No focal neurological deficits. Laboratory Data: Upon admission on 04/10/2020; white count 9.2, hemoglobin 13.8, platelets 176. Sod ium 143, potassium 3.6, chloride 112, bicarb 24, BUN 20, creatinine 0.75, glucose 94. Liver function test unremarkable. Hospital Course: A 74-year-old pleasant female patient, admitted to the hospital with back pain and leg pain. Please see dictated H and P for more information. After the patient was admitted to the ospital, she was given IV steroid, pain medications. Overall, her pain came under better control. S he has low-grade continuous pain, but it was lot more intense with any attempt to change position or try to move around that intense pain has been brought under control with medications. I did talk to her today and yesterday in great detail. She was not sure about seeing a neurosurgeon as I suggested to get opinion from neurosurgeon to see if there is any surgical intervention can be provided or she will need to continue to follow up with the Pain Management physician. Yesterday, she informed me t hat she did not want to have any surgery and wanted to continue to follow up with Pain Management wallace miguel and today she told me that she would like to get opinion from neurosurgeon as I have recommend ed, so my office already has initiated this process of referring her to neurosurgeon in [place] and she will also keep her appointment with Dr. Monreal in [place] for pain management. I did contact the patient's daughter and all the details were discussed with her and daughter was advised to go wit h the patient at time of her appointment with neurosurgeon and take CT with all the necessary x-ray, CAT scan, and MRI films with them. Final Diagnoses: 1.Lumbar radiculopathy. 2.Osteoarthritis, multiple sites. 3.Hypertension. 4.Hyperlipidemia. 5.Impaired fasting glucose. Discharge Medications And Instructions: 1.Continue all prior home medications. 2.Prednisone 10 mg tablet, take 3 tablets daily for 3 days, then 2 tablets daily for 3 days, then 1 tablet daily for 3 days, then stop. AYANA/MODL Voice ID: [id number] Report ID: [id number]
== END 2020-04-12 09:41 | disposition home or self-care (01) | DRG 552 ==
LOC: ER 15:28 → ERHOLD 17:25 → 2ND 19:46 → OBSVTOIN 04-12 09:17
PROVIDERS: ADMIT Internal Medicine; ATTEND Internal Medicine
DX: M54.16 Radiculopathy, lumbar region (principal); I10 Essential (primary) hypertension; E78.5 Hyperlipidemia, unspecified; M19.90 Unspecified osteoarthritis, unspecified site
CPT/HCPCS: 36415; 80048; 80053; 81003; 85025; 87086; 87088; 99285; G0378; J0696; J1100; J1170; J2270; J2405; J2930; J7030

== ENCOUNTER 2020-05-02 17:12 | Emergency (ER) | payer OTHER ==
--- OUTSIDE RECORDS SUMMARY | 2020-05-02 17:14 | XMS REPORT | Clinical Summary ---
:1945 Author Organization [facility] Address [address] [place] [address] Care Team Providers Name Role Phone Rosalee [...] Not on file Results Not on fileafter 05/02/2019 Insurance Payer Benefit Plan / Group Subscriber ID Type Phone A ddress MEDICARE MEDICARE A B xxxxxxxxxx Medicare AETNA - MGD CARE AETNA INDEMNITY NON CONTR xxxxxxxxx Comm Advance Directives For more information, please contact:[place] [address] [address] [place], [place] [phone] Code Status Date Activated Date Inactivated Comments Full Code 09/28/2016 5:51 AM 09/29/2016 6:27 PM This code status was determined by: Patient
--- OUTSIDE RECORDS SUMMARY | 2020-05-02 17:14 | XMS REPORT | Continuity of Care Document ---
:1945 Author Organization [facility] Address [address] [place] [address] Care Team Providers Name Role Phone Keara Resendez Primary Care Physician Unavailable Shiloh PRUITT, L Attending Clinician Problems Condition Condition Condition Status Onset Resolution Last Treating Co mments Source Name Details Category Date Date Treatment Clinician Date Acute deep Acute deep Disease Active Overview : [place] vein vein 01-19 Following [facility] thrombosis thrombosis 00:00: varicose st (DVT) of (DVT) of 00 vein proximal proximal stripping vein of vein of in left lower left lower 09/2016. extremity extremity Complicat ed by PE. Treated for 3 months with Xarelto Primary Primary Disease Active [place] osteoarthr osteoarthr 01-19 Me thodi itis itis [...] i both lower both lower 00:00: [facility] 00 s s Osteopenia Osteopenia Disease Active [place] 03-07 [facility] 00:00: st 00 Knee pain Knee pain Disease Active [facility] 03-07 [facility]i 00:00: st 00 HLD HLD Disease Active [place] (hyperlipi (hyperlipi 03-07 Me thodi demia) demia) 00:00: st 00 Bilateral Bilateral Disease Active Overview: [place] hearing hearing 03-07 Severe [facility]i loss loss [...] Stop Date Source Natural mother Heart failure [facility] Natural mother Other [facility] thodist Other Hypertension [facility] od[facility] Social History Social Habit Start Date Stop Date Quantity Comments Source Sex Assigned At [facility] Alcohol intake 2017-04-30 2017-04-[address] [facility] thodist 00:00:00 00:00:00 non-drinker of alcohol (finding) Smoking Status Start Date Stop Date Source Never smoker [facility] t Medications Ordered Filled Start Stop [...] 00:00:00 SCAN] Future Scheduled 2008 65+ PNEUMOCOCCAL [facility] Test 00:00:00 VACCINE (1 of 2 - PCV13) [code = 65+ PNEUMOCOCCAL VACCINE (1 of 2 - PCV13)] Future Scheduled 1993 SHINGLES VACCINES (#1) [facility] Test 00:00:00 [code = SHINGLES VACCINES (#1)] Encounters Start End Encounter Admission Attending Care Care Encounter Source Date/Time Date/Time Type Type Clinicians Facility Department ID 2020-03-19 2020-03-19 Refill [facility] [id number] 00:00:00 00:00:00 [facility] [id number] Surgical [id number] Specialti [id number] es [address] 2020-01-26 2020-01-26 [facility] [id number] 15:14:00 23:59:00 Encounter [facility] [id number] Surgical [id number] Specialti [id number] es [address] 2020-01-26 2020-01-26 Office [facility] [id number] 14:48:16 15:42:05 Visit [facility] [id number] Surgical [id number] Specialti [id number] es [address] Results This patient has no known results.
--- OUTSIDE RECORDS SUMMARY | 2020-05-02 17:14 | XMS REPORT | Clinical Summary ---
:1945 Author Organization [facility] Address [address] [place] [address] Care Team Providers Name Role Phone MD [...] INFLUENZA VACCINE Discontinued Results Not on fileafter 05/02/2019 Insurance Payer Benefit Plan / Subscriber ID Effective Dates Phone Addre ss Type Group MEDICARE MEDICARE PART A AND xxxxxxxxxx 2008-[facility] [place] Medicare B t AETNA [facility] x[facility] 2000-Presen Indemnity INDEMNITY t Advance Directives For more information, please contact: [phone] Type Date Recorded Patient Enrollment Specialist Explanati on Advance Directives, Living Will and Medical Power of [employer]
[2020-05-02] MEDS ORDERED: FENTANYL CITR 100 MCG/2 ML ONE (18:32)
[2020-05-02] MEDS ORDERED: DIAZEPAM 2 MG TABLET ONE (18:32)
[2020-05-02] MEDS ORDERED: dexAMETHasone 10 MG/ML VIAL ONE (18:33)
[2020-05-02] MEDS ORDERED: NA CHLORIDE 0.9% 1,000 ML ONE (18:33)
[2020-05-02] MEDS ORDERED: ONDANSETRON 4 MG/2 ML VIAL ONE (18:33)
[2020-05-02 18:58] LABS: Absolute Lymphocytes (CBC) 1.8 K/uL (0.7-4.9); Basophils % 0.3 % (0-1.3); Hematocrit 39.5 % (36.0-45.0); Lymphocytes % 30.2 % (15.3-44.8); MPV 8.6 fL (7.6-11.3); RBC Red Blood Cell Count 4.75 M/uL (3.86-4.86)
[2020-05-02 19:15] LABS: Bilirubin Total 0.9 mg/dL (0.2-1.0); Potassium 3.4 mmol/L (3.5-5.1); Protein, Total 7.3 g/dL (6.4-8.2)
[2020-05-02 19:46] LABS: Urine Blood TRACE (NEG); Urine Glucose NEGATIVE (NEG); Urine Protein NEGATIVE (NEG); Urine pH 8.5 (5.0-7.0)
--- NOTE | 2020-05-02 20:07 | ER ---
Nurse's Notes [facility] Name: Rosario Randhawa Age: 74 yrs Sex: Female : 1945 Arrival Date: 05/02/2020 Time: 17:13 Bed 7 Private MD: Diagnosis: Sciatica, left side;Low back pain;Urinary tract infection, site not specified Presentation: 05/02 17:23 Chief complaint: Severe low back pain that radiates to left hip and leg. Hx of hb sciatica. Coronavirus screen: At this time, the client does not indicate any symptoms associated with coronavirus-19. Ebola Screen: No symptoms or risks identified at this time. Initial Sepsis Screen: Does the patient meet any 2 criteria? No. Patient's initial sepsis screen is negative. Does the patient have a suspected source of infection? No. Patient's initial sepsis screen is negative. Risk Assessment: Do you want to hurt yourself or someone else? Patient reports no desire to harm self or others. Onset of symptoms was May 01, 2020. 17:23 Method Of Arrival: Wheelchair hb 17:23 Acuity: JOSE 3 hb Historical: - Allergies: 17:27 "sensitive to anything that makes some drowsy"; hb - Home Meds: 17:27 atorvastatin 10 mg Oral tab 1 tab once daily [Active]; losartan 100 mg Oral tab 1 tab hb once daily [Active]; 18:07 Celebrex 50 mg Oral cap [Active]; ll2 - PMHx: 17:27 High Cholesterol; Arthritis; Hypertension; hb - PSHx: 17:27 None; hb - Immunization history:: Adult Immunizations up to date. - Social history:: Smoking status: Patient denies any tobacco usage or history of. - Family history:: not pertinent. Screenin:34 Abuse screen: Denies threats or abuse. Nutritional screening: No deficits noted. ll1 Tuberculosis screening: No symptoms or risk factors identified. Fall Risk Ambulatory Aid- Crutches/Cane/Walker (15 pts). Gait- Weak (10 pts.). Total Trevino Fall Scale indicates Low Risk Score (25-44 pts). Fall prevention measures have been instituted. Side Rails Up X 2 Frequent Obs/Assesments occuring As available Patient and Family Educated on Fall Prevention Program and strategies. Assessment: 17:28 Reassessment: Daughter in law [phone]. hb 17:33 General: Appears uncomfortable, Behavior is calm, cooperative. Pain: Complains of pain ll1 in Left leg Quality of pain is described as aching. Neuro: No deficits noted. Cardiovascular: No deficits noted. Respiratory: No deficits noted. Musculoskeletal: Circulation, motion, and sensation intact. Capillary refill < 3 seconds, Range of motion: intact in all extremities, Reports pain in L leg. 18:15 Reassessment: elevated BP noted, and reassessed. ERD at bedside. ll2 18:45 Reassessment: Pt requested for PCP be notified of her pain and visit today. ll2 18:54 Reassessment: Patient and/or family updated on plan of care and expected duration. Pain ll2 level reassessed. Patient is alert, oriented x 3, equal unlabored respirations, skin warm/dry/pink. pillows used to reposition patient for more comfort and decreased pain. Vital Signs: 17:23 BP 142 / 103; Pulse 88; Resp 16; Temp 97.8; Pulse Ox 100% on R/A; Weight 72.57 kg; hb Height 5 ft. 3 in. (160.02 cm); Pain 9/10; 18:09 BP 187 / 108; Pulse 80; Resp 18; Temp 98; Pulse Ox 100% on R/A; Pain 10/10; ll2 19:00 BP 175 / 80; Pulse 64; Resp 16; Pulse Ox 99% on R/A; rv 20:00 BP 167 / 87; Pulse 57; Resp 16; Pulse Ox 98% ; rv 21:00 BP 147 / 89; Pulse 62; Resp 17; Temp 98; Pulse Ox 99% on R/A; rv 17:23 Body Mass Index 28.34 (72.57 kg, 160.02 cm) hb ED Course: 17:13 Patient arrived in ED. ds1 17:26 Triage completed. hb 17:27 Arm band placed on. hb 17:32 Gen Hancock RN is Primary Nurse. ll1 17:35 Bed in low position. Call light in reach. Side rails up X 1. ll1 17:42 Tao Coleman MD is Attending Physician. kandice 18:02 Primary Nurse role handed off by Gen Hancock, JANNA ll2 18:02 Sonja Macias RN is Primary Nurse. ll2 18:03 Warm blanket given. Head of bed. ll2 18:45 Inserted saline lock: 20 gauge in right antecubital area, using aseptic technique. ll2 19:27 Pulse ox on. NIBP on. Door closed. Lights dimmed. ll2 20:05 Ignacia Cooper MD is Referral Physician. kandice 20:05 Conrad Monreal DO is Referral Physician. [facility] 21:00 No provider procedures requiring assistance completed. IV discontinued, intact, rv bleeding controlled, No redness/swelling at site. Pressure dressing applied. Administered Medications: 18:44 Drug: Zofran (Ondansetron) 4 mg Route: IVP; Site: right antecubital; ll2 21:00 Follow up: Response: No adverse reaction rv 18:44 Drug: Decadron - Dexamethasone 10 mg Route: IVP; Site: right antecubital; ll2 21:36 Follow up: Response: No adverse reaction rv 18:44 Drug: Valium 2 mg Route: PO; ll2 21:36 Follow up: Response: No adverse reaction rv 18:45 Drug: NS 0.9% 1000 ml Route: IV; Rate: 125 ml/hr; Site: right antecubital; ll2 21:37 Follow up: IV Status: Completed infusion; IV Intake: 200ml rv 18:45 Drug: fentaNYL (PF) 25 mcg Route: IVP; Site: right antecubital; ll2 21:00 Follow up: Response: No adverse reaction; RASS: Alert and Calm (0) rv 19:26 Drug: fentaNYL (PF) 25 mcg Route: IVP; Site: right antecubital; ll2 21:00 Follow up: Response: No adverse reaction; RASS: Alert and Calm (0) rv 20:30 Drug: Rocephin 1 grams Route: IV; Rate: per protocol; Site: right antecubital; rv 21:00 Follow up: Response: No adverse reaction; IV Status: Completed infusion rv 21:37 Not Given (Patient Refused): Valium 2 mg PO once rv 21:37 Not Given (Patient Refused): fentaNYL (PF) 25 mcg IVP once; RASS on ADMIN: Combtv4, rv Very Agttd3, Agttd2, Rstlss1, AlertClm0, Drwsy-1, Lt Sdtn-2, Mod Sdtn-3, Dp Sdtn-4, UnArsble-5 Intake: 21:37 IV: 200ml; Total: 200ml. rv Outcome: 20:06 Discharge ordered by . kandice 20:33 Patient left the ED. mw2 21:38 Discharged to home via wheelchair. rv 21:38 Condition: good 21:38 Discharge instructions given to patient, Instructed on discharge instructions, follow up and referral plans. medication usage, Demonstrated understanding of instructions, follow-up care, medications, Prescriptions given X 4. Signatures: Tao Coleman MD MD cha Sanford, Demi ds1 Eleonora Cho, RN RN Nevaeh Boyle mw2 Jordi Oneal, RN RN Sonja Macias, RN RN ll2 Gen Hancock RN RN ll1
--- NOTE | 2020-05-02 20:07 | EDPHYS ---
Physician Documentation [facility] Name: Rosario Randhawa Age: 74 yrs Sex: Female : 1945 Arrival Date: 05/02/2020 Time: 17:13 Bed 7 Private MD: ED Physician Tao Coleman HPI: 05/02 18:20 This 74 yrs old Female presents to ER via Wheelchair with complaints of kandice Sciatic Pain. 18:20 The patient presents with pain that is acute, that is chronic, with no known mechanism kandice of injury. The symptoms are located in the low back. The pain radiates to the left low back. The problem was sustained from unknown cause. Onset: The symptoms/episode began/occurred 3 day(s) ago. Modifying factors: The patient symptoms are alleviated by remaining still, the patient symptoms are aggravated by any movement, bending, coughing, lifting, movement. Associated signs and symptoms: The patient has no apparent associated signs or symptoms. Severity of symptoms: At their worst the symptoms were mild, moderate, in the emergency department the symptoms are unchanged. The patient has experienced similar episodes in the past, multiple times. Historical: - Allergies: 17:27 "sensitive to anything that makes some drowsy"; hb - Home Meds: 17:27 atorvastatin 10 mg Oral tab 1 tab once daily [Active]; losartan 100 mg Oral tab 1 tab hb once daily [Active]; 18:07 Celebrex 50 mg Oral cap [Active]; ll2 - PMHx: 17:27 High Cholesterol; Arthritis; Hypertension; hb - PSHx: 17:27 None; hb - Immunization history:: Adult Immunizations up to date. - Social history:: Smoking status: Patient denies any tobacco usage or history of. - Family history:: not pertinent. ROS: 18:20 Constitutional: Negative for fever, chills, and weight loss, Eyes: Negative for injury, kandice pain, redness, and discharge, ENT: Negative for injury, pain, and discharge, Neck: Negative for injury, pain, and swelling, Cardiovascular: Negative for chest pain, palpitations, and edema, Respiratory: Negative for shortness of breath, cough, wheezing, and pleuritic chest pain, Abdomen/GI: Negative for abdominal pain, nausea, vomiting, diarrhea, and constipation, : Negative for injury, bleeding, discharge, and swelling, MS/Extremity: Negative for injury and deformity, Skin: Negative for injury, rash, and discoloration, Neuro: Negative for headache, weakness, numbness, tingling, and seizure, Psych: Negative for depression, anxiety, suicide ideation, homicidal ideation, and hallucinations, Allergy/Immunology: Negative for hives, rash, and allergies, Endocrine: Negative for neck swelling, polydipsia, polyuria, polyphagia, and marked weight changes, Hematologic/Lymphatic: Negative for swollen nodes, abnormal bleeding, and unusual bruising. 18:20 Back: Positive for decreased range of motion, pain at rest, pain with movement. Exam: 18:20 Constitutional: This is a well developed, well nourished patient who is awake, alert, kandice and in no acute distress. Head/Face: Normocephalic, atraumatic. Eyes: Pupils equal round and reactive to light, extra-ocular motions intact. Lids and lashes normal. Conjunctiva and sclera are non-icteric and not injected. Cornea within normal limits. Periorbital areas with no swelling, redness, or edema. ENT: Nares patent. No nasal discharge, no septal abnormalities noted. Tympanic membranes are normal and external auditory canals are clear. Oropharynx with no redness, swelling, or masses, exudates, or evidence of obstruction, uvula midline. Mucous membranes moist. Neck: Trachea midline, no thyromegaly or masses palpated, and no cervical lymphadenopathy. Supple, full range of motion without nuchal rigidity, or vertebral point tenderness. No Meningismus. Chest/axilla: Normal chest wall appearance and motion. Nontender with no deformity. No lesions are appreciated. Cardiovascular: Regular rate and rhythm with a normal S1 and S2. No gallops, murmurs, or rubs. Normal PMI, no JVD. No pulse deficits. Respiratory: Lungs have equal breath sounds bilaterally, clear to auscultation and percussion. No rales, rhonchi or wheezes noted. No increased work of breathing, no retractions or nasal flaring. Abdomen/GI: Soft, non-tender, with normal bowel sounds. No distension or tympany. No guarding or rebound. No evidence of tenderness throughout. Skin: Warm, dry with normal turgor. Normal color with no rashes, no lesions, and no evidence of cellulitis. Neuro: Awake and alert, GCS 15, oriented to person, place, time, and situation. Cranial nerves II-XII grossly intact. Motor strength 5/5 in all extremities. Sensory grossly intact. Cerebellar exam normal. Normal gait. Psych: Awake, alert, with orientation to person, place and time. Behavior, mood, and affect are within normal limits. 18:20 Back: pain, that is mild, that is moderate, ROM is painful, with rotation to the right, with rotation to the left, with flexion, with extension, normal spinal alignment noted, CVA tenderness, is absent, vertebral tenderness, is not appreciated, muscle spasm, is appreciated in the left low back, left mid back, right mid back and right low back. 20:02 Musculoskeletal/extremity: DVT Exam: No signs of deep vein thrombosis. no pain, no kandcie swelling, no tenderness, negative Homans' sign noted on exam, no appreciated bluish discoloration, no erythema, no increased warmth. 20:03 Skin: no rash present. [facility] Vital Signs: 17:23 BP 142 / 103; Pulse 88; Resp 16; Temp 97.8; Pulse Ox 100% on R/A; Weight 72.57 kg; hb Height 5 ft. 3 in. (160.02 cm); Pain 9/10; 18:09 BP 187 / 108; Pulse 80; Resp 18; Temp 98; Pulse Ox 100% on R/A; Pain 10/10; ll2 19:00 BP 175 / 80; Pulse 64; Resp 16; Pulse Ox 99% on R/A; rv 20:00 BP 167 / 87; Pulse 57; Resp 16; Pulse Ox 98% ; rv 21:00 BP 147 / 89; Pulse 62; Resp 17; Temp 98; Pulse Ox 99% on R/A; rv 17:23 Body Mass Index 28.34 (72.57 kg, 160.02 cm) hb MDM: 17:43 Patient medically screened. [facility] 18:23 Differential diagnosis: arthritis, strain, sciatica, Herniated disc UTI. Data reviewed: [facility] vital signs, nurses notes, lab test result(s), radiologic studies. Data interpreted: school bus monitor: rate is 80 beats/min, Pulse oximetry: on room air is 100 %. Test interpretation: by ED physician or midlevel provider: plain radiologic studies. Counseling: I had a detailed discussion with the patient and/or guardian regarding: the historical points, exam findings, and any diagnostic results supporting the discharge/admit diagnosis, lab results, radiology results, the need for outpatient follow up, for definitive care, a neurosurgeon. 05/02 18:15 Order name: CBC with Diff; Complete Time: 19:47 [facility] 05/02 18:15 Order name: Comprehensive Metabolic Panel; Complete Time: 19:47 [facility] 05/02 19:36 Order name: Urine Dipstick--Ancillary (enter results) 2 05/02 19:37 Order name: Urine Dipstick-Ancillary [facility] 05/02 19:39 Order name: Urine Culture [facility] 05/02 18:15 Order name: Urine Dipstick-Ancillary (obtain specimen); Complete Time: 21:38 [facility] 05/02 19:47 Order name: PO challenge: orange juice; Complete Time: 21:37 [facility] Administered Medications: 18:44 Drug: Zofran (Ondansetron) 4 mg Route: IVP; Site: right antecubital; ll2 21:00 Follow up: Response: No adverse reaction rv 18:44 Drug: Decadron - Dexamethasone 10 mg Route: IVP; Site: right antecubital; ll2 21:36 Follow up: Response: No adverse reaction rv 18:44 Drug: Valium 2 mg Route: PO; ll2 21:36 Follow up: Response: No adverse reaction rv 18:45 Drug: NS 0.9% 1000 ml Route: IV; Rate: 125 ml/hr; Site: right antecubital; ll2 21:37 Follow up: IV Status: Completed infusion; IV Intake: 200ml rv 18:45 Drug: fentaNYL (PF) 25 mcg Route: IVP; Site: right antecubital; ll2 21:00 Follow up: Response: No adverse reaction; RASS: Alert and Calm (0) rv 19:26 Drug: fentaNYL (PF) 25 mcg Route: IVP; Site: right antecubital; ll2 21:00 Follow up: Response: No adverse reaction; RASS: Alert and Calm (0) rv 20:30 Drug: Rocephin 1 grams Route: IV; Rate: per protocol; Site: right antecubital; rv 21:00 Follow up: Response: No adverse reaction; IV Status: Completed infusion rv 21:37 Not Given (Patient Refused): Valium 2 mg PO once rv 21:37 Not Given (Patient Refused): fentaNYL (PF) 25 mcg IVP once; RASS on ADMIN: Combtv4, rv Very Agttd3, Agttd2, Rstlss1, AlertClm0, Drwsy-1, Lt Sdtn-2, Mod Sdtn-3, Dp Sdtn-4, UnArsble-5 Disposition: 05/02/20 20:06 Discharged to Home. Impression: Sciatica, left side, Low back pain, Urinary tract infection, site not specified. - Condition is Stable. - Discharge Instructions: Back Pain, Adult, Dysuria, Musculoskeletal Pain, Sciatica, Urinary Tract Infection, Adult, Urinary Tract Infection, Adult, [id number]-[id number], Back Pain, Adult, Dgul-sa-Egad. - Prescriptions for dexamethasone 2 mg Oral tablet - take 1 tablet by ORAL route 2 times per day; 6 tablet. Cipro 250 mg Oral Tablet - take 1 tablet by ORAL route every 12 hours; 14 tablet. Tylenol- Codeine #3 300-30 mg Oral Tablet - take 1 tablet by ORAL route every 4 hours As needed; 20 tablet. Valium 2 mg Oral Tablet - take 1 tablet by ORAL route every 8 hours As needed; 20 tablet. - Medication Reconciliation Form, Thank You Letter, Antibiotic Education, Prescription Opioid Use form. - Follow up: Ignacia Cooper MD; When: 2 - 3 days; Reason: Recheck today's complaints, Continuance of care, Re-evaluation by your physician. Follow up: Conrad Monreal DO; When: 2 - 3 days; Reason: Recheck today's complaints, Continuance of care, Re-evaluation by your physician. - Problem is new. - Symptoms have improved. Signatures: Dispatcher [employer] EDMS Tao Coleman MD MD cha Baxter, Heather RN RN Nevaeh Boyle mw2 Jordi Oneal RN RN Sonja Macias RN RN ll2 Corrections: (The following items were deleted from the chart) 20:33 20:06 05/02/2020 20:06 Discharged to Home. Impression: Sciatica, left side; Low back mw2 pain; Urinary tract infection, site not specified. Condition is Stable. Forms are Medication Reconciliation Form, Thank You Letter, Antibiotic Education, Prescription Opioid Use. Follow up: Ignacia Cooper; When: 2 - 3 days; Reason: Recheck today's complaints, Continuance of care, Re-evaluation by your physician. Follow up: Conrad Monreal; When: 2 - 3 days; Reason: Recheck today's complaints, Continuance of care, Re-evaluation by your physician. Problem is new. Symptoms have improved. kandice
[2020-05-02] MEDS ORDERED: CEFTRIAXONE/SWI 1gm 1 GM/10 ML SYR ONE (20:29)
[2020-05-02 20:38] VITALS: O2SAT 100
[2020-05-02 20:39] VITALS: BP 187/108; TEMP 98
== END 2020-05-02 20:33 | disposition home or self-care (01) ==
LOC: ER 17:12
DX: M54.32 Sciatica, left side (principal); N39.0 Urinary tract infection, site not specified; I10 Essential (primary) hypertension; E78.00 Pure hypercholesterolemia, unspecified
CPT/HCPCS: 96365; 96361; 87088; 85025; 87086; 36415; 81003; 80053; 96375; 99284; J3010; J1100; J0696; J7030; J2405

== ENCOUNTER 2020-06-04 07:45 | Emergency (ER) | payer OTHER ==
--- OUTSIDE RECORDS SUMMARY | 2020-06-04 07:47 | XMS REPORT | Clinical Summary ---
:1945 Author Organization [facility] Address [address] [place] [address] Care Team Providers Name Role Phone MD [...] Essential hypertension 03/07/2016 Impaired fasting glucose 03/07/2016 Surgical History Surgery Date Site/Laterality Comments BLADDER SUSPENSION 10/18/2014 - 11/17/2014 HYSTERECTOMY 08/20/1978 - 08/19/1979 WISDOM TOOTH EXTRACTION 08/20/1962 - 08/19/1963 APPENDECTOMY 08/20/1954 - 08/19/1955 Medical History Medical History Date Comments Hyperlipidemia Hypertension [place] (hard of hearing) HEARING AID Arthritis RIGHT KNEE; HANDS; l umbar spine; s/p knee injections Bronchitis 2013 Pneumonia 2012 Varicose veins Cystocele 2012 Prediabetes 01/2015 Vitamin D deficiency Osteopenia 2014 Deafness in left ear History of use of hearing aid in right ear Pulmonary embolism (HCC) Family History Medical History Relation Name Comments [...] (#1) 1993 65+ PNEUMOCOCCAL VACCINE (1 of 1 - PPSV23) 2008 DXA SCAN 08/10/2017 08/10/2015 INFLUENZA VACCINE Discontinued Results Not on fileafter 06/04/2019 Insurance Payer Benefit Plan / Subscriber ID Effective Dates Phone Addre ss Type Group MEDICARE MEDICARE PART A AND [id number] 2008-Rakesh [place] Medicare B t AETNA A[facility]NA [facility] [id number] 2000-Rakesh [place] DUENAS t Advance Directives For more information, please contact: [phone] Type Date Recorded Patient Speech And Language Assistant Explanati on Advance Directives, Living Will and Medical Power of Patternmaker Hand
--- OUTSIDE RECORDS SUMMARY | 2020-06-04 07:47 | XMS REPORT | Clinical Summary ---
:1945 Author Organization [facility] Address [address] [place] [address] Care Team Providers Name Role Phone Rosalee Resendez Keara Primary Care Provider Allergies No Known Allergies Medications Medication Sig [...] Not on file Results Not on fileafter 06/04/2019 Insurance Payer Benefit Plan / Subscriber ID Effective Dates Phone Addre ss Type Group MEDICARE MEDICARE A B [id number] 2008-Present Medicare AETNA - MGD CARE AETNA INDEMNITY [id number] 2013-Present Comm NON CONTR Advance Directives For more information, please contact: [phone] Code Status Date Activated Date Inactivated Comments Full Code 09/28/2016 5:51 AM 09/29/2016 6:27 PM This code status was determined by: Patient
--- OUTSIDE RECORDS SUMMARY | 2020-06-04 07:48 | XMS REPORT | Summary of Care ---
:1945 Author Organization [facility] - [facility] Address [address] [place] [address] Care Team Providers Name Role Phone Pcp, Does Not Have A Primary Care Provider Ron Cooper Unavailable Reason for Visit Reason Comments Hip Pain Sciatic pain Auth/Cert Status Reason Specialty Diagnoses / Referred By Referred To Procedures Contact Contact Emergency Medicine [facility] Em ergency Dept [address] [place] [address] Fax: Encounter Details Date Type Department Care Team Description 06/04/2020 Emergency ADC-Emergency Hossein Phillips DO Acute back pain with Department [address] [facility]. sciatica, left 132 [facility] [address] (Primary Dx) [place], [place] [id number] [place] [address] [id number] Allergies No Known Allergiesdocumented as of this encounter (statuses as of 06/04/2020) Medications Medication Sig Dispensed Refills Start Date End Date Status losartan 100 mg tablet Take 100 mg by 0 Active mouth daily. DICLOFENAC 75 mg EC TAKE 1 TABLET 60 tablet 1 03/22/2020 Active tabletIndications: Pain BY MOUTH TWICE A DAY WITH MEALS methocarbamoL 500 mg Take 1 tablet 15 tablet 0 06/04/2020 1008/2019 Active tabletIndications: by mouth 3 Acute back pain with (three) times sciatica, left daily for 5 days. documented as of this encounter (statuses as of 06/04/2020) Active Problems No known active problemsdocumented as of this encounter (statuses as of 06/04/2020) Social History Tobacco Use Types Packs/Day Years [...] Assigned at Date Recorded Not on file COVID-19 Exposure Response Date Recorded In the last month, have you been in contact with No / Unsure 06/04/2020 5:55 AM CDT someone who was confirmed or suspected to have Coronavirus / COVID-19? documented as of this encounter Last Filed Vital Signs Vital Sign Reading Time Taken Comments Blood Pressure 162/104 06/04/2020 5:50 AM CDT Pulse 90 06/04/2020 5:50 AM CDT Temperature 35.4 C (95.8 F) 06/04/2020 5:50 AM CDT Respiratory Rate 22 06/04/2020 5:50 AM CDT Oxygen Saturation 99% 06/04/2020 5:50 AM CDT Inhaled Oxygen Concentration - - Weight 77.1 kg (170 lb) 06/04/2020 5:58 AM CDT Height 167.6 cm (5' 6") 06/04/2020 5:50 AM CDT Body Mass Index 27.44 06/04/2020 5:50 AM CDT documented in this encounter Discharge Instructions Hossein Wiley DO - 06/04/2020 DIAGNOSIS Diagnoses that have been ruled out: None Diagnoses that are still under consideration: None Final diagnoses: None NO LIFE-THREATENING FINDINGS ON TODAY'S EXAM. PROCEDURES IN THE ER TODAY: No orders of the defined types were placed in this encounter. MEDICATIONS ADMINISTERED IN THE ER TODAY AND DISCHARGE MEDICATIONS: Orders Placed This Encounter Medications DISCONTD: morphine ER (MS CONTIN) 12 hr tablet 15 mg methocarbamoL (ROBAXIN) tablet 500 mg morphine IR (MSIR) tablet 15 mg FOLLOW-UP RECOMMENDATIONS: RECOMMEND FOLLOW-UP WITH A PRIMARY CARE PROVIDER OR SPECIALIST IN 2-5 DAYS, ESPECIALLY IF NO IMPROVEMENT IN SYMPTOMS. MAY FOLLOW-UP WITH A PROVIDER OF YOUR CHOICE, SUCH : 1. A PHYSICIAN OF YOUR CHOICE 2. VIA [facility], . LOCATIONS IN [facility] 3. [facility], [address] [facility], [place], [place]; [phone] OR, IF YOU WISH TO FOLLOW-UP WITHIN THE [facility], MAY TRY THESE OPTIONS (CLINIC APPOINTMENTS AVAILABLE ON ZIRP-EE-OAWU BASIS): 1. SCHEDULE AN APPOINTMENT ONLINE AT [facility] 2. OR CALL THE [facility] ACCESS CENTER AT OR 3. OR CALL YOUR [facility] PHYSICIAN'S OFFICE DIRECTLY IF YOU ARE ALREADY AN ESTABLISHED [facility] PATIENT. RETURN TO ER FOR WORSENING OF SYMPTOMS. documented in this encounter ED Notes Silvana Le RN - 06/04/2020 5:56 AM CDTLeft hip pain and lower back pain. Sees Dr. George for pain management. Brought by [facility]. Hossein Pollack DO - 06/04/2020 5:48 AM CDT EMERGENCY DEPARTMENT ENCOUNTER [facility] Patient Name: Rosario Randhawa Date of : 1945 75 year old Exam Room:TX6/TX6 Primary Care Physician: PATIENT DOES NOT HAVE A PCP Pre- Hospital Patient Escorted by: Self [9] Mode of Arrival: EMS - [facility] [46] EMS Treatment Prior to ED Arrival: Chief Complaint Chief Complaint Patient presents with Hip Pain Sciatic pain HPI Rosario Randhawa is a 75 year old female BIBEMS with chronic back pain that is radiating down the left hip. Pain is rated as severe. Consistent with her previous episodes. Patient has non-traumatic back pain. No hx of IVDA, immunocompromise, fever, saddle signs, or urinary complaints. Nees OP follow-up with Dr. Monreal. Has recent script for 7.5/325mg [place]. Has one pill left. Past Medical History / Immunizations Past Medical History: Diagnosis Date Anxiety Arthritis Hard of hearing HTN (hypertension) Pulmonary embolism Past Surgical History Past Surgical History: Procedure Laterality Date APPENDECTOMY 1954 CYSTOSCOPY 2013 HYSTERECTOMY 1981 PHACOEMULSIFICATION OF CATARACT WITH INTRAOCULAR LENS IMPLANT Right 03/27/2019 Surgeon: Tommy Baptiste MD; Location: [facility] VARICOSE VEIN ABLATION 2014 Allergies No Known Allergies Social History Tobacco Use Never smoked or used smokeless tobacco. Alcohol Use Never. Frequency of alcohol consumption: Never Drug Use Never. Review of Systems Review of Systems Constitutional: Negative for fever. HENT: Positive for hearing loss (chronic). Gastrointestinal: Negative for nausea and vomiting. Genitourinary: Negative for bladder incontinence, dysuria and difficulty urinating. Musculoskeletal: Positive for back pain. Skin: Negative for color change. Neurological: Negative for weakness. Physical Exam BP (!) 162/104 | Pulse 90 | Temp 35.4 C (95.8 F) (Axillary) | Resp 22 | Ht 1.676 m (5' 6") | Wt 77.1 kg (170 lb) | SpO2 99% | BMI 27.44 kg/m Physical Exam Vitals signs and nursing note reviewed. Constitutional: General: She is not in acute distress. Appearance: She is well-developed. She is not diaphoretic. HENT: Head: Normocephalic and atraumatic. Right Ear: External ear normal. Left Ear: External ear normal. Nose: Nose normal. Eyes: General: No scleral icterus. Conjunctiva/sclera: Conjunctivae normal. Pupils: Pupils are equal, round, and reactive to light. Neck: Musculoskeletal: Normal range of motion and neck supple. Cardiovascular: Rate and Rhythm: Normal rate and regular rhythm. Heart sounds: Normal heart sounds. Pulmonary: Effort: Pulmonary effort is normal. Breath sounds: Normal breath sounds. Abdominal: General: Bowel sounds are normal. Palpations: Abdomen is soft. Tenderness: There is no abdominal tenderness. Musculoskeletal: Normal range of motion. General: Tenderness (left lower back) present. Skin: General: Skin is warm and dry. Neurological: Mental Status: She is alert and oriented to person, place, and time. Cranial Nerves: No cranial nerve deficit. Deep Tendon Reflexes: Reflexes are normal and symmetric. Psychiatric: Behavior: Behavior normal. Thought Content: Thought content normal. Labs No results found for this or any previous visit (from the past 24 hour(s)). Imaging No results found for this visit on 06/04/20. Orders and Treatments No orders of the defined types were placed in this encounter. Orders Placed This Encounter Medications DISCONTD: morphine ER (MS CONTIN) 12 hr tablet 15 mg methocarbamoL (ROBAXIN) tablet 500 mg morphine IR (MSIR) tablet 15 mg Procedures See ED Procedure Note Notes & MDM Patient was evaluated for an emergency medical condition related to Hip Pain (Sciatic pain) . Differential diagnoses considered by presenting complaints but not limited to: Sciatic pain, CCS, Epidural abscess. Assessment: Rosario Randhawa is a 75 year old female seeking pain control at hospital that Dr. Monreal has privileges. He does not pull call here. Pain control with MSIR and robaxin here for pain. Home with OP follow-up as she has recurrent symptoms of her typical sciatica. History, physical exam findings, results of visit, differential diagnosis, medication regimens and plan of future care have been considered. Additional MDM may be found in the ED course. Differential diagnosis considered and final disposition made based on information gathered during evaluation and may not be completely ruled out or specifically listed. Vital signs were rechecked before final disposition and determined to be stable. Diagnosis No diagnosis found. Disposition & Follow Up ED Disposition ED Disposition Condition Comment Disch - Home Stable Patient's Medications START taking these medications No medications on file CONTINUE taking these medications which have NOT CHANGED DICLOFENAC 75 MG EC TABLET TAKE 1 TABLET BY MOUTH TWICE A DAY WITH MEALS LOSARTAN 100 MG TABLET Take 100 mg by mouth daily. START taking Modified Medications as Prescribed No medications on file STOP taking these medications No medications on file Contact information for follow-up Conrad Monreal MD Specialty: AN-ANESTHESIOLOGY [id number] [facility] [address] ADC-Emergency Department Specialty: Emergency Medicine [address] [facility] [address] Instructions: If symptoms worsen as documented in the discharge Hossein Phillips DO 06/04/2020 5:55 AM ACTIVE COVID-19 PANDEMIC. documented in this encounter Miscellaneous Notes ED Nurse Note - Silvana Le RN - 06/04/2020 6:25 AM CDTCalled son [place] to come pick patient up. documented in this encounter Plan of Treatment Health Maintenance Due Date Last Done Comments Depression Screening 1955 DTaP,Tdap,and Td Vaccines (1 - Tdap) 1962 Zoster Recombinant Vaccine (SHINGRIX) (1 of 2) 1993 Medicare Wellness Visit 2008 Osteoporosis Screening 2008 PNEUMOCOCCAL VACCINES 65+ (1 of 1 - PPSV23) 2008 INFLUENZA VACCINE (#1) 2020 documented as of this encounter Implants Implanted Type Area Surgical Garment Assembler Device Shelf Model / Identifier Expiration Date Ser ial / Lot Lens, Landen #[id number] - [id number] LENS Right: Landen 07/19/2023 [id number] / Implanted: Qty: 1 on 03/27/2019 by Tommy Baptiste MD at [facility] 1 [id number] / N/A documented as of this encounter Results Not on filedocumented in this encounter Visit Diagnoses Diagnosis Acute back pain with sciatica, left - Pr imary documented in this encounter Administered Medications Medication Order MAR Action Action Date Dose Rate Site methocarbamoL (ROBAXIN) tablet Given 06/04/2020 6:05 AM CDT 500 mg 500 mg 500 mg, Oral, QID, First dose on Sun06/04/20 at 0800, Until Discontinued, Routine morphine IR (MSIR) tablet 15 mg Given 06/04/2020 6:31 AM CDT 15 mg 15 mg, Oral, Q4HPRN, Starting Sun06/04/20 at 0606, Until Discontinued, Routine, Pain (scale 7-10) documented in this encounter Insurance Payer Benefit Plan / Subscriber ID Effective Dates Phone Addre ss Type Group MEDICARE MEDICARE PART A [id number] 2008-Rakesh [phone] [facility] Medicare & B t 82 [id number] KAYLA HIDALGO [address] AETNA AETNA INDEMNITY [id number] 2013-Rakesh oliva documented as of this encounter
--- OUTSIDE RECORDS SUMMARY | 2020-06-04 07:48 | XMS REPORT | Continuity of Care Document ---
:1945 Author Organization [facility] t Address [address] [place] [address] Care Team Providers Name Role Phone Keara Resendez Primary Care Physician Singer RESENDEZ Attending Clinician Shiloh PRUITT, L Attending Clinician Problems Condition Condition Condition Status Onset Resolution Last Treating Co mments Source Name Details Category Date Date Treatment Clinician Date Acute deep Acute deep Disease Active Overview : [place] vein vein 01-19 Following [facility] thrombosis thrombosis 00:00: varicose st (DVT) of (DVT) of 00 vein proximal proximal stripping vein of vein of in left lower left lower 09/2016. extremity extremity Complicat ed by PE. Treated for 3 months with Xarelto Primary Primary Disease Active [place] osteoarthr osteoarthr 01-19 Me thodi itis itis 00:00: st involving involving 00 multiple multiple joints joints Tachycardi Tachycardi Disease Active [facility] SVT SVT Disease Active [facility] (supravent 09-28 Claudette kes - ricular ricular 00:00: Medical tachycardi tachycardi 00 Ce nter a) a) Varicose Varicose Disease [facility] veins of veins of 09 [facility] - bilateral bilateral 00:00: Medi aram lower lower 00 [place] extremitie extremitie s with s with other other complicati complicati ons ons Acute Acute Disease Active [facility] pulmonary pulmonary 2-09 [facility] - embolism embolism 00:00: Medica l 00 Center Pulmonary Pulmonary Disease Active [facility] embolism embolism 09-28 Method i 00:00: st 00 Vitamin D Vitamin D Disease Active [facility] deficiency deficiency 03-07 Me thodi 00:00: st 00 Varicose Varicose Disease Active [place] veins of veins of 03-07 Method i both lower [facility] Osteopenia Osteopenia Disease Active [place] 03-07 [facility] 00:00: st 00 Knee pain Knee pain Disease Active [facility] 03-07 [facility] 00:00: st 00 HLD HLD Disease Active [place] (hyperlipi (hyperlipi 03-07 Me thodi demia) demia) 00:00: st 00 Bilateral Bilateral Disease Active Overview: [place] hearing hearing 03-07 Severe [facility] loss loss [...] Patient H hernan cular ty to Comments) 01-19 not sure Metho di Blockers adverse 00:00: why this st , reaction 00 is Steroida s to hereLoss l drug of appetite, anxious, dperessio n Family History Family Member Diagnosis Comments Start Date Stop Date Source Natural mother Heart failure [facility] Natural mother Other [facility] Me thodist Other Hypertension [place] Meth odist Social History Social Habit Start Date Stop Date Quantity Comments Source Sex Assigned At [place] M ethodist Alcohol intake 2017-04-30 2017-04-30 Current [facility] thodist 00:00:00 00:00:00 non-drinker of alcohol (finding) Smoking Status Start Date Stop Date Source Never smoker [facility] t Medications Ordered Filled Start Stop [...] ical tablet 00 by mouth Center daily. losartan Yes 50mg QD Take [address] (COZAAR) 50 2-10 by mouth Luke [facility] - MG tablet 16:27: daily. Medica l 41 Center atorvastati Yes 10mg QD Take [address] n (LIPITOR) 2-10 by mouth Luke s - 10 MG 16:27: daily. Medical tablet 41 Center Procedures This patient has no known procedures. Plan of Care Planned Activity Planned Date Details Comments Source Future Scheduled 2017-08-10 DXA SCAN [code = DXA [facility] jermaine [facility] Test 00:00:00 SCAN] Future Scheduled 2008 65+ PNEUMOCOCCAL [facility] Test 00:00:00 VACCINE (1 of 1 - PPSV23) [code = 65+ PNEUMOCOCCAL VACCINE (1 of 1 - PPSV23)] Future Scheduled 1993 SHINGLES VACCINES (#1) H hernan [facility] Test 00:00:00 [code = SHINGLES VACCINES (#1)] Encounters Start End Encounter Admission Attending Care Care Encounter Source Date/Time Date/Time Type Type Clinicians Facility Department ID 2020-06-04 2020-06-04 Emergency [facility] [id number] 05:54:00 07:11:00 Hossein Coreas [id number] [place] [id number] Laura [id number] 2020-03-19 2020-03-19 Refill [facility] [id number] 00:00:00 00:00:00 [facility] [id number] Surgical [id number] Specialti [id number] es [address] [place] 2020-01-26 2020-01-26 [facility] [id number] 15:14:00 23:59:00 Encounter [facility] [id number] Surgical [id number] Specialti [id number] es 809 [place] 2020-01-26 2020-01-26 Office [facility] [id number] 14:48:16 15:42:05 Visit [facility] [id number] Surgical [id number] Specialti [id number] es [address] [place] Results This patient has no known results.
[2020-06-04] MEDS ORDERED: MORPHINE 4 MG/ML SYR ONE (08:33)
[2020-06-04] MEDS ORDERED: ONDANSETRON 4 MG/2 ML VIAL ONE (08:33)
[2020-06-04] MEDS ORDERED: FENTANYL CITR 100 MCG/2 ML ONE (10:32)
--- NOTE | 2020-06-04 11:51 | EDPHYS ---
Physician Documentation [facility] Name: Rosario Randhawa Age: 75 yrs Sex: Female : 1945 Arrival Date: 06/04/2020 Time: 07:46 Bed 19 Private MD: ED Physician Benja Choi HPI: 06/04 09:01 This 75 yrs old Female presents to ER via Wheelchair with complaints of Back kdr Pain, Leg Pain. 09:01 The patient presents with pain that is acute, with no known mechanism of injury, that kdr is chronic, with no known mechanism of injury. The symptoms are located in the low back. Onset: The symptoms/episode began/occurred yesterday. 09:02 The pain radiates to the left leg. Associated signs and symptoms: The patient has no kdr apparent associated signs or symptoms. The problem was sustained when bending over. The patient was raking in her yard on Sunday with her family and since then has had increasing pain in her low back and it became particularly worse this morning at 4:00 AM. Historical: - Allergies: 07:55 "sensitive to anything that makes some drowsy"; ss - Home Meds: 07:55 atorvastatin 10 mg Oral tab 1 tab once daily [Active]; Celebrex 50 mg Oral cap ss [Active]; losartan 100 mg Oral tab 1 tab once daily [Active]; celecoxib 100 mg Oral cap 1 cap 2 times per day [Active]; - PMHx: 07:55 Arthritis; High Cholesterol; Hypertension; ss - Immunization history:: Adult Immunizations. - Social history:: Smoking status: Patient denies any tobacco usage or history of. ROS: 09:02 Constitutional: Negative for fever, chills, and weight loss, Eyes: Negative for injury, kdr pain, redness, and discharge, Neck: Negative for injury, pain, and swelling, Cardiovascular: Negative for chest pain, palpitations, and edema, Respiratory: Negative for shortness of breath, cough, wheezing, and pleuritic chest pain, Abdomen/GI: Negative for abdominal pain, nausea, vomiting, diarrhea, and constipation, : Negative for injury, bleeding, discharge, and swelling, MS/Extremity: Negative for injury and deformity, Skin: Negative for injury, rash, and discoloration, Neuro: Negative for headache, weakness, numbness, tingling, and seizure activity. Psych: Negative for depression, anxiety, suicide ideation, homicidal ideation, and hallucinations, Allergy/Immunology: Negative for hives, rash, and allergies, Endocrine: Negative for neck swelling, polydipsia, polyuria, polyphagia, and marked weight changes, Hematologic/Lymphatic: Negative for swollen nodes, abnormal bleeding, and unusual bruising. 09:02 Back: Positive for decreased range of motion. Exam: 09:07 Constitutional: This is a well developed, well nourished patient who is awake, alert, kdr and in moderate distress. Head/Face: Normocephalic, atraumatic. Eyes: Pupils equal round and reactive to light, extra-ocular motions intact. Lids and lashes normal. Conjunctiva and sclera are non-icteric and not injected. Cornea within normal limits. Periorbital areas with no swelling, redness, or edema. Neuro: Awake and alert, GCS 15, oriented to person, place, time, and situation. Cranial nerves II-XII grossly intact. Motor strength 5/5 in all extremities. Sensory grossly intact. Cerebellar exam normal. Normal gait. Psych: Awake, alert, with orientation to person, place and time. Behavior, mood, and affect are within normal limits. 09:07 Back: ROM is painful, decreased, normal spinal alignment noted, vertebral tenderness, is appreciated at L1, L2, L3 and L4, Straight leg raises: Too much pain to attempt. Vital Signs: 07:52 BP 157 / 115; Pulse 88; Resp 22; Temp 97.4(TE); Pulse Ox 99% on R/A; Pain 10/10; ss 09:00 BP 180 / 77; Pulse 80; Resp 20 S; Pulse Ox 100% on R/A; iw 10:24 BP 179 / 84; Pulse 70; Resp 16; Pulse Ox 100% on R/A; iw MDM: 10:22 Data reviewed: vital signs, nurses notes. Counseling: I had a detailed discussion with kdr the patient and/or guardian regarding: the historical points, exam findings, and any diagnostic results supporting the discharge/admit diagnosis, the need for outpatient follow up. Physician consultation: Conrad Monreal DO regarding consult, patient's condition, and will see patient in office, next week. 11:50 Patient medically screened. kdr 11:53 ED course: The patient had her own medications and so none were given here for pain on kdr discharge. Administered Medications: 08:28 Drug: Zofran (Ondansetron) 4 mg Route: IVP; Site: right antecubital; ss 08:45 Follow up: Response: No adverse reaction ss 08:31 Not Given (Other Intervention Used): morphine 4 mg IVP once; RASS on ADMIN: Combtv4, ss Very Agttd3, Agttd2, Rstlss1, AlertClm0, Drwsy-1, Lt Sdtn-2, Mod Sdtn-3, Dp Sdtn-4, UnArsble-5 08:31 Drug: morphine 2 mg Route: IVP; Site: right antecubital; ss 08:45 Follow up: Response: No adverse reaction; No adverse reaction, pain is minimally ss decreased 08:36 Drug: Robaxin 1 grams Route: IVPB; Infused Over: 1 hrs; Site: right antecubital; ss 09:36 Follow up: IV Status: Completed infusion ss 09:30 Drug: morphine 2 mg Route: IVP; Site: right antecubital; ss 09:45 Follow up: Response: No adverse reaction; No change in condition ss 10:23 Drug: fentaNYL (PF) 25 mcg Route: IVP; Site: right antecubital; iw 10:45 Follow up: Response: No adverse reaction ss 11:55 Drug: [place] (7.5 mg-325 mg) 2 tabs Route: PO; ss 12:57 Follow up: Response: Medication administered at discharge. ss Disposition: 06/04/20 11:50 Discharged to Home. Impression: Sciatica, left side. - Condition is Stable. - Discharge Instructions: Sciatica, [id number], Radicular Pain. - Medication Reconciliation Form, Thank You Letter form. - Follow up: Private Physician; When: 2 - 3 days; Reason: If symptoms return, Further diagnostic work-up, Recheck today's complaints, Continuance of care, Re-evaluation by your physician. - Problem is an acute exacerbation. - Symptoms have improved. - Notes: Follow-up with Dr. Cooper or your pain doctor for further evaluation and treatment. Per our discussion, Dr. Cooper would like you to follow-up with the neurosurgeon to obtain definitive care and management of this chronic pain with occasional acute worsening. Signatures: Benja Choi MD MD kdr Brittany Hazel RN RN iw Isha Avendano RN RN ss Corrections: (The following items were deleted from the chart) 12:52 11:50 06/04/2020 11:50 Discharged to Home. Impression: Sciatica, left side. Condition ss is Stable. Forms are Medication Reconciliation Form, Thank You Letter, Antibiotic Education, Prescription Opioid Use. Follow up: Private Physician; When: 2 - 3 days; Reason: If symptoms return, Further diagnostic work-up, Recheck today's complaints, Continuance of care, Re-evaluation by your physician. Problem is an acute exacerbation. Symptoms have improved. kdr
--- NOTE | 2020-06-04 11:51 | ER ---
Nurse's Notes [facility] Name: Rosario Randhawa Age: 75 yrs Sex: Female : 1945 Arrival Date: 06/04/2020 Time: 07:46 Bed 19 Private MD: Diagnosis: Sciatica, left side Presentation: 06/04 07:52 Chief complaint: Patient states: low back pain that radiates down L leg that has been ss ongoing but has gotten much worse since 0400 this morning. Coronavirus screen: Client denies travel out of the [place] in the last 14 days. Ebola Screen: Patient denies exposure to infectious person. Patient denies travel to an Ebola-affected area in the 21 days before illness onset. Initial Sepsis Screen: Does the patient meet any 2 criteria? RR > 20 per min. Does the patient have a suspected source of infection? No. Patient's initial sepsis screen is negative. Risk Assessment: Do you want to hurt yourself or someone else? Patient reports no desire to harm self or others. Onset of symptoms was June 04, 2020. 07:52 Method Of Arrival: Wheelchair ss 07:52 Acuity: JOSE 3 ss Historical: - Allergies: 07:55 "sensitive to anything that makes some drowsy"; ss - Home Meds: 07:55 atorvastatin 10 mg Oral tab 1 tab once daily [Active]; Celebrex 50 mg Oral cap ss [Active]; losartan 100 mg Oral tab 1 tab once daily [Active]; celecoxib 100 mg Oral cap 1 cap 2 times per day [Active]; - PMHx: 07:55 Arthritis; High Cholesterol; Hypertension; ss - Immunization history:: Adult Immunizations. - Social history:: Smoking status: Patient denies any tobacco usage or history of. Screenin:00 Abuse screen: Denies threats or abuse. Denies injuries from another. Nutritional ss screening: No deficits noted. Tuberculosis screening: Never had TB. Fall Risk No fall in past 12 months (0 pts). Secondary diagnosis (15 points) impaired mobility, IV access (20 points). Ambulatory Aid- None/Bed Rest/Nurse Assist (0 pts). Gait- Normal/Bed Rest/Wheelchair (0 pts) Mental Status- Oriented to own ability (0 pts). Assessment: 08:00 General: Appears distressed, uncomfortable, Behavior is cooperative, restless, Denies ss fever, feeling ill, fatigue, chills. Pain: Complains of pain in low back Pain radiates to left leg Pain currently is 10 out of 10 on a pain scale. Quality of pain is described as aching, throbbing, pinching, Pain began 0430 this morning became much worse Is continuous, Noted to be grimacing, moaning, restless. Neuro: Level of Consciousness is awake, alert, obeys commands, Oriented to person, place, time, situation, Speech is normal. Cardiovascular: Pulses are palpable in right radial artery, right posterior tibial artery, left radial artery and left posterior tibial artery. Respiratory: Airway is patent Respiratory effort is even, unlabored, Respiratory pattern is regular, symmetrical. GI: No signs and/or symptoms were reported involving the gastrointestinal system. EENT: Oral mucosa is dry. Derm: Skin is intact, is healthy with good turgor, Skin is dry, Skin is pink, warm \\T\\ dry. normal. 08:32 Reassessment: awaiting for pharmacy to bring Robaxin infusion. Pt appears ss uncomfortable, is restless. 09:12 Reassessment: Pt reports she is beginning to get some pain relief from medication ss administration. 09:22 Reassessment: pt repositioned to recliner chair, initially had some relief but now c/o iw pain to left hip and leg again. 10:26 Reassessment: Patient appears in no apparent distress at this time. pt sitting in iw recliner chair, feet up, still uncomfortable. fentanyl 25 mcg IVP given per oct, VSS. 11:01 Reassessment: Pt report little relief. Dr. Choi at bedside. Will speak with Dr. Allison ruby about possible admission for pain control. 12:00 Reassessment: lights dimmed for comfort, pt seems to be resting with eyes closed. ss Respirations remain even and unlabored. 12:15 Reassessment: daughter went to go home to grab different vehicle and clothing for ss patient. Vital Signs: 07:52 BP 157 / 115; Pulse 88; Resp 22; Temp 97.4(TE); Pulse Ox 99% on R/A; Pain 10/10; ss 09:00 BP 180 / 77; Pulse 80; Resp 20 S; Pulse Ox 100% on R/A; iw 10:24 BP 179 / 84; Pulse 70; Resp 16; Pulse Ox 100% on R/A; iw ED Course: 07:46 Patient arrived in ED. as 07:54 Triage completed. ss 07:55 Arm band placed on right wrist. ss 08:00 Patient has correct armband on for positive identification. Bed in low position. Call ss light in reach. Side rails up X2. Pulse ox on. NIBP on. Warm blanket given. 08:01 Benja Choi MD is Attending Physician. kdr 08:26 Inserted saline lock: 22 gauge in right antecubital area, using aseptic technique. ss Blood collected. 08:30 Isha Avendano, JANNA is Primary Nurse. ss 12:51 No provider procedures requiring assistance completed. IV discontinued, intact, ss bleeding controlled, No redness/swelling at site. Pressure dressing applied. Administered Medications: 08:28 Drug: Zofran (Ondansetron) 4 mg Route: IVP; Site: right antecubital; ss 08:45 Follow up: Response: No adverse reaction ss 08:31 Not Given (Other Intervention Used): morphine 4 mg IVP once; RASS on ADMIN: Combtv4, ss Very Agttd3, Agttd2, Rstlss1, AlertClm0, Drwsy-1, Lt Sdtn-2, Mod Sdtn-3, Dp Sdtn-4, UnArsble-5 08:31 Drug: morphine 2 mg Route: IVP; Site: right antecubital; ss 08:45 Follow up: Response: No adverse reaction; No adverse reaction, pain is minimally ss decreased 08:36 Drug: Robaxin 1 grams Route: IVPB; Infused Over: 1 hrs; Site: right antecubital; ss 09:36 Follow up: IV Status: Completed infusion ss 09:30 Drug: morphine 2 mg Route: IVP; Site: right antecubital; ss 09:45 Follow up: Response: No adverse reaction; No change in condition ss 10:23 Drug: fentaNYL (PF) 25 mcg Route: IVP; Site: right antecubital; iw 10:45 Follow up: Response: No adverse reaction ss 11:55 Drug: Violet (7.5 mg-325 mg) 2 tabs Route: PO; ss 12:57 Follow up: Response: Medication administered at discharge. ss Outcome: 11:50 Discharge ordered by . kdr 12:51 Discharged to home via wheelchair, with family. ss 12:51 Condition: good 12:51 Discharge instructions given to patient, Instructed on discharge instructions, follow up and referral plans. medication usage, Demonstrated understanding of instructions, follow-up care, medications. 12:52 Patient left the ED. ss Signatures: Benja Choi MD MD kdr Martinez, Amelia as Williams, Irene, RN RN Isha Avendano RN RN ss
[2020-06-04] MEDS ORDERED: HYDROCODONE/APAP 7.5/325 MG TAB ONE (12:02)
[2020-06-04 13:13] VITALS: TEMP 97.4
[2020-06-04 13:14] VITALS: O2SAT 100
[2020-06-04 13:15] VITALS: BP 179/84
== END 2020-06-04 12:52 | disposition home or self-care (01) ==
LOC: ER 07:45
DX: M54.32 Sciatica, left side (principal); I10 Essential (primary) hypertension; E78.00 Pure hypercholesterolemia, unspecified
CPT/HCPCS: 96365; 96375; 99284; J3010; J2405; J2800

== ENCOUNTER 2022-03-23 10:40 | Emergency (ER) | payer OTHER ==
[2022-03-23] MEDS ORDERED: SILVER NITRATE 1 APPL TOP ONE (11:44)
--- NOTE | 2022-03-23 11:48 | ER ---
Nurse's Notes [facility] Name: Rosario Randhawa Age: 76 yrs Sex: Female : 1945 Arrival Date: 03/23/2022 Time: 10:42 Bed 10 Private MD: Ignacia Cooper C Diagnosis: Encounter for removal of sutures Presentation: 03/23 11:10 Chief complaint: Patient states: Had sutures placed to R lower leg "on a vein" 2 weeks ss ago. Pt followed up with Dr. Cooper, but he did not want to take a chance of removing sutures in office in case the vein began bleeding. Coronavirus screen: Client denies travel out of the [place] in the last 14 days. Ebola Screen: Patient denies exposure to infectious person. Patient denies travel to an Ebola-affected area in the 21 days before illness onset. Initial Sepsis Screen: Does the patient meet any 2 criteria? No. Patient's initial sepsis screen is negative. Does the patient have a suspected source of infection? No. Patient's initial sepsis screen is negative. Risk Assessment: Do you want to hurt yourself or someone else? Patient reports desire/thoughts of hurting themselves or someone else. Provider notified. Onset of symptoms was February 2022. 11:10 Method Of Arrival: Ambulatory ss 11:10 Acuity: JOSE 4 ss Historical: - Allergies: 11:11 "sensitive to anything that makes some drowsy"; ss - PMHx: 11:11 Arthritis; High Cholesterol; Hypertension; ss - Immunization history:: Last tetanus immunization: up to date. - Social history:: Smoking status: Patient denies any tobacco usage or history of. Vital Signs: 11:10 BP 184 / 85; Pulse 65; Resp 16; Temp 98.1(TE); Pulse Ox 99% on R/A; Pain 0/10; ss ED Course: 10:42 Patient arrived in ED. rg4 10:42 Ignacia Cooper MD is Private Physician. rg4 11:11 Triage completed. ss 11:11 Arm band placed on right wrist. ss 11:19 Melissa Chaidez FNP-C is PHCP. snw 11:19 Benja Choi MD is Attending Physician. snw 11:47 Ignacia Cooper MD is Referral Physician. snw 11:49 Smirch, Isha, RN is Primary Nurse. ss 11:56 Patient did not have IV access during this emergency room visit. ss Administered Medications: No medications were administered Outcome: 11:47 Discharge ordered by MD. snw 11:56 Discharged to home ambulatory, with family. ss 11:56 Condition: good 11:56 Discharge instructions given to patient, Instructed on discharge instructions, follow up and referral plans. Demonstrated understanding of instructions, follow-up care. 11:57 Patient left the ED. Signatures: Melissa Chaidez, PALEOLOGIST-C PALEOLOGIST-Csnw Isha Avendano, RN RN Lora Dupont rg4
--- NOTE | 2022-03-23 11:48 | EDPHYS ---
Physician Documentation [facility] Name: Rosario Randhawa Age: 76 yrs Sex: Female : 1945 Arrival Date: 03/23/2022 Time: 10:42 Bed 10 Private MD: Ignacia Cooper C ED Physician Benja Choi HPI: 03/23 11:57 This 76 yrs old Female presents to ER via Ambulatory with complaints of Suture Removal. snw 11:57 The patient has sutures on the lateral aspect of right knee. Previous treatment: the snw care was rendered at [facility], Treatment type: The patient's original treatment included sutures. Sutures/reji progress: The patient has no c/o's. The wound is well-healing with no redness, swelling, discharge, or dehiscence reported. The patient has not experienced similar symptoms in the past. The patient has been recently seen by a physician: the patient's primary care provider, with similar presenting complaints. Historical: - Allergies: 11:11 "sensitive to anything that makes some drowsy"; ss - PMHx: 11:11 Arthritis; High Cholesterol; Hypertension; ss - Immunization history:: Last tetanus immunization: up to date. - Social history:: Smoking status: Patient denies any tobacco usage or history of. ROS: 11:51 Constitutional: Negative for fever, chills, and weight loss, Eyes: Negative for injury, snw pain, redness, and discharge, ENT: Negative for injury, pain, and discharge, Neck: Negative for injury, pain, and swelling, Cardiovascular: Negative for chest pain, palpitations, and edema, Respiratory: Negative for shortness of breath, cough, wheezing, and pleuritic chest pain, Abdomen/GI: Negative for abdominal pain, nausea, vomiting, diarrhea, and constipation, Back: Negative for injury and pain, : Negative for injury, bleeding, discharge, and swelling, MS/Extremity: Negative for injury and deformity, Neuro: Negative for headache, weakness, numbness, tingling, and seizure, Psych: Negative for depression, anxiety, suicide ideation, homicidal ideation, and hallucinations. 11:51 Skin: Positive for suture of varicose vein 2 weeks ago. Exam: 11:53 Constitutional: This is a well developed, well nourished patient who is awake, alert, snw and in no acute distress. Head/Face: Normocephalic, atraumatic. Eyes: Pupils equal round and reactive to light, extra-ocular motions intact. Lids and lashes normal. Conjunctiva and sclera are non-icteric and not injected. Cornea within normal limits. Periorbital areas with no swelling, redness, or edema. ENT: Nares patent. No nasal discharge, no septal abnormalities noted. Tympanic membranes are normal and external auditory canals are clear. Oropharynx with no redness, swelling, or masses, exudates, or evidence of obstruction, uvula midline. Mucous membranes moist. Neck: Trachea midline, no thyromegaly or masses palpated, and no cervical lymphadenopathy. Supple, full range of motion without nuchal rigidity, or vertebral point tenderness. No Meningismus. Chest/axilla: Normal chest wall appearance and motion. Nontender with no deformity. No lesions are appreciated. Cardiovascular: Regular rate and rhythm with a normal S1 and S2. No gallops, murmurs, or rubs. Normal PMI, no JVD. No pulse deficits. Respiratory: Lungs have equal breath sounds bilaterally, clear to auscultation and percussion. No rales, rhonchi or wheezes noted. No increased work of breathing, no retractions or nasal flaring. Abdomen/GI: Soft, non-tender, with normal bowel sounds. No distension or tympany. No guarding or rebound. No evidence of tenderness throughout. Back: No spinal tenderness. No costovertebral tenderness. Full range of motion. MS/ Extremity: Pulses equal, no cyanosis. Neurovascular intact. Full, normal range of motion. Neuro: Awake and alert, GCS 15, oriented to person, place, time, and situation. Cranial nerves II-XII grossly intact. Motor strength 5/5 in all extremities. Sensory grossly intact. Cerebellar exam normal. Normal gait. Psych: Awake, alert, with orientation to person, place and time. Behavior, mood, and affect are within normal limits. 11:53 Skin: Appearance: normal except for affected area, rash can be described as nonspecific, figure eight to superficial varicose vein, removed with scalpel, no bleeding. Pt tolerated well. + atopic dermatitis. Suggest monistat cream with aquaphor ointment 1:3 bid. Vital Signs: 11:10 BP 184 / 85; Pulse 65; Resp 16; Temp 98.1(TE); Pulse Ox 99% on R/A; Pain 0/10; ss MDM: 11:19 Patient medically screened. snw 11:53 Data reviewed: vital signs, nurses notes. Counseling: I had a detailed discussion with snw the patient and/or guardian regarding: the presence of at least one elevated blood pressure reading (>120/80) during this emergency department visit, the need for outpatient follow up, for definitive care. Administered Medications: No medications were administered Disposition: 14:38 Co-signature as Attending Physician, Benja Choi MD I agree with the assessment and kdr plan of care. Disposition Summary: 03/23/22 11:47 Discharge Ordered Location: Home snw Condition: Stable snw Diagnosis - Encounter for removal of sutures snw Followup: snw - With: Ignacia Cooper MD - When: 1 week - Reason: Recheck today's complaints, Continuance of care, Re-evaluation by your physician Discharge Instructions: - Discharge Summary Sheet snw - Suture Removal, Care After snw - Bleeding Varicose Veins snw - Atopic Dermatitis snw Forms: - Medication Reconciliation Form snw - Thank You Letter snw - Antibiotic Education snw - Prescription Opioid Use snw Signatures: Benja Choi MD MD kdr Waters, Shelly, FNP-C COMMERCIAL TELLER-Csnw Isha Avendano RN RN ss
[2022-03-23 12:45] VITALS: BP 184/85; TEMP 98.1; O2SAT 99
== END 2022-03-23 11:57 | disposition home or self-care (01) ==
LOC: ER 10:40
DX: Z48.02 Encounter for removal of sutures (principal)
CPT/HCPCS: 99281

== ENCOUNTER 2023-04-08 19:34 | Emergency (ER) | payer OTHER ==
--- OUTSIDE RECORDS SUMMARY | 2023-04-08 19:39 | XMS REPORT | Continuity of Care Document ---
:[address] [facility] t Address [address] [place] [address] Care Team Providers Name Role Phone Janice Sandoval MD Primary Care Physician JANICE SANDOVAL Attending Clinician Unavailable JANICE SANDOVAL Attending Clinician Unavailable POLLO REICH Attending Clinician Unavailable Pollo Reich MD Attending Clinician SHELDON AGARWAL Attending Clinician Unavailable Sheldon Farley Attending Clinician Elizabeth Watson Attending Clinician Doctor Unassigned, [place] Attending Clinician Unavailable Rosalee Resendez MD Attending Clinician Hossein Phillips DO Attending Clinician Payers Payer Name Policy Type Policy Number Effective Date Expiration Date S mary MEDICARE PART A [id number] 2008 \T\ B 00:00:00 [employer] INDEMNITY [id number] 2013 00:00:00 [employer] MANAGED [id number] 2022 MEDICARE PPO-MIKEL 00:00:00 Problems Condition Condition Condition Status Onset Resolution Last Treating Co mments Source Name Details Category Date Date Treatment Clinician Date Chronic Chronic Disease Active 2021-08 [facility] pruritic pruritic 09-21 st rash in rash in 00:00: Hospita adult adult 00 l Acute deep Acute deep Disease Active Overview : [facility] vein vein 01-[address] thrombosis thrombosis 00:00: g of this Hospita (DVT) of (DVT) of 00 note l proximal proximal might be vein of vein of different left lower left lower from the extremity extremity original. Following varicose vein stripping in 09/2016. Complicat ed by PE. 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 00:00: Hospita involving involving 00 l multiple multiple joints joints SVT SVT Disease Recurre [facility] 09-28 Claudette kes ricular ricular 00:00: Medical tachycardi tachycardi 00 Ce nter a) a) Acute Acute Disease Recurre [facility] pulmonary pulmonary nce 09-28 [facility] embolism embolism 00:00: Medica l 00 Center Pulmonary Pulmonary Disease [facility] Tachycardi Tachycardi Disease Active [facility] 09[facility] Varicose Varicose Disease Active [facility] bilateral bilateral 00:00: Medi aram lower lower 00 Center extremitie extremitie s with s with other other complicati complicati ons ons Vitamin D Vitamin D Disease Active Met hodi deficiency deficiency 03-07 00:00: Hospita 00 l 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 Severe hearing loss, wears right sided hearing aide but relies heavily on lip reading Essential Essential Disease Active Met hodi hypertensi hypertensi 03-07 st on on 00:00: Hospita 00 l Impaired Impaired Disease Active Metho di fasting fasting 03-07 glucose glucose 00:00: Hospita 00 l No known No known Disease Unive rs active active ity of problems problems [facility] Allergies, Adverse Reactions, Alerts Allergy Allergy Status Severity Reaction(s) Onset Inactive Treating Comm ents Source Name Type Date Date Clinician Ezetimib Propensi Active Other (See Body Me thodi e ty to Comments) 6 aches, st adverse 00:00: dizziness Hospit a reaction 00 l s to drug Neuromus Propensi Active Other (See Patient M ethodi cular ty to Comments) 01-[address] Blockers adverse 00:00: why this Hospi ta , reaction 00 is l Steroida s to hereLoss l drug of appetite, anxious, dperessio n NO KNOWN Drug Active Univers ALLERGIE Class ity of S [facility] Family History Family Member Diagnosis Comments Start Date Stop Date Source Natural mother [facility] failure [facility] Natural mother Other [facility] Hy[facility] Social History Social Habit Start Date Stop Date Quantity Comments Source History SDOH University o f Alcohol Std Drinks [place] [facility] History SDOH University o f Alcohol Binge [place] [facility] History [facility] University o f Alcohol Comment [place] [facility] Gender identity [facility] Sexual orientation [facility] Exposure to 2023-01-07 2023-01-17 Not sure University SARS-CoV-2 (event) 00:00:00 14:39:00 [facility] Tobacco use and 2022-12-07 2022-12-07 Smokeless Universit y of exposure 00:00:00 00:00:00 tobacco non-user [facility] dical Branch History of Social 2022-07-20 2022-07-[address] function 00:00:00 00:00:00 Hospital History SDOH 2019-03-26 2019-03-26 1 University o f Alcohol Frequency 00:00:00 00:00:00 [facility] edical Branch Alcohol intake 2016-09-28 2016-09-28 Current NATALY Jones es 00:00:00 00:00:00 non-drinker of Medical Ce nter alcohol (finding) Sex [birth year] NATALY Burris kes 00:00:00 00:00:00 [facility] Smoking Status Start Date Stop Date Source Unknown if ever smoked [facility] Never smoked tobacco [facility] Medications Ordered Filled Start Stop Current Ordering Indication Dosage Frequency Signature Comments Components Source Medication Medication Date Date Medication? Clinician (SIG) Name Name celecoxib 0 Yes [id number] 100mg Take 1 U nivers 100 mg 8-15 capsule by ity of capsule 00:00: mouth 2 [place] 00 (two) Medical times Branch daily with meals as needed for Pain. losartan 2023-0 2023- No 100mg Take 1 Unive rs 100 mg 7-25 07-25 tablet by ity of tablet 13:48: 00:00 mouth in [place] 48 :00 the Medical morning. Branch amLODIPine 2023-0 2023- No 5mg Take 1 Univ ers 5 mg tablet 7-25 07-25 tablet by it y of 13:48: 00:00 mouth. [place] 48 :00 Medical Branch losartan 2023-0 2023- No 100mg Take 1 Unive rs 100 mg 7-25 07-25 tablet by ity of tablet 13:48: 00:00 mouth in [place] 48 :00 the Medical morning. Branch amLODIPine 2023-0 2023- No 5mg Take 1 Univ ers 5 mg tablet 7-25 07-25 tablet by it y of 13:48: 00:00 mouth. [place] 48 :00 Medical Branch losartan 2023-0 2023- No 100mg Take 1 Unive rs 100 mg 7-25 07-25 tablet by ity of tablet 13:48: 00:00 mouth in [place] 48 :00 the Medical morning. Branch amLODIPine 2023-0 2023- No 5mg Take 1 Univ ers 5 mg tablet 7-25 07-25 tablet by it y of 13:48: 00:00 mouth. [place] 48 :00 Medical Branch gabapentin 2023-0 2023- No 100mg Take 1 Uni vers 100 mg 7-25 07-25 capsule by ity of capsule 13:30: 00:00 mouth in [place] 27 :00 the Medical morning Branch and 1 capsule in the evening. gabapentin 2023-0 2023- No 100mg Take 1 Uni vers 100 mg 7-25 07-25 capsule by ity of capsule 13:30: 00:00 mouth in [place] 27 :00 the Medical morning Branch and 1 capsule in the evening. gabapentin 2023-0 2023- No 100mg Take 1 Uni vers 100 mg 7-25 07-25 capsule by ity of capsule 13:30: 00:00 mouth in [place] 27 :00 the Medical morning Branch and 1 capsule in the evening. losartan 2022-0 Yes [id number] 100mg Take 1 Un tc 100 mg 7-25 tablet by ity of tablet 00:00: mouth in [place] 00 the Medical morning. Branch amLODIPine 2022-0 Yes [id number] 5mg Take 1 U nivers 5 mg tablet 7-25 tablet by ity of 00:00: mouth in [place] 00 the Medical morning. Branch atorvastati 2022-0 Yes [id number] 10mg Take 1 Univers n 10 mg 7-25 tablet by ity of tablet 00:00: mouth [place] 00 every Medical evening. Branch gabapentin 2022-0 Yes [id number] 200mg Take 2 Univers 100 mg 7-25 capsules ity of capsule 00:00: by mouth [place] 00 in the Medical morning Branch and 2 capsules in the evening. diclofenac 2022-0 Yes [id number] 75mg Take 1 U nivers 75 mg EC 7-25 tablet by ity of tablet 00:00: mouth 2 [place] 00 (two) Medical times Branch daily with meals as needed for Pain. carvediloL 2022-0 Yes [id number] 3.125mg Take 1 Univers 3.125 mg 7-25 tablet by ity of tablet 00:00: mouth in [place] 00 the Medical morning Branch and 1 tablet in the evening. losartan 2022-0 Yes [id number] 100mg Take 1 Un tc 100 mg 7-25 tablet by ity of tablet 00:00: mouth in [place] 00 the Medical morning. Branch amLODIPine 2022-0 Yes [id number] 5mg Take 1 U nivers 5 mg tablet 7-25 tablet by ity of 00:00: mouth in [place] 00 the Medical morning. Branch atorvastati 2022-0 Yes [id number] 10mg Take 1 Univers n 10 mg 7-25 tablet by ity of tablet 00:00: mouth [place] every Medical evening. Branch gabapentin 2022-0 Yes [id number] 200mg Take 2 Univers 100 mg 7-25 capsules ity of capsule 00:00: by mouth in the Medical morning Branch and 2 capsules in the evening. diclofenac 2022-0 Yes [id number] 75mg Take 1 U nivers 75 mg EC 7-25 tablet by ity of tablet 00:00: mouth 2 [place] (two) Medical times Branch daily with meals as needed for Pain. carvediloL 2022-0 Yes [id number] 3.125mg Take 1 Univers 3.125 mg 7-25 tablet by ity of tablet 00:00: mouth in [place] the Medical morning Branch and 1 tablet in the evening. losartan 2022-0 Yes [id number] 100mg Take 1 Un tc 100 mg 7-25 tablet by ity of tablet 00:00: mouth in [place] the Medical morning. Branch amLODIPine 2022-0 Yes [id number] 5mg Take 1 U nivers 5 mg tablet 7-25 tablet by ity of 00:00: mouth in [place] the Medical morning. Branch atorvastati 2022-0 Yes [id number] 10mg Take 1 Univers n 10 mg 7-25 tablet by ity of tablet 00:00: mouth [place] every Medical evening. Branch gabapentin 2022-0 Yes [id number] 200mg Take 2 Univers 100 mg 7-25 capsules ity of capsule 00:00: by mouth [place] in the Medical morning Branch and 2 capsules in the evening. diclofenac 2022-0 Yes [id number] 75mg Take 1 U nivers 75 mg EC 7-25 tablet by ity of tablet 00:00: mouth [place] (two) Medical times Branch daily with meals as needed for Pain. carvediloL 2022-0 Yes [id number] 3.125mg Take 1 Univers 3.125 mg 7-25 tablet by ity of tablet 00:00: mouth in [place] the Medical morning Branch and 1 tablet in the evening. losartan 2022-0 Yes [id number] 100mg Take 1 Un tc 100 mg 7-25 tablet by ity of tablet 00:00: mouth in [place] 00 the Medical morning. Branch amLODIPine 2022-0 Yes [id number] 5mg Take 1 U nivers 5 mg tablet 7-25 tablet by ity of 00:00: mouth in [place] the Medical morning. Branch atorvastati 2022-0 Yes [id number] 10mg Take 1 Univers n 10 mg 7-25 tablet by ity of tablet 00:00: mouth [place] 00 every Medical evening. Branch gabapentin 2022-0 Yes [id number] 200mg Take 2 Univers 100 mg 7-25 capsules ity of capsule 00:00: by mouth [place] 00 in the Medical morning Branch and 2 capsules in the evening. diclofenac 2022-0 Yes [id number] 75mg Take 1 U nivers 75 mg EC 7-25 tablet by ity of tablet 00:00: mouth 2 [place] (two) Medical times [facility] daily with meals as needed for Pain. carvediloL 2022-0 Yes [id number] 3.125mg Take 1 Univers 3.125 mg 7-25 tablet by ity of tablet 00:00: mouth in [place] the Medical morning Branch and 1 tablet in the evening. losartan 2022-0 Yes [id number] 100mg Take 1 Un tc 100 mg 7-25 tablet by ity of tablet 00:00: mouth in [place] the Medical morning. Branch amLODIPine 2022-0 Yes [id number] 5mg Take 1 U nivers 5 mg tablet 7-25 tablet by ity of 00:00: mouth in [place] the Medical morning. Branch atorvastati 2022-0 Yes [id number] 10mg Take 1 Univers n 10 mg 7-25 tablet by ity of tablet 00:00: mouth [place] 00 every Medical evening. Branch gabapentin 2022-0 Yes [id number] 200mg Take 2 Univers 100 mg 7-25 capsules ity of capsule 00:00: by mouth [place] 00 in the Medical morning Branch and 2 capsules in the evening. diclofenac 2022-0 Yes [id number] 75mg Take 1 U nivers 75 mg EC 7-25 tablet by ity of tablet 00:00: mouth 2 [place] (two) Medical times Branch daily with meals as needed for Pain. carvediloL 2022-0 Yes [id number] 3.125mg Take 1 Univers 3.125 mg 7-25 tablet by ity of tablet 00:00: mouth in [place] the Medical morning Branch and 1 tablet in the evening. losartan 2022-0 Yes [id number] 100mg Take 1 Un tc 100 mg 7-25 tablet by ity of tablet 00:00: mouth in [place] 00 the Medical morning. Branch amLODIPine 2022-0 Yes [id number] 5mg Take 1 U nivers 5 mg tablet 7-25 tablet by ity of 00:00: mouth in [place] 00 the Medical morning. Branch atorvastati 2022-0 Yes [id number] 10mg Take 1 Univers n 10 mg 7-25 tablet by ity of tablet 00:00: mouth [place] 00 every Medical evening. Branch gabapentin 2022-0 Yes [id number] 200mg Take 2 Univers 100 mg 7-25 capsules ity of capsule 00:00: by mouth [place] 00 in the Medical morning Branch and 2 capsules in the evening. carvediloL 2022-0 Yes [id number] 3.125mg Take 1 Univers 3.125 mg 7-25 tablet by ity of tablet 00:00: mouth in [place] 00 the Medical morning Branch and 1 tablet in the evening. diclofenac 2022-0 2022- No [id number] 75mg Take 1 Univers 75 mg EC 7-25 08-15 tablet by ity o f tablet 00:00: 00:00 mouth 2 [place] 00 :00 (two) Medical times Branch daily with meals as needed for Pain. atorvastati 2022-0 2022- No 10mg Take 1 Uni vers n 10 mg 7-25 07-25 tablet by ity of tablet 00:00: 00:00 mouth [place] 00 :00 every Medical evening. Branch gabapentin 2022-0 2022- No 200mg Take 2 Uni vers 100 mg 7-25 07-25 capsules ity of capsule 00:00: 00:00 by mouth [place] 00 :00 in the Medical morning Branch and 2 capsules in the evening. atorvastati 2022-0 2022- No 10mg Take 1 Uni vers n 10 mg 7-25 07-25 tablet by ity of tablet 00:00: 00:00 mouth [place] 00 :00 every Medical evening. Branch gabapentin 2022-0 2022- No 200mg Take 2 Uni vers 100 mg 7-25 07-25 capsules ity of capsule 00:00: 00:00 by mouth [place] 00 :00 in the Medical morning Branch and 2 capsules in the evening. atorvastati 2022-0 2022- No 10mg Take 1 Uni vers n 10 mg 7-25 -25 tablet by ity of tablet 00:00: 00:00 mouth [place] 00 :00 every Medical evening. Branch gabapentin 2023-0 202- No 200mg Take 2 Uni vers 100 mg 7-25 -25 capsules ity of capsule 00:00: 00:00 by mouth [place] 00 :00 in the Medical morning Branch and 2 capsules in the evening. sodium 2022-0 2022- No [id number] 30mg Uni vers hyaluronate 01-17 9100 ity of (viscosup) 20:15: 20:09 [place] (ORTHOVISC) 00 :00 Medical injection Branch 30 mg sodium 2022-0 2022- No [id number] 30mg 30 mg, U nivers hyaluronate 01-17 9100 Intra-willie i ty of (viscosup) 20:15: 20:09 cularPravina s (ORTHOVISC) 00 :00 ONCE, 1 Medic al injection dose, On Branch 30 mg Sun01/17/23 at 1515, Routine sodium 2022-0 2022- No [id number] 30mg Uni vers hyaluronate 01-17 9100 ity of (viscosup) 20:15: 20:09 [place] (ORTHOVISC) 00 :00 Medical injection Branch 30 mg sodium 3-0 2022- No [id number] 30mg 30 mg, U nivers hyaluronate 01-17 9100 Intra-willie i ty of (viscosup) 20:15: 20:09 [place] (ORTH[place] 00 :00 ONCE, 1 Medic al injection dose, On Branch 30 mg Sun01/17/23 at 1515, Routine sodium 2022-0 2022- No [id number] 30mg Uni vers hyaluronate 01-17 9100 ity of (viscosup) 20:15: 20:09 [place] (ORTHOVISC) 00 :00 Medical injection Branch 30 mg sodium 2023-0 2022- No [id number] 30mg 30 mg, U nivers hyaluronate 01-17 9100 Intra-willie i ty of (viscosup) 20:15: 20:09 [place], [place] (ORTH[place] 00 :00 ONCE, 1 Medic al injection dose, On Branch 30 mg 01/17/23 at 1515, Routine sodium 2023-0 2023- No [id number] 30mg Uni vers hyaluronate 01-09 9100 ity of (viscosup) 20:15: 20:03 [place] (ORTHOVISC) 00 :00 Medical injection Branch 30 mg sodium 2023-0 2023- No [id number] 30mg 30 mg, U nivers hyaluronate 01-09 9100 Intra-willie i ty of (viscosup) 20:15: 20:03 Pravin randolpha s (ORTHOVIS) 00 :00 ONCE, 1 Medic al injection dose, On Branch 30 mg 01/09/23 at 1515, Routine sodium 2023-0 2023- No [id number] 30mg Uni vers hyaluronate 01-09 9100 ity of (viscosup) 20:15: 20:03 [place] (ORTHOVIS) 00 :00 Medical injection Branch 30 mg sodium 2023-0 2023- No [id number] 30mg 30 mg, U nivers hyaluronate 01-09 9100 Intra-willie i ty of (viscosup) 20:15: 20:03 Armen randolph s (ORTHOVISC) 00 :00 ONCE, 1 Medic al injection dose, On Branch 30 mg 01/09/23 at 1515, Routine sodium 2023-0 2023- No [id number] 30mg Uni vers hyaluronate 01-02- 9100 ity of (viscosup) 21:00: 19:49 [place] (ORTHOVISC) 00 :00 Medical injection Branch 30 mg sodium 2023-0 2023- No [id number] 30mg 30 mg, U nivers hyaluronate 5- 9100 Intra-willie i ty of (viscosup) 21:00: 19:49 Armen randolph s (ORTHOVISC) 00 :00 ONCE, 1 Medic al injection dose, On Branch 30 mg 01/02/23 at 1600, Routine sodium 2023-0 2023- No [id number] 30mg Uni vers hyaluronate 5-16 05-16 9100 ity of (viscosup) 21:00: 19:49 [place] (ORTHOVISC) 00 :00 Medical injection Branch 30 mg sodium 2023-0 2023- No [id number] 30mg 30 mg, U nivers hyaluronate 5-16 05-16 9100 Intra-willie i ty of (viscosup) 21:00: 19:49 lilianArmen valverde s (ORTHOVISC) 00 :00 ONCE, 1 Medic al injection dose, On Branch 30 mg 01/02/23 at 1600, Routine amLODIPine 2023-0 Yes 5mg Take 1 Unive rs 5 mg tablet 5-16 tablet by ity of 14:52: mouth. [address] gabapentin 2023-0 Yes 100mg Take 1 Univ ers 100 mg 5-16 capsule by ity of capsule 14:52: mouth in [address] and 1 capsule in the evening. DICLOFENAC 2023-0 Yes Apply to Uni vers SODIUM 1 % 5-16 area(s). ity o f gel 14:52: [address] amLODIPine 2023-0 Yes 5mg Take 1 Unive rs 5 mg tablet 5-16 tablet by ity of 14:52: mouth. [address] gabapentin 2023-0 Yes 100mg Take 1 Univ ers 100 mg 5-16 capsule by ity of capsule 14:52: mouth in [address] and 1 capsule in the evening. DICLOFENAC 2023-0 Yes Apply to Uni vers SODIUM 1 % 5-16 area(s). ity o f gel 14:52: [address] amLODIPine 2023-0 Yes 5mg Take 1 Unive rs 5 mg tablet 5-16 tablet by ity of 14:52: mouth. [address] gabapentin 2023-0 Yes 100mg Take 1 Univ ers 100 mg 5-16 capsule by ity of capsule 14:52: mouth in [address] and 1 capsule in the evening. DICLOFENAC 2023-0 Yes Apply to Uni vers SODIUM 1 % 5-16 area(s). ity o f gel 14:52: [address] amLODIPine 2023-0 Yes 5mg Take 1 Unive rs 5 mg tablet 5-16 tablet by ity of 14:52: mouth. [address] gabapentin 2023-0 Yes 100mg Take 1 Univ ers 100 mg 5-16 capsule by ity of capsule 14:52: mouth in [address] and 1 capsule in the evening. DICLOFENAC 2023-0 Yes Apply to Uni vers SODIUM 1 % 5-16 area(s). ity o f gel 14:52: [address] amLODIPine 2023-0 Yes 5mg Take 1 Unive rs 5 mg tablet 5-16 tablet by ity of 14:52: mouth. [address] gabapentin 2023-0 Yes 100mg Take 1 Univ ers 100 mg 5-16 capsule by ity of capsule 14:52: mouth in [address] and 1 capsule in the evening. DICLOFENAC 2023-0 Yes Apply to Uni vers SODIUM 1 % 5-16 area(s). ity o f gel 14:52: [address] amLODIPine 2023-0 Yes 5mg Take 1 Unive rs 5 mg tablet 5-16 tablet by ity of 14:52: mouth. [address] gabapentin 2023-0 Yes 100mg Take 1 Univ ers 100 mg 5-16 capsule by ity of capsule 14:52: mouth in [address] and 1 capsule in the evening. DICLOFENAC 2023-0 Yes Apply to Uni vers SODIUM 1 % 5-16 area(s). ity o f gel 14:52: [address] amLODIPine 3-0 Yes 5mg Take 1 Unive rs 5 mg tablet 5-16 tablet by ity of 14:52: mouth. [address] gabapentin 2023-0 Yes 100mg Take 1 Univ ers 100 mg 5-16 capsule by ity of capsule 14:52: mouth in [address] and 1 capsule in the evening. DICLOFENAC 2023-0 Yes Apply to Uni vers SODIUM 1 % 5-16 area(s). ity o f gel 14:52: [address] DICLOFENAC 2023-0 Yes Apply to Uni vers SODIUM 1 % 5-16 area(s). ity o f gel 14:52: [address] DICLOFENAC 2023-0 Yes Apply to Uni vers SODIUM 1 % 5-16 area(s). ity o f gel 14:52: [address] DICLOFENAC 2023-0 Yes Apply to Uni vers SODIUM 1 % 5-16 area(s). ity o f gel 14:52: [address] DICLOFENAC 2023-0 Yes Apply to Uni vers SODIUM 1 % 5-16 area(s). ity o f gel 14:52: [place] 26 Medical Branch DICLOFENAC 2023-0 Yes Apply to Uni vers SODIUM 1 % 5-16 area(s). ity o f gel 14:52: [place] [address] Medical Branch DICLOFENAC 2023-0 Yes Apply to Uni vers SODIUM 1 % 5-16 area(s). ity o f gel 14:52: [address] Branch losartan 2023-0 Yes 100mg Take 1 Univer s 100 mg 5-16 tablet by ity of tablet 14:50: mouth in [place] [address] the Medical morning. Branch losartan 2023-0 Yes 100mg Take 1 Univer s 100 mg 5-16 tablet by ity of tablet 14:50: mouth in [place] [address] the Medical morning. Branch losartan 2023-0 Yes 100mg Take 1 Univer s 100 mg 5-16 tablet by ity of tablet 14:50: mouth in [place] [address] the Medical morning. Branch losartan 2023-0 Yes 100mg Take 1 Univer s 100 mg 5-16 tablet by ity of tablet 14:50: mouth in [place] [address] the Medical morning. Branch losartan 2023-0 Yes 100mg Take 1 Univer s 100 mg 5-16 tablet by ity of tablet 14:50: mouth in [place] [address] the Medical morning. Branch losartan 2023-0 Yes 100mg Take 1 Univer s 100 mg 5-16 tablet by ity of tablet 14:50: mouth in [place] [address] the Medical morning. Branch losartan 2023-0 Yes 100mg Take 1 Univer s 100 mg 5-16 tablet by ity of tablet 14:50: mouth in [place] [address] the Medical morning. Branch atorvastati 2023-0 Yes 10mg Take 1 Univ ers n 10 mg 4-15 tablet by ity of tablet 00:00: mouth in [place] 00 the Medical morning. Branch atorvastati 2023-0 Yes 10mg Take 1 Univ ers n 10 mg 4-15 tablet by ity of tablet 00:00: mouth in [place] 00 the Medical morning. Branch atorvastati 2023-0 Yes 10mg Take 1 Univ ers n 10 mg 4-15 tablet by ity of tablet 00:00: mouth in [place] 00 the Medical morning. Branch atorvastati 2023-0 Yes 10mg Take 1 Univ ers n 10 mg 4-15 tablet by ity of tablet 00:00: mouth in [place] [address] the Medical morning. Branch atorvastati 2023-0 Yes 10mg Take 1 Univ ers n 10 mg 4-15 tablet by ity of tablet 00:00: mouth in [place] 00 the Medical morning. Branch atorvastati 2023-0 Yes 10mg Take 1 Univ ers n 10 mg 4-15 tablet by ity of tablet 00:00: mouth in [place] 00 the Medical morning. Branch atorvastati 2023-0 Yes 10mg Take 1 Univ ers n 10 mg 4-15 tablet by ity of tablet 00:00: mouth in [place] 00 the Medical morning. Branch atorvastati 2023-0 2023- No 10mg Take 1 Uni vers n 10 mg 4-15 07-25 tablet by ity of tablet 00:00: 00:00 mouth in [place] 00 :00 the Medical morning. Branch atorvastati 2023-0 2023- No 10mg Take 1 Uni vers n 10 mg 4-15 07-25 tablet by ity of tablet 00:00: 00:00 mouth in [place] 00 :00 the Medical morning. Branch atorvastati 2023-0 2023- No 10mg Take 1 Uni vers n 10 mg 4-15 07-25 tablet by ity of tablet 00:00: 00:00 mouth in [place] 00 :00 the Medical morning. Branch carvediloL 2023-0 Yes 3.125mg Take 1 Un tc 3.125 mg 3-01 tablet by ity of tablet 00:00: mouth in [place] 00 the Medical morning Branch and 1 tablet in the evening. carvediloL 2023-0 Yes 3.125mg Take 1 Un tc 3.125 mg 3-01 tablet by ity of tablet 00:00: mouth in [place] 00 the Medical morning Branch and 1 tablet in the evening. carvediloL 2023-0 Yes 3.125mg Take 1 Un tc 3.125 mg 3-01 tablet by ity of tablet 00:00: mouth in [place] 00 the Medical morning Branch and 1 tablet in the evening. carvediloL 2023-0 Yes 3.125mg Take 1 Un tc 3.125 mg 3-01 tablet by ity of tablet 00:00: mouth in [place] 00 the Medical morning Branch and 1 tablet in the evening. carvediloL 2023-0 Yes 3.125mg Take 1 Un tc 3.125 mg 3-01 tablet by ity of tablet 00:00: mouth in [place] 00 the Medical morning Branch and 1 tablet in the evening. carvediloL Yes 3.125mg Take 1 Un tc 3.125 mg 3-01 tablet by ity of tablet 00:00: mouth in [place] 00 the Medical morning Branch and 1 tablet in the evening. carvediloL 0 Yes 3.125mg Take 1 Un tc 3.125 mg 3- tablet by ity of tablet 00:00: mouth in [place] 00 the Medical morning Branch and 1 tablet in the evening. carvediloL 2022- No 3.125mg Take 1 U nivers 3.125 mg 3-08 26-25 tablet by ity o f tablet 00:00: 00:00 mouth in [place] 00 :00 the Medical morning Branch and 1 tablet in the evening. carvediloL 0 2022- No 3.125mg Take 1 U nivers 3.125 mg 3-08 26- tablet by ity o f tablet 00:00: 00:00 mouth in [place] 00 :00 the [facility] morning Branch and 1 tablet in the evening. carvediloL 2022- No 3.125mg Take 1 U nivers 3.125 mg 3-08 26- tablet by ity o f tablet 00:00: 00:00 mouth in [place] 00 :00 the [facility] morning Branch and 1 tablet in the evening. aspirin 2021-08- No 81mg QD Take 81 mg Met hodi (ECOTRIN) 09-[address] 81 MG 14:32: 00:00 daily. Hospita enteric 25 :00 l coated tablet naproxen 2021-08- No 220mg Take 220 Met hodi sodium 09-[address] (ALEVE) 220 14:32: 00:00 mouth as H ospita MG tablet 14 :00 needed (As l needed for arthritis pain). acetaminoph 2021-08 Yes 500mg Take 500 M ethodi en 2-[address] (TYLENOL) 14:14: mouth as Hosp maame 500 MG 21 needed for l tablet mild pain. Takes one tab po a few times a week. amLODIPine 2021-08 Yes 5mg QD Take 1 Metho di (NORVASC) 5 2- tablet (5 st mg tablet 14:14: mg total) Hos kathe 21 by mouth l daily. gabapentin 2021-08 Yes 100mg Q.5D Take 1 Meth logan (NEURONTIN) 2-[address] 100 mg 14:14: (100 mg Hospita capsule 21 total) by l mouth 2 (two) times a day. celecoxib 2021-08 Yes 100mg Q.5D Take 1 Metho di (CeleBREX) 2-[address] 100 MG 14:14: (100 mg Hospita capsule 21 total) by l mouth 2 (two) times a day. carvediloL 2021-08 Yes 3.125mg Q.5D Take 1 Me thodi (COREG) 1-[address] 3.125 MG 00:00: (3.125 mg Hosp maame tablet 00 total) by l mouth 2 (two) times a day. triamcinolo Yes See Admin M jialogan ne 04-[address] (KENALOG) 00:00: ns. Hospita 0.1 % cream 00 l DICLOFENAC Yes [id number] TAKE 1 U nivers 75 mg EC 5-27 TABLET BY ity of tablet 00:00: MOUTH [place] 00 TWICE A Medical DAY WITH Branch MEALS DICLOFENAC 2020-0 Yes [id number] TAKE 1 U nivers 75 mg EC 5-27 TABLET BY ity of tablet 00:00: MOUTH 00 TWICE A Medical DAY WITH Branch MEALS DICLOFENAC 2020-0 Yes [id number] TAKE 1 U nivers 75 mg EC 5-27 TABLET BY ity of tablet 00:00: MOUTH 00 TWICE A Medical DAY WITH Branch MEALS DICLOFENAC 2020-0 Yes [id number] TAKE 1 U nivers 75 mg EC 5-27 TABLET BY ity of tablet 00:00: MOUTH 00 TWICE A Medical DAY WITH Branch MEALS DICLOFENAC 2020-0 Yes [id number] TAKE 1 U nivers 75 mg EC 5-27 TABLET BY ity of tablet 00:00: MOUTH 00 TWICE A Medical DAY WITH Branch MEALS DICLOFENAC 2020-0 Yes [id number] TAKE 1 U nivers 75 mg EC 5-27 TABLET BY ity of tablet 00:00: MOUTH [place] 00 TWICE A Medical DAY WITH Branch MEALS DICLOFENAC 2020-0 Yes [id number] TAKE 1 U nivers 75 mg EC 5-27 TABLET BY ity of tablet 00:00: MOUTH [place] 00 TWICE A Medical DAY WITH Branch MEALS DICLOFENAC 2021-0 Yes [id number] TAKE 1 U nivers 75 mg EC 5-27 TABLET BY ity of tablet 00:00: MOUTH [place] 00 TWICE A Medical DAY WITH Branch MEALS DICLOFENAC 2021-0 Yes [id number] TAKE 1 U nivers 75 mg EC 5-27 TABLET BY ity of tablet 00:00: MOUTH [place] 00 TWICE A Medical DAY WITH Branch MEALS DICLOFENAC 2020-0 Yes [id number] TAKE 1 U nivers 75 mg EC 5-27 TABLET BY ity of tablet 00:00: MOUTH [place] 00 TWICE A Medical DAY WITH Branch MEALS DICLOFENAC 2020-0 Yes [id number] TAKE 1 U nivers 75 mg EC 5-27 TABLET BY ity of tablet 00:00: MOUTH [place] 00 TWICE A Medical DAY WITH Branch MEALS DICLOFENAC 2020-0 Yes [id number] TAKE 1 U nivers 75 mg EC 5-27 TABLET BY ity of tablet 00:00: MOUTH [place] 00 TWICE A Medical DAY WITH Branch MEALS DICLOFENAC 2020-0 Yes [id number] TAKE 1 U nivers 75 mg EC 5-27 TABLET BY ity of tablet 00:00: MOUTH [place] 00 TWICE A Medical DAY WITH Branch MEALS DICLOFENAC 1-0 2023- No [id number] TAKE 1 Univers 75 mg EC 5-27 07-25 TABLET BY ity o f tablet 00:00: 00:00 MOUTH [place] 00 :00 TWICE A Medical DAY WITH Branch MEALS DICLOFENAC 1-0 2023- No [id number] TAKE 1 Univers 75 mg EC 5-27 07-25 TABLET BY ity o f tablet 00:00: 00:00 MOUTH [place] 00 :00 TWICE A Medical DAY WITH Branch MEALS DICLOFENAC 1-0 2023- No [id number] TAKE 1 Univers 75 mg EC 5-27 07-25 TABLET BY ity o f tablet 00:00: 00:00 MOUTH [place] 00 :00 TWICE A Medical DAY WITH Branch MEALS diclofenac 2019-0 Yes [id number] 75mg Take 1 U nivers 75 mg EC 6-08 tablet by ity of tablet 00:00: mouth 2 [place] 00 (two) Medical times Branch daily with meals. losartan 2018- Yes 100mg Take 100 Univ ers 100 mg 8-08 mg by ity of tablet 15:02: mouth [place] 54 daily. Medical Branch losartan 2018-0 Yes 100mg Take 100 Univ ers 100 mg 8-08 mg by ity of tablet 15:02: mouth [place] 54 daily. Medical Branch losartan 2019-0 Yes 100mg Take 100 Univ ers 100 mg 8-08 mg by ity of tablet 15:02: mouth [place] 54 daily. Medical Branch losartan Yes 100mg Take 100 Univ ers 100 mg 8-08 mg by ity of tablet 15:02: mouth [place] 54 daily. Medical Branch losartan Yes 100mg Take 100 Univ ers 100 mg 8-08 mg by ity of tablet 15:02: mouth [place] 54 daily. Medical Branch losartan Yes 100mg Take 100 Univ ers 100 mg 8-08 mg by ity of tablet 15:02: mouth [place] 54 daily. Medical Branch losartan Yes TAKE 1 Methodi (COZAAR) 50 6-[address] MG tablet 00:00: EVERY DAY Hos kathe 00 l atorvastati 2021- No TAKE 1 Met hodi n (LIPITOR) 3-15 12-[address] 10 MG 00:00: 00:00 MOUTH Hospita tablet 00 :00 EVERY l NIGHT atorvastati Yes TAKE 1 Meth logan n (LIPITOR) 3-[address] 10 MG 00:00: EVERY DAY Hospita tablet 00 l rivaroxaban Yes 20mg QD Take [address] [facility] (XARELTO) 2-17 tablet (20 Luke [facility] 20 mg Tab 00:00: mg total) Med ical tablet 00 by mouth Center daily. losartan Yes 50mg QD Take [address] [facility] (COZAAR) 50 2-10 by mouth Luke s MG tablet 16:27: daily. Medica l [address] [place] [address] atorvastati Yes 10mg QD Take [address] n (LIPITOR) 2-10 by mouth Luke s 10 MG 16:27: daily. Medical tablet 41 Center Immunizations Ordered Immunization Filled Immunization Date Status Commen ts Source Name Name [facility]erm[facility] COVID-19 2021-07-05 Completed Methodis t AD26 VACCINATION 00:00:00 [facility] COVID-19 2020-11-29 Completed Methodis t AD26 VACCINATION 00:00:00 Hospital Vital Signs Vital Name Observation Time Observation Value Comments Source Systolic blood 2023-03-13 18:15:00 129 mm[Hg] Univer sity [facility] pressure Medical [facility] Diastolic blood 2023-03-13 18:15:00 72 mm[facility]Hg[facility] 2023-03-13 18:15:00 71 /min [facility] [place] [facility] Body height 2023-03-13 18:15:00 160 cm [facility] [place] [facility] Body weight 2023-03-13 18:15:00 81.103 kg [facility] [place] [facility] BMI 2023-03-13 18:15:00 31.67 kg/m2 [facility] [place] [facility] Oxygen saturation 2023-03-13 18:15:00 95 /min Uni [facility] in Arterial blood Medical Br anch by Pulse oximetry Systolic blood 2023-01-17 20:04:00 136 mm[Hg] [facility] [place] pressure Medical Branch Diastolic blood 2023-01-17 20:04:00 83 mm[Hg] [facility] [place] [facility] Heart rate 2023-01-17 20:04:00 60 /min [facility] [place] [facility] Body height 2023-01-17 20:04:00 160 cm [facility] [place] [facility] Body weight 2023-01-17 20:04:00 80.74 kg [facility] [place] [facility] BMI 2023-01-17 20:04:00 31.53 kg/m2 [facility] [place] [facility] Body weight 2023-01-09 19:43:00 80.74 kg [facility] [place] [facility] BMI 2023-01-09 19:43:00 31.53 kg/m2 [facility] [place] [facility] Body weight 2023-01-02 19:42:00 80.74 kg [facility] [place] [facility] BMI 2023-01-02 19:42:00 31.53 kg/m2 [facility] [place] [facility] Body height 2022-12-07 15:33:00 160 cm [facility] [place] [facility] Body weight 2022-12-07 15:33:00 80.74 kg [facility] [place] [facility] BMI 2022-12-07 15:33:00 31.53 kg/m2 [facility] [place] [facility] Systolic blood 2021-03-24 14:05:00 171 mm[Hg] [facility]iver [facility] [place] pressure Medical Branch Diastolic blood 2021-03-24 14:05:00 81 mm[Hg] [facility]ive rsity [facility] [place] pressure Medical Branch Heart rate 2021-03-24 14:05:00 65 /min [facility] Body weight 2021-03-24 13:57:00 70.308 kg [facility] BMI 2021-03-24 13:57:00 25.02 kg/m2 [facility] Systolic blood 2022-07-20 20:03:00 135 mm[Hg] Method [facility] pressure Diastolic blood 2022-07-20 20:03:00 77 mm[Hg] [facility] pressure Heart rate 2022-07-20 20:03:00 76 /min [facility] Body height 2022-07-20 20:03:00 160 cm [facility] Body weight 2022-07-20 20:03:00 80.65 kg [facility] BMI 2022-07-20 20:03:00 31.50 kg/m2 [facility] Oxygen saturation 2022-07-20 20:03:00 97 /min Met [facility] in Arterial blood by Pulse oximetry Procedures Procedure Date / Time Performed Performing Clinician [facility] [place] [facility] e ASSIGNMENT OF BENEFITS 2022-12-07 15:18:10 Doctor Unassigned, No [facility] Plan of Care Planned Activity Planned Date Details Comments Source Future Scheduled 2023-02-07 Hepatitis C screening [facility] Test 06:59:55 (procedure) [code = 966160242] Future Scheduled 2023-02-07 SHINGLES VACCINES (1 Met [facility] Test 06:59:55 of 2) [code = SHINGLES VACCINES (1 of 2)] Future Scheduled 2023-02-07 65+ PNEUMOCOCCAL [facility] Test 06:59:55 VACCINE (1 - PCV) [code = 65+ PNEUMOCOCCAL VACCINE (1 - PCV)] Future Scheduled 2023-02-07 DXA SCAN [code = DXA Met [facility] Test 06:59:55 SCAN] Future Scheduled 2023-02-07 COVID-19 VACCINE (3 - [facility] Test 06:59:55 Booster for Percy series) [code = COVID-19 VACCINE (3 - Booster for Percy series)] Encounters Start End Encounter Admission Attending Care Care Encounter Source Date/Time Date/Time Type Type Clinicians Facility Department ID 2021-06-17 Emergency [facility] [id number] Univers 23:18:34 ity [facility] 2023-06-14 2023-06-14 Outpatient R JANICE SANDOVAL [facility] [id number] Univers 10:00:00 10:00:00 JANICE SANDOVAL [facility] 2023-04-03 2023-04-03 Patient Jaime [facility] [id number] [id number] Univers 00:00:00 00:00:00 Secure Msg [facility] 350.1.13.10 [facility] 4.2.7.2.686 Pravin as MICKY?BLEA [id number] Sc kaleb [address] MEDICAL OFFICE [facility] 2023-03-21 2023-03-21 [facility]phone [facility] [id number] [facility] 00:00:00 00:00:00 [facility] 350.1.13.10 [facility] 4.2.7.2.686 Pravin as MICKY?BLEA [id number] [address] MEDICAL OFFICE [facility] 2023-03-13 2023-03-13 Outpatient R JANICE SANDOVAL [facility] [id number] Univers 13:00:00 14:10:21 JANICE SANDOVAL [facility] 2023-03-13 2023-03-13 [facility] 1.2.840.114 [id number] Univers 13:00:00 14:10:21 Visit [facility] 350.1.13.10 ity of [place] 4.2.7.2.686 Pravin as MICKY?BLEA [id number] Sc kaleb [address] MEDICAL OFFICE [facility] 2023-01-17 2023-01-17 Outpatient R DAMIR [facility] [id number] Univers 14:45:00 15:30:33 POLLO mendeita [facility] 2023-01-17 2023-01-17 Office [facility] [id number] Univers 14:45:00 15:30:33 Visit [facility] 350.1.13.10 it y of [place] 4.2.7.2.686 Pravin as MICKY?BLEA [phone] Me kaleb KENDALL [address] MEDICAL OFFICE [facility] 2023-01-09 2023-01-09 Outpatient R ANY [facility] [id number] Univers 14:45:00 15:29:40 SHELDON lucie [facility] 2023-01-09 2023-01-09 Office [facility] 1.2.840.114 [id number] Univers 14:45:00 15:29:40 Visit Sheldon Grier HEALTH 350.1.13.10 it y of [place] 4.2.7.2.686 Pravin as MICKY?BLEA [id number] Sc kaleb KENDALL [address] [facility] OFFICE [facility] 2023-01-02 2023-01-02 [facility] [id number] Univers 14:45:00 14:58:21 SHELDON lucie [facility] 2023-01-02 2023-01-02 [facility] 1.2.840.114 [id number] Univers 14:45:00 14:58:21 Visit Sheldon Cherrie HEALTH 350.1.13.10 it y of [place] 4.2.7.2.686 Pravin as MICKY?BLEA [id number] Sc kaleb [address] OFFICE [facility] 2022-12-26 2022-12-26 Letter [facility] 1.2.840.114 [id number] Univers 00:00:00 00:00:00 (Out) Elizabeth HEALTH 350.1.13.10 it y of [place] 4.2.7.2.686 Pravin as MICKY?BLEA [id number] Sc kaleb KENDALL [address] [facility] OFFICE [facility] 2022-12-14 2022-12-14 [facility] [id number] Univers 09:45:00 09:45:00 POLLO mendieta [facility] 2022-12-07 2022-12-07 [facility] [id number] Univers 10:45:00 10:49:23 POLLOJAGDEEP mendieta [facility] 2022-12-07 2022-12-07 Office [facility] [id number] Univers 10:45:00 10:49:23 Visit Pollo HEALTH 350.1.13.10 it y [facility] 4.2.7.2.686 Pravin as MICKY?BLEA [id number] Sc kaleb KENDALL [address] [facility] MEDICAL OFFICE BUILDING 2022-12-07 2022-12-07 Orders Doctor SHARMILA 1.2.840.114 [id number] Univers 00:00:00 00:00:00 Only Unassigned, LULY 350.1.13.10 ity of [place] [facility] 4.2.7.2.686 Pravin as [id number] [address] 2022-11-30 2022-11-30 Telephone ARTHUR Reich 1.2.840.114 [id number] Univers 00:00:00 00:00:00 [facility] 350.1.13.10 it y of [place] 4.2.7.2.686 Pravin as MICKY?BLEA [id number] Sc kaleb KENDALL [address] [facility] MEDICAL OFFICE [facility] 2022-07-20 2022-07-20 Office Regi, 1.2.840.1 [id number] Methodi 14:00:00 15:00:00 Visit Rosalee Steinberg [address]402.1.[address] 3.430.2.7 Hospit a .3.062331 l .8 2022-07-20 2022-07-20 Outpatient [facility] [id number] [place] 00:00:00 00:00:[address] ROSAL[address] 2022-07-20 2022-07-20 Telephone Regi 1.2.840.1 [id number] Methodi 00:00:00 00:00:00 Rosalee L [address]92.1.[address] 3.430.2.7 Hospit a .3.578029 l .8 2022-07-20 2022-07-20 Travel 1.2.840.1 [id number] [id number] Methodi 00:00:00 00:00:[address] 3.430.2.7 0.2.7.3.698 Ho spita .3.183638 084.8 l .8 2021-03-24 2021-03-24 Outpatient R DAMIR [facility] [id number] Univers 09:00:00 10:20:17 POLLO mendieta [facility] 2021-03-24 2021-03-24 Office [facility] [id number] [id number] Univers 08:55:47 10:20:17 Visit Pollo [place] 350.1.13.10 it y of SURGICAL 4.2.7.2.686 Pravin as SPECIALTI [id number] Sc dical ES 198 [facility] 2021-03-24 2021-03-24 Outpatient R DAMIR [facility] [id number] Univers 09:00:00 09:00:00 POLLO mendieta [facility] 2021-01-12 2021-01-12 [facility] [id number] Univers 13:20:25 23:59:00 POLLO mendieta [facility] 2020-06-04 2020-06-04 Emergency [facility] 1.2.367.048 [id number] 05:54:00 07:11:00 Hossein Coreas 350.1.13.10 [place] 4.2.7.2.686 [place] [id number] 2020-03-19 2020-03-19 [facility] 1.2.558.050 [id number] 00:00:00 00:00:00 Pollo Bliss 350.1.13.10 Surgical 4.2.7.2.686 Specialti [id number] [place] 2020-03-10 2020-03-10 [facility] [id number] Univers 14:45:00 14:45:00 POLLO mendieta [facility] 2020-01-26 2020-01-26 [facility] [id number] Univers 15:14:59 23:59:00 POLLO mendieta [facility] 2020-01-26 2020-01-26 [facility] [id number] Univers 15:14:59 23:59:00 POLLO mendieta [facility] 2020-01-26 2020-01-26 [facility] 1.2.840.114 [id number] Univers 15:14:00 23:59:00 Encounter [facility] 350.1.13.10 ity of Surgical 4.2.7.2.686 Pravin as Specialti [id number] Me dical es [address] [place] 2020-01-26 2020-01-26 Hospital [facility] 1.2.840.114 [id number] 15:14:00 23:59:00 Encounter [facility] 350.1.13.10 Surgical 4.2.7.2.686 Specialti [id number] es [address] [place] 2020-01-26 2020-01-26 Office [facility] [id number] [id number] 14:48:16 15:42:05 Visit Poll[facility] 350.1.13.10 Surgical 4.2.7.2.686 Specialti [id number] es [address] [place] 2020-01-26 2020-01-26 Outpatient R [facility] [id number] Univers 15:00:00 15:00:00 POLLO mendieta [facility] Results This patient has no known results. Notes Date/Time Note Provider Source 2023-04-03 [facility] 12:03:35-00:[address] Dr. Jaime Ramirez 2023-03-22 Formatting of this note might be differe nt from the original. Nicki Qiu LVN [facility] 14:17:11-00:00 Notified HOP to have patient cut the tablet in half (diclofenac) patient verbalized understanding. Nicki Qiu LVN 03/22/2023 2:18 PM 2023-03-22 Formatting of this note might be differe nt from the original. Pallavi Gutierrez MA [facility] 14:13:17-00:00 Attempted to reach patient , she was not home spoke with the gave him recommendations from Dr. Sandoval 2023-03-22 [facility] 14:01:41-00:00 She can cut in half for now to see if that helps . Best, Dr. Sandoval 2023-03-21 Formatting of this note might be differe nt from the original. Nicki Qiu LVN [facility] 10:54:14-00:00 Please review and advise. 2023-03-21 Formatting of this note might be differe nt from the original. Farrah Engel [facility] 10:41:53-00:00 Pt is having issues with dic lofenac 75 mg EC tablet pt says she cant function with this during day makes her drowsy. She says bottle says not to break pill in half so is taken one full pill Electronically signed by Farrah Engel at 09/2022 10:44 AM CDT
--- NOTE | 2023-04-08 21:11 | RAD REPORT ---
EXAM DESCRIPTION: RAD - Hand Left 3 View - 04/08/2023 8:53 pm CLINICAL HISTORY: SWELLING COMPARISON: Hand Left 3 View dated 07/04/2021 FINDINGS/IMPRESSION: No left hand fractures identified. Advanced degenerative changes are present th e base of the thumb. Osteopenia. Ankylosis across some of the interphalangeal joints may be from dege nerative changes including osteoarthritis or psoriatic arthritis.
[2023-04-08] MEDS ORDERED: BUPIVACAINE 0.5% PF 10 ML VIAL ONE (21:17)
[2023-04-08] MEDS ORDERED: LIDOCAINE 1% 20 ML MDV ONE (21:17)
[2023-04-08 21:27] LABS: Absolute Lymphocytes (CBC) 1.3 K/uL (0.7-4.9); Hematocrit 36.6 % (36.0-45.0); Lymphocytes % 16.3 % (15.3-44.8); MCV 85.8 fL (80-100); MPV 8.2 fL (7.6-11.3); Platelets 175 thou/uL (152-406); RBC Red Blood Cell Count 4.26 M/uL (3.86-4.86)
[2023-04-08] MEDS ORDERED: MORPHINE 2 MG/ML SYR ONE (22:00)
[2023-04-08] MEDS ORDERED: ONDANSETRON 4 MG/2 ML VIAL ONE (22:00)
--- NOTE | 2023-04-08 22:55 | EDPHYS ---
Physician Documentation [facility] Name: Rosario Randhawa Age: 77 yrs Sex: Female : 1945 Arrival Date: 04/08/2023 Time: 19:34 Bed 14 Private MD: ED Physician Kris Daley HPI: 04/08 20:30 This 77 yrs old Female presents to ER via Ambulatory with complaints of INFECTED THUMB. cp 20:30 The patient or guardian reports pain, swelling, tenderness. cp 20:30 The complaints affect the distal phalanx left thumb. Context: resulted from an unknown cp cause. Onset: The symptoms/episode began/occurred 1 week(s) ago, and became worse today. Associated signs and symptoms: Pertinent negatives: cyanosis distally, decreased sensation distally, fever. The patient has been recently seen at an urgent care, today, prescribed oral and topical antibiotic and Tylenol #3 for pain. Historical: - Allergies: 20:05 "sensitive to anything that makes some drowsy"; nj1 20:05 COVID vaccine; nj1 - PMHx: 20:05 Arthritis; High Cholesterol; Hypertension; PE; nj1 - PSHx: 20:05 Appendectomy; Hysterectomy; Bladder suspension; Varicose vein; nj1 - Immunization history:: Client reports receiving the 2nd dose of the Covid vaccine. - Social history:: Smoking status: Patient denies any tobacco usage or history of. ROS: 20:35 Constitutional: Negative for body aches, chills, fever. cp 20:35 Cardiovascular: Negative for chest pain. 20:35 Respiratory: Negative for cough, shortness of breath, wheezing. 20:35 Abdomen/GI: Negative for abdominal pain, nausea, vomiting, and diarrhea. 20:35 MS/extremity: Positive for erythema, pain, swelling, tenderness, of the distal phalanx of left thumb, Negative for injury or acute deformity, paresthesias. 20:35 Neuro: Negative for altered mental status, headache, numbness, tingling, weakness. 20:35 All other systems are negative. Exam: 20:40 Constitutional: The patient appears in no acute distress, alert, awake, non-toxic, well cp developed, well nourished, in obvious pain, uncomfortable. 20:40 Head/Face: Normocephalic, atraumatic. cp 20:40 Cardiovascular: Rate: normal. 20:40 Respiratory: the patient does not display signs of respiratory distress, Respirations: normal, no use of accessory muscles, no retractions. 20:40 Abdomen/GI: Inspection: abdomen appears normal. 20:40 Musculoskeletal/extremity: Extremities: grossly normal except: noted in the distal phalanx of left thumb: Examination shows marked swelling of the proximal nailbed with noted proximal subungual pus and swelling noted proximal to the nail extending radially into the palmar side of the distal phalanx. There is noted erythema and marked tenderness to palpation, Perfusion: the extremity is with brisk capillary refill, the left thumb Sensation intact. Vital Signs: 19:56 BP 144 / 86; Pulse 87; Resp 17; Temp 99.6; Pulse Ox 100% ; Weight 68.04 kg; Height 5 nj1 ft. 3 in. ; Pain 9/10; 21:50 BP 159 / 91; Pulse 83; Resp 18 S; Pulse Ox 100% on R/A; ha1 23:11 BP 155 / 85; Pulse 77; Resp 16; Temp 97.7; Pulse Ox 94% ; sm8 19:56 Body Mass Index 26.57 (68.04 kg, 160.02 cm) nj1 19:56 Pain Scale: Adult nj1 Procedures: 23:00 I \\T\\ D: Incision and drainage was performed for an abscess of the proximal nail of left cp thumb Prepped with Betadine, Anesthetized with digital block performed with 6 cc mixture 1% lidocaine w/o epi and 0.5% marcaine. Incised with #11 blade. Drained moderate amount purulent fluid. bloody fluid. Dressing: sterile 4x4 gauze, the patient tolerated the procedure well. MDM: 20:11 Patient medically screened. 22:54 Data reviewed: vital signs, nurses notes, radiologic studies, plain films. 22:54 I considered the following discharge prescriptions or medication management in the emergency department Medications were administered in the Emergency Department. See MAR. Care significantly affected by the following chronic conditions: Hypertension. Counseling: I had a detailed discussion with the patient and/or guardian regarding the historical points, exam findings, and any diagnostic results supporting the discharge/admit diagnosis, lab results, radiology results, the need for outpatient follow up, a hand specialist, to return to the emergency department if symptoms worsen or persist or if there are any questions or concerns that arise at home. Response to treatment: the patient's symptoms have markedly improved after treatment, and as a result, I will discharge patient. 04/08 20:12 Order name: CBC with Diff; Complete Time: 22:51 cp 04/08 22:52 Interpretation: Reviewed. cp 04/08 20:12 Order name: BMP; Complete Time: 22:51 cp 04/08 22:52 Interpretation: Reviewed. cp 04/08 20:12 Order name: XRAY Hand LEFT 3 View; Complete Time: 22:51 cp 04/08 22:51 Interpretation: Report reviewed. cp 04/08 20:12 Order name: IV Saline Lock; Complete Time: 21:15 cp 04/08 20:12 Order name: Labs collected and sent; Complete Time: 21:15 cp 04/08 20:45 Order name: I\\T\\D Setup; Complete Time: 21:07 cp Administered Medications: 21:50 Drug: Ondansetron IVP 4 mg Route: IVP; Site: right antecubital; ha1 23:11 Follow up: Response: No adverse reaction; Marked relief of symptoms vc1 21:52 Drug: morphine IVP or IV 2 mg Route: IVP; Infused Over: 4 mins; Site: right antecubital;ha1 23:11 Follow up: Response: No adverse reaction; Marked relief of symptoms; Pain is decreased vc1 22:48 Drug: Lidocaine Infiltration (1 %) 10 ml {Note: administered by Tao Turpin RN.} vc1 Volume: 20 ml; Route: Infiltration; Site: affected area; 22:48 Drug: Bupivacaine Infiltration (0.5 %) 5 ml {Note: administered by Tao turpin.} Volume: vc1 10 ml; Route: Infiltration; Site: affected area; 23:00 Drug: Clindamycin IVPB 600 mg Route: IVPB; Infused Over: 30 mins; Site: right vc1 antecubital; 23:08 Drug: Trimethoprim-Sulfamethoxazole PO (160 mg-800 mg (DS) 1 tablet Route: PO; vc1 Disposition Summary: 04/08/23 22:54 Discharge Ordered Location: Home cp Problem: new cp Symptoms: have improved cp Condition: Stable cp Diagnosis - Cutaneous abscess of left upper limb - left thumb cp Followup: cp - With: Omega Heredia MD - When: 2 - 3 days - Reason: Wound Recheck Discharge Instructions: - Discharge Summary Sheet cp - Incision and Drainage cp - Paronychia cp - Incision and Drainage, Care After cp Forms: - Medication Reconciliation Form cp - Thank You Letter cp - Antibiotic Education cp - Prescription Opioid Use cp - Patient Portal Instructions cp - Leadership Thank You Letter cp Prescriptions: - Ibuprofen 600 mg Oral Tablet - take 1 tablet by ORAL route every 8 hours As needed take with food; 30 tablet; cp Refills: 0, Product Selection Permitted - Bactrim DS 800-160 mg Oral Tablet - take 1 tablet by ORAL route every 12 hours for 7 days; 14 tablet; Refills: 0, cp Product Selection Permitted Signatures: Dispatcher [employer] EDMS Tao Turpin PA PA cp Calcote, Vanessa RN RN vc1 Eusebia Desir RN RN ha1 Kemi Tom RN RN nj1 Corrections: (The following items were deleted from the chart) 04/09 19:16 19:13 MS/extremity: Positive for erythema, pain, swelling, tenderness, of the distal cp phalanx of left thumb, Negative for injury or acute deformity, paresthesias, cp 19:16 19:13 Constitutional: Negative for body aches, chills, fever, cp cp 19:16 19:13 Respiratory: Negative for cough, shortness of breath, wheezing, cp cp 19:16 19:13 Abdomen/GI: Negative for abdominal pain, nausea, vomiting, and diarrhea, cp cp 19:16 19:13 Cardiovascular: Negative for chest pain, cp cp 19:16 19:13 Neuro: Negative for altered mental status, headache, numbness, tingling, cp weakness, cp 19:16 19:13 All other systems are negative, cp cp
--- NOTE | 2023-04-08 22:55 | ER ---
Nurse's Notes [facility] Name: Rosario Randhawa Age: 77 yrs Sex: Female : 1945 Arrival Date: 04/08/2023 Time: 19:34 Bed 14 Private MD: Diagnosis: Cutaneous abscess of left upper limb-left thumb Presentation: 04/08 19:56 Chief complaint: Patient states: Left thumb pain. Swelling noted. States first noticed nj1 infection about a week ago, got better and then worse. Went to urgent care this morning, given mupirocin/clindamycin/tylenol 3 but daughter in law concerned about it and though that it may need drainage/pressure release. Coronavirus screen: Vaccine status: Patient reports receiving the 2nd dose of the covid vaccine. Ebola Screen: Patient denies travel to an Ebola-affected area in the 21 days before illness onset. Initial Sepsis Screen: Does the patient meet any 2 criteria? No. Patient's initial sepsis screen is negative. Does the patient have a suspected source of infection? No. Patient's initial sepsis screen is negative. Risk Assessment: Do you want to hurt yourself or someone else? Patient reports no desire to harm self or others. Onset of symptoms was April 01, 2023. 19:56 Method Of Arrival: Ambulatory [facility] 19:56 Acuity: JOSE 3 nj1 Triage Assessment: 21:30 General: Appears in no apparent distress. uncomfortable, Behavior is calm, cooperative, vc1 appropriate for age. Pain: Complains of pain in dorsal aspect of distal phalanx of left thumb Pain does not radiate. Pain currently is 10 out of 10 on a pain scale. Quality of pain is described as pressure, throbbing. 21:30 EENT: No deficits noted. No signs and/or symptoms were reported regarding the EENT vc1 system. Neuro: Level of Consciousness is awake, alert, obeys commands, Oriented to person, place, time, situation, Appropriate for age. Cardiovascular: No deficits noted. Respiratory: Airway is patent Respiratory effort is even, unlabored, Respiratory pattern is regular, symmetrical. GI: No deficits noted. No signs and/or symptoms were reported involving the gastrointestinal system. : No deficits noted. No signs and/or symptoms were reported regarding the genitourinary system. Derm: Wound noted left thumb. Musculoskeletal: No deficits noted. No signs and/or symptoms reported regarding the musculoskeletal system. Historical: - Allergies: 20:05 "sensitive to anything that makes some drowsy"; nj1 20:05 COVID vaccine; nj1 - PMHx: 20:05 Arthritis; High Cholesterol; Hypertension; PE; nj1 - PSHx: 20:05 Appendectomy; Hysterectomy; Bladder suspension; Varicose vein; nj1 - Immunization history:: Client reports receiving the 2nd dose of the Covid vaccine. - Social history:: Smoking status: Patient denies any tobacco usage or history of. Screenin:46 [facility] ED Fall Risk Assessment (Adult) History of falling in the last 3 months, vc1 including since admission No falls in past 3 months (0 pts) Confusion or Disorientation No (0 pts) Intoxicated or Sedated No (0 pts) Impaired Gait No (0 pts) Mobility Assist Device Used No (0 pt) Altered Elimination No (0 pt) Score/Fall Risk Level 0 - 2 = Low Risk Oriented to surroundings, Maintained a safe environment, Educated pt \\T\\ family on fall prevention, incl call for assistance when getting out of bed. Abuse screen: Denies threats or abuse. Nutritional screening: No deficits noted. Tuberculosis screening: No symptoms or risk factors identified. Assessment: 23:11 Reassessment: No changes from previously documented assessment. Patient and/or family vc1 updated on plan of care and expected duration. Pain level reassessed. Patient states feeling better. Patient states symptoms have improved. Vital Signs: 19:56 BP 144 / 86; Pulse 87; Resp 17; Temp 99.6; Pulse Ox 100% ; Weight 68.04 kg; Height 5 [facility] ft. 3 in. ; Pain 9/10; 21:50 BP 159 / 91; Pulse 83; Resp 18 S; Pulse Ox 100% on R/A; ha1 23:11 BP 155 / 85; Pulse 77; Resp 16; Temp 97.7; Pulse Ox 94% ; sm8 19:56 Body Mass Index 26.57 (68.04 kg, 160.02 cm) [facility] 19:56 Pain Scale: Adult [facility] ED Course: 19:38 Patient arrived in ED. es 20:05 Triage completed. [facility] 20:08 Tao Turpin PA is PHCP. cp 20:08 Kris Daley MD is Attending Physician. cp 20:09 Arm band placed on right wrist. nj1 20:54 XRAY Hand LEFT 3 View In Process Unspecified. EDMS 21:15 Zelda Jewell, RN is Primary Nurse. vc1 22:00 Patient has correct armband on for positive identification. Bed in low position. Pulse vc1 ox on. NIBP on. 22:53 Omega Heredia MD is Referral Physician. cp 23:09 Assist provider with I \\T\\ D: of an abscess on left thumb Set up I\\T\\D tray. Performed by vc 1 Tao Turpin PA Dressing with Neosporin and 4X4s, coban Patient tolerated well. 23:34 Provided Education on: Follow up with hand surgeon. vc1 23:34 IV discontinued, intact, bleeding controlled, No redness/swelling at site. Pressure vc1 dressing applied. Administered Medications: 21:50 Drug: Ondansetron IVP 4 mg Route: IVP; Site: right antecubital; ha1 23:11 Follow up: Response: No adverse reaction; Marked relief of symptoms vc1 21:52 Drug: morphine IVP or IV 2 mg Route: IVP; Infused Over: 4 mins; Site: right antecubital;ha1 23:11 Follow up: Response: No adverse reaction; Marked relief of symptoms; Pain is decreased vc1 22:48 Drug: Lidocaine Infiltration (1 %) 10 ml {Note: administered by Tao Turpin RN.} vc1 Volume: 20 ml; Route: Infiltration; Site: affected area; 22:48 Drug: Bupivacaine Infiltration (0.5 %) 5 ml {Note: administered by Tao turpin.} Volume: vc1 10 ml; Route: Infiltration; Site: affected area; 23:00 Drug: Clindamycin IVPB 600 mg Route: IVPB; Infused Over: 30 mins; Site: right vc1 antecubital; 23:08 Drug: Trimethoprim-Sulfamethoxazole PO (160 mg-800 mg (DS) 1 tablet Route: PO; vc1 Medication: 23:10 VIS not applicable for this client. vc1 Outcome: 22:54 Discharge ordered by . cp 23:34 Discharged to home via wheelchair, with family. 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 medication usage, wound care, Demonstrated understanding of instructions, follow-up care, medications, wound care, Prescriptions given X 2. 23:34 Patient left the ED. vc1 Signatures: Dispatcher [employer] Heide Le Corey, PA PA cp Calcote, Vanessa RN RN vc1 Eusebia Desir RN RN ha1 Kemi Tom RN RN ar1 Lisa Siddiqui [facility]
[2023-04-08] MEDS ORDERED: SMZ./TMP. 800/160 MG TABLET ONE (23:08)
[2023-04-08] MEDS ORDERED: CLINDAMYCIN 600MG/D5W 50 ML IV ONE (23:08)
[2023-04-08 23:42] VITALS: BP 155/85; TEMP 97.7; O2SAT 94
== END 2023-04-08 23:34 | disposition home or self-care (01) ==
LOC: ER 19:34
PROC: 0H9GXZZ Drainage of Left Hand Skin, External Approach (ICD-10-PCS; principal; 2023-04-08)
DX: L02.512 Cutaneous abscess of left hand (principal); I10 Essential (primary) hypertension; Z88.7 Allergy status to serum and vaccine
CPT/HCPCS: 85025; 80048; 36415; 73130; 96375; 96374; 99284; 10060; J2001; J2270; J2405

== ENCOUNTER 2023-04-11 07:26 | Day surgery (SDC) | payer OTHER ==
[2023-04-10 13:54] LABS: Specific Gravity 1.011 (1.005-1.030); Urine Bacteria None Seen /HPF (<20); Urine Bilirubin NEGATIVE (Negative); Urine Blood Trace (Negative); Urine Clarity Clear (Clear); Urine Color Light-Yellow (Yellow); Urine Glucose NEGATIVE (Negative); Urine Protein NEGATIVE (Negative); Urine RBC <5 /HPF (None Seen); Urine Urobilinogen Normal (Normal); Urine pH 5.5 (5.0-7.0)
[2023-04-10 13:56] LABS: Absolute Lymphocytes (CBC) 1.6 K/uL (0.7-4.9); Hematocrit 36.1 % (36.0-45.0); Lymphocytes % 25.9 % (15.3-44.8); MCV 84.8 fL (80-100); MPV 8.8 fL (7.6-11.3); Platelets 188 thou/uL (152-406); RBC Red Blood Cell Count 4.26 M/uL (3.86-4.86)
--- NOTE | 2023-04-10 14:27 | RAD REPORT ---
EXAM DESCRIPTION: RAD - Chest Single View - 04/10/2023 2:07 pm CLINICAL HISTORY: preop Chest pain. COMPARISON: Chest Pa And Lat (2 Views) dated 08/21/2019; Chest Pa And Lat (2 Views) dated 05/29/2018; Chest Single View dated 05/27/2018; Chest Single View dated 09/27/2016 FINDINGS: Portable technique limits examination quality. Mild interstitial pulmonary edema. The heart is mildly enlarged. No displaced fractures. IMPRESSION: Mild CHF.
--- NOTE | 2023-04-10 15:50 | EKG ---
Test Date: 2023-04-10 Test Time: 14:17:39 [employer] Steam: WILLIAMS MEASUREMENT RESULTS: Intervals: Rate: 57 OR: 212 QRSD: 112 QT: 424 QTc: 412 [place]: P: 67 OR: 212 QRS: -31 T: 4 INTERPRETIVE STATEMENTS: Sinus bradycardia with 1st degree AV block Left axis deviation Nonspecific ST abnormality Abnormal ECG Compared to ECG 05/27/2018 03:27:46 First degree AV block now present Left-axis deviation now present ST (T wave) deviation now present Sinus rhythm no longer present Electronically Signed On 04-10-23 15:49:51 CDT by Shawn Chow
[2023-04-11] MEDS ORDERED: Ringers Lactate 1,000 ML IV ONE (07:56)
[2023-04-11] MEDS ORDERED: CEFAZOLIN SODIUM 1 GM/VIAL ONE (07:56)
[2023-04-11] MEDS ORDERED: propofoL 200 MG/20 ML VIAL IV ONE (09:12)
[2023-04-11] MEDS ORDERED: MIDAZOLAM HCL 2 MG/2 ML INJ ONE (09:12)
[2023-04-11] MEDS ORDERED: FENTANYL CITR 100 MCG/2 ML ONE (09:12)
[2023-04-11] MEDS ORDERED: LIDOCAINE 2% MPF 5 ML VIAL ONE ×2 (09:12→09:44)
[2023-04-11] MEDS ORDERED: ONDANSETRON 4 MG/2 ML VIAL ONE (09:12)
[2023-04-11] MEDS ORDERED: KETOROLAC 30 MG/ML INJ ONE (09:12)
[2023-04-11] MEDS ORDERED: dexAMETHasone 10 MG/ML VIAL ONE (09:12)
[2023-04-11] MEDS ORDERED: SILVER SULFADIAZINE 1% 25 GM TOP ONE (09:53)
[2023-04-11 11:00] VITALS: BP 107/63; TEMP 98.4; O2SAT 100
--- NOTE | 2023-04-11 18:09 | HP ---
Date of Admission: 04/11/2023 History: This is a 77-year-old white female, right-hand dominant. She has infection of left thumb _ . She has status post I and D several days ago in the emergency room after it happened; how ever, the infection has persisted despite antibiotic treatment. She . Past Medical History: No medical problems. Past Surgical History: No surgeries. Social History: She does not smoke, does not drink. Allergies: NO ALLERGIES. Medications: She is on multiple medications. See her list . Physical Examination: Vital Signs: . Extremities: The left thumb on the ulnar side has purulent discharge, surrounding erythema. There i s no paronychia. Assessment: Infection of left thumb. Plan: Incision and drainage. HECTOR/CIRO Voice ID: [id number]
--- NOTE | 2023-04-11 18:33 | OP ---
Surgeon: Omega Heredia MD Preoperative Diagnosis: Infection of left thumb. Postoperative Diagnosis: Infection of left thumb. Procedure Performed: nail plate removal. Anesthesia: General. Description Of Procedure: After satisfactory induction of general anesthesia, the left hand prepped with Betadine scrub and Betadine paint. Dry sterile drapes were applied in the usual manner. Arm wa s elevated, exsanguinated with Esmarch. Tourniquet was inflated to 250 mmHg. Hand was placed on Rot o Lock table. A periosteal elevator was used to remove the nail plate. There was purulent discharge on aspect. Cultures were taken. The wound was curetted and jet lavaged, irrigated with 3 L of Dilute Betadine solution. . Tourniquet released and then Silvadene cream applied f ollowed by 2-inch Sonia. The patient tolerated the procedure well and returned to recovery. HECTOR/CIRO Voice ID: [id number] Report ID: [id number]
== END 2023-04-11 10:55 | disposition home or self-care (01) ==
LOC: OR 07:26
PROVIDERS: ATTEND Specialist
PROC: 0HTQXZZ Resection of Finger Nail, External Approach (ICD-10-PCS; principal; 2023-04-11 09:00)
DX: L03.012 Cellulitis of left finger (principal)
CPT/HCPCS: 93005; 87070; 85025; 81001; 36415; 87205 ×2; 88304; 87075; 71045; 11730; J2704; J2001 ×2; J3010; J1100; J2405; J7120; J0690; J2250

== ENCOUNTER 2024-02-23 17:10 | Emergency (ER) | payer OTHER ==
[2024-02-23] MEDS ORDERED: dexAMETHasone 10 MG/ML VIAL ONE (17:30)
[2024-02-23] MEDS ORDERED: KETOROLAC 30 MG/ML INJ ONE (17:30)
[2024-02-23] MEDS ORDERED: TRAMADOL HCL 50 MG TAB ONE (17:31)
--- NOTE | 2024-02-23 19:22 | ER ---
Nurse's Notes [facility] Name: Rosario Randhawa Age: 78 yrs Sex: Female : 1945 Arrival Date: 02/23/2024 Time: 17:10 Bed 10 Private MD: Diagnosis: Pain in right knee;Other specified arthritis, right knee Presentation: 02/22 17:16 Chief complaint: EMS states: "toned out for right knee pain that started [place]. pt did not fall or have injury.". Coronavirus screen: At this time, the client does not indicate any symptoms associated with coronavirus-19. Ebola Screen: No symptoms or risks identified at this time. Initial Sepsis Screen: Does the patient meet any 2 criteria? No. Patient's initial sepsis screen is negative. Does the patient have a suspected source of infection? No. Patient's initial sepsis screen is negative. Risk Assessment: Do you want to hurt yourself or someone else? Patient reports no desire to harm self or others. Onset of symptoms was February 23, 2024. 17:16 Acuity: JOSE 4 mb9 17:16 Method Of Arrival: EMS: [facility] mb9 Triage Assessment: 17:18 General: Appears uncomfortable, Behavior is calm. Pain: Complains of pain in right leg mb9 Pain radiates to right knee Quality of pain is described as throbbing, Pain began suddenly, Aggravated by increased activity, repositioning, weight bearing. EENT: No signs and/or symptoms were reported regarding the EENT system. Neuro: Mcadams Agitation-Sedation Scale (RASS): 0 - Alert and Calm Level of Consciousness is awake, alert, obeys commands, Oriented to person, place, time, situation, Appropriate for age. Cardiovascular: Patient's skin is warm and dry. Respiratory: Airway is patent Respiratory effort is even, unlabored, Respiratory pattern is regular, symmetrical. GI: No signs and/or symptoms were reported involving the gastrointestinal system. : No signs and/or symptoms were reported regarding the genitourinary system. Derm: Skin is pink, warm \\T\\ dry. Musculoskeletal: Range of motion: limited in right knee. Historical: - Allergies: 17:17 COVID vaccine; mb9 - Home Meds: 17:17 losartan 100 mg Oral tab 1 tab once daily [Active]; mb9 - PMHx: 17:17 Arthritis; Hypertension; PE; High Cholesterol; mb9 - PSHx: 17:17 Appendectomy; hysterectomy; Varicose vein; bladder suspension; mb9 - Immunization history:: Adult Immunizations up to date. - Infectious Disease History:: Denies. - Social history:: Smoking status: Patient denies any tobacco usage or history of. Screenin:19 [facility] ED Fall Risk Assessment (Adult) History of falling in the last 3 months, mb9 including since admission No falls in past 3 months (0 pts) Confusion or Disorientation No (0 pts) Intoxicated or Sedated No (0 pts) Impaired Gait No (0 pts) Mobility Assist Device Used No (0 pt) Altered Elimination No (0 pt) Score/Fall Risk Level 0 - 2 = Low Risk Oriented to surroundings, Maintained a safe environment, Educated pt \\T\\ family on fall prevention, incl call for assistance when getting out of bed. Abuse screen: Denies threats or abuse. Nutritional screening: No deficits noted. Tuberculosis screening: No symptoms or risk factors identified. Assessment: 19:02 Reassessment: No changes from previously documented assessment. Patient and/or family mb9 updated on plan of care and expected duration. Pain level reassessed. Patient is alert, oriented x 3, equal unlabored respirations, skin warm/dry/pink. Vital Signs: 17:16 BP 152 / 87; Pulse 62; Resp 18; Temp 98.2; Pulse Ox 100% ; Weight 83.91 kg; Height 5 mb9 ft. 5 in. ; 19:26 BP 146 / 88; Pulse 66; Resp 18; Pulse Ox 100% on R/A; mb9 17:16 Body Mass Index 30.79 (83.91 kg, 165.1 cm) mb9 ED Course: 17:11 Patient arrived in ED. sb4 17:11 Tara Doyle PA-C is PHCP. sb4 17:11 Nolan Fuentes MD is Attending Physician. sb4 17:16 Jessica Easton RN is Primary Nurse. mb9 17:16 Arm band placed on. mb9 17:17 Triage completed. mb9 17:19 Bed in low position. Call light in reach. Side rails up X 1. Provided Education on: mb9 press call light if needing anything. Client placed on continuous cardiac and pulse oximetry monitoring. NIBP monitoring applied. Door closed. Noise minimized. Warm blanket given. Pillow given. 17:19 No provider procedures requiring assistance completed. mb9 19:02 Assisted with bedpan. mb9 19:21 aDnny Plummer MD is Referral Physician. sb4 19:26 Patient did not have IV access during this emergency room visit. mb9 Administered Medications: 17:37 Drug: Dexamethasone IM 10 mg IM once Route: IM; Site: left deltoid; mb9 19:02 Follow up: Response: No adverse reaction mb9 17:37 Drug: traMADol PO 50 mg PO once Route: PO; mb9 19:02 Follow up: Response: No adverse reaction mb9 17:38 Drug: Ketorolac IM 30 mg IM once Route: IM; Site: right deltoid; mb9 19:02 Follow up: Response: No adverse reaction mb9 Medication: 17:19 VIS not applicable for this client. mb9 Outcome: 19:21 Discharge ordered by . sb4 19:27 Discharged to home via wheelchair, with family, mb9 19:27 Condition: stable 19:27 Discharge instructions given to patient, Instructed on discharge instructions, follow up and referral plans. Demonstrated understanding of instructions, follow-up care, medications, Prescriptions given X 3, 19:39 Patient left the ED. mb9 Signatures: Tara Doyle PA-C PA-C sb4 Wilkerson, Mary Beth, RN RN mb9
--- NOTE | 2024-02-23 19:22 | EDPHYS ---
Physician Documentation [facility] Name: Rosario Randhawa Age: 78 yrs Sex: Female : 1945 Arrival Date: 02/23/2024 Time: 17:10 Bed 10 Private MD: ED Physician Nolan Fuentes HPI: 02/22 17:30 This 78 yrs old Female presents to ER via EMS with complaints of Knee Pain. sb4 17:30 The patient presents with pain. The complaints affect the right knee. patient reports sb4 history of arthritis in her right knee. states it has been worse than usual over the past few days, has been taking tylenol, celebrex, and voltaren gel without significant relief. states after walking around today, the pain got significantly worse. states she cant walk or move it. Historical: - Allergies: 17:17 COVID vaccine; mb9 - Home Meds: 17:17 losartan 100 mg Oral tab 1 tab once daily [Active]; mb9 - PMHx: 17:17 Arthritis; Hypertension; PE; High Cholesterol; mb9 - PSHx: 17:17 Appendectomy; hysterectomy; Varicose vein; bladder suspension; mb9 - Immunization history:: Adult Immunizations up to date. - Infectious Disease History:: Denies. - Social history:: Smoking status: Patient denies any tobacco usage or history of. ROS: 17:30 Constitutional: Negative for fever, chills, and weight loss, sb4 17:30 MS/extremity: Positive for pain, of the right knee, Exam: 17:30 Constitutional: This is a well developed, well nourished patient who is awake, alert, sb4 and in no acute distress. Head/Face: Normocephalic, atraumatic. Eyes: Extra-ocular motions intact. Periorbital areas with no swelling, redness, or edema. ENT: Mucous membranes moist. Skin: Warm, dry with normal turgor. Normal color with no rashes, no lesions, and no evidence of cellulitis. 17:30 Musculoskeletal/extremity: Circulation is intact in all extremities. Perfusion: the extremity is normally perfused throughout, Calf tenderness, is absent, Sensation intact. Joints: the right knee displays limited range of motion, painful range of motion, Weight bearing: is unable to bear weight, Vital Signs: 17:16 BP 152 / 87; Pulse 62; Resp 18; Temp 98.2; Pulse Ox 100% ; Weight 83.91 kg; Height 5 mb9 ft. 5 in. ; 19:26 BP 146 / 88; Pulse 66; Resp 18; Pulse Ox 100% on R/A; mb9 17:16 Body Mass Index 30.79 (83.91 kg, 165.1 cm) mb9 MDM: 17:11 Patient medically screened. sb4 19:21 Data reviewed: vital signs, nurses notes, and as a result, I will discharge patient. sb4 Counseling: I had a detailed discussion with the patient and/or guardian regarding the historical points, exam findings, and any diagnostic results supporting the discharge/admit diagnosis, the need for outpatient follow up, a orthopedic surgeon, to return to the emergency department if symptoms worsen or persist or if there are any questions or concerns that arise at home. Administered Medications: 17:37 Drug: Dexamethasone IM 10 mg IM once Route: IM; Site: left deltoid; mb9 19:02 Follow up: Response: No adverse reaction mb9 17:37 Drug: traMADol PO 50 mg PO once Route: PO; mb9 19:02 Follow up: Response: No adverse reaction mb9 17:38 Drug: Ketorolac IM 30 mg IM once Route: IM; Site: right deltoid; mb9 19:02 Follow up: Response: No adverse reaction mb9 Disposition Summary: 02/23/24 19:21 Discharge Ordered Notes: Location: Home sb4 Problem: an acute exacerbation sb4 Symptoms: have improved sb4 Condition: Stable sb4 Diagnosis - Pain in right knee sb4 - Other specified arthritis, right knee sb4 Followup: sb4 - With: Danny Plummer MD - When: As needed - Reason: Recheck today's complaints, Re-evaluation by your physician Discharge Instructions: - Discharge Summary Sheet sb4 - Joint Pain sb4 - Arthritis sb4 - Musculoskeletal Pain sb4 Forms: - Prescription Opioid Use sb4 - Patient Portal Instructions sb4 - Leadership Thank You Letter sb4 Prescriptions: - Tramadol 50 mg Oral Tablet - take 1 tablet ORAL route every 8 hours as needed; 12 tablet; Refills: 0, sb4 Product Selection Permitted - Prednisone 20 mg Oral Tablet - take 2 tablets ORAL route once daily for 5 days; 10 tablet; Refills: 0, Product sb4 Selection Permitted - Cyclobenzaprine 5 mg Oral Tablet - take 1 tablet ORAL route 3 times per day As needed; 15 tablet; Refills: 0, sb4 Product Selection Permitted Addendum: 02/26/2024 07:06 Co-signature as Attending Physician, Nolan Fuentes MD I reviewed the patient's care r n provided by the Advanced Practice Provider and agree with the diagnosis and treatment plan. Signatures: Noaln Fuentes MD MD rn Brown, Sophia, PA-C PAWoody sb4 Jessica Easton RN RN mb9
[2024-02-23 20:18] VITALS: BP 146/88; TEMP 98.2; O2SAT 100
== END 2024-02-23 19:39 | disposition home or self-care (01) ==
LOC: ER 17:10
DX: M13.861 Other specified arthritis, right knee (principal)
CPT/HCPCS: 96372; 99284; J1100

== ENCOUNTER 2024-08-28 11:34 | Emergency (ER) | payer OTHER ==
--- NOTE | 2024-08-28 12:08 | ER ---
Nurse's Notes [facility] Name: Rosario Randhawa Age: 79 yrs Sex: Female : 1945 Arrival Date: 08/28/2024 Time: 11:34 Bed IW4 Private MD: Diagnosis: Conjunctival hemorrhage, left eye Presentation: 08/28 11:47 Chief complaint: Patient states: Sudden onset of L eye pain this morning, but then pain ss subsided. Pt reports she noticed what seemed to be blood to her L eye while she was getting ready just prior to arrival. Coronavirus screen: Client denies travel out of the [place] in the last 14 days. Ebola Screen: Patient denies exposure to infectious person. Patient denies travel to an Ebola-affected area in the 21 days before illness onset. Mechanism of Injury: No Mechanism of Injury. The patient denies any loss of vision. Initial Sepsis Screen: Does the patient meet any 2 criteria? No. Patient's initial sepsis screen is negative. Does the patient have a suspected source of infection? No. Patient's initial sepsis screen is negative. Risk Assessment: Do you want to hurt yourself or someone else? Patient reports no desire to harm self or others. Onset of symptoms was August 28, 2024. 11:47 Method Of Arrival: Ambulatory ss 11:47 Acuity: JOSE 2 ss Historical: - Allergies: 11:49 COVID vaccine; ss 11:49 "sensitive to anything that makes me drowsy"; ss - PMHx: 11:49 Arthritis; High Cholesterol; Hypertension; PE; ss - PSHx: 11:49 Appendectomy; bladder suspension; hysterectomy; Varicose vein; ss - Infectious Disease History:: Denies. - Social history:: Smoking status: Patient denies any tobacco usage or history of. Vital Signs: 11:47 BP 143 / 81; Pulse 71; Resp 16; Temp 97.5(TE); Pulse Ox 100% on R/A; Weight 72.57 kg; ss Height 5 ft. 3 in. ; Pain 0/10; 11:47 Body Mass Index 28.34 (72.57 kg, 160.02 cm) ss 11:47 Pain Scale: Adult ss ED Course: 11:36 Patient arrived in ED. ra3 11:47 Sandra Briseno MD is Attending Physician. gb1 11:49 Triage completed. ss 11:49 Arm band placed on right wrist. ss 12:06 Tommy Baptiste MD is Referral Physician. gb1 12:21 No provider procedures requiring assistance completed. Patient did not have IV access ss during this emergency room visit. Administered Medications: No medications were administered Outcome: 12:07 Discharge ordered by . gb1 12:21 Discharged to home ambulatory, with family, ss 12:21 Condition: good 12:21 Discharge instructions given to patient, family, Instructed on discharge instructions, follow up and referral plans. Demonstrated understanding of instructions, follow-up care, 12:21 Patient left the ED. ss Signatures: Isha Boone RN RN Sandra Briseno MD MD gb1 Beulah Roy ra3
--- NOTE | 2024-08-28 12:08 | EDPHYS ---
Physician Documentation [facility] Name: Rosario Randhawa Age: 79 yrs Sex: Female : 1945 Arrival Date: 08/28/2024 Time: 11:34 Bed IW4 Private MD: ED Physician Sandra Briseno Historical: - Allergies: 08/28 11:49 COVID vaccine; ss 11:49 "sensitive to anything that makes me drowsy"; ss - PMHx: 11:49 Arthritis; High Cholesterol; Hypertension; PE; ss - PSHx: 11:49 Appendectomy; bladder suspension; hysterectomy; Varicose vein; ss - Infectious Disease History:: Denies. - Social history:: Smoking status: Patient denies any tobacco usage or history of. Vital Signs: 11:47 BP 143 / 81; Pulse 71; Resp 16; Temp 97.5(TE); Pulse Ox 100% on R/A; Weight 72.57 kg; ss Height 5 ft. 3 in. ; Pain 0/10; 11:47 Body Mass Index 28.34 (72.57 kg, 160.02 cm) ss 11:47 Pain Scale: Adult ss MDM: 12:02 Medical Screening Exam initiated gb1 Administered Medications: No medications were administered Disposition Summary: 08/28/24 12:07 Discharge Ordered Notes: Location: Home gb1 Problem: new gb1 Symptoms: are unchanged gb1 Condition: Stable gb1 Diagnosis - Conjunctival hemorrhage, left eye gb1 Followup: gb1 - With: Tommy Baptiste MD - When: Tomorrow - Reason: Recheck today's complaints Discharge Instructions: - Discharge Summary Sheet gb1 - Subconjunctival Hemorrhage gb1 Forms: - Medication Reconciliation Form gb1 - Antibiotic Education gb1 - Prescription Opioid Use gb1 - Patient Portal Instructions gb1 - Leadership Thank You Letter gb1 Signatures: Isha Boone, JANNA RN Sandra Mirza MD MD gb1
[2024-08-28 12:25] VITALS: BP 143/81; TEMP 97.5; O2SAT 100
== END 2024-08-28 12:21 | disposition home or self-care (01) ==
LOC: ER 11:34
DX: H11.32 Conjunctival hemorrhage, left eye (principal)
CPT/HCPCS: 99282